=== PATIENT | female | born 1965 | race Caucasian/White ===

== ENCOUNTER → 2017-11-07 09:39 | Outpatient (CLI) | payer MEDICARE, OTHER, SELFPAY ==
--- NOTE | 2017-11-07 09:54 | XR_ITS ---
XR DEXA axial skeleton HISTORY: ITS.REASON: OSTEOPENIA ORDERING PHYSICIAN: Anatoliy Pulliam MD PATIENT AGE: 52 years COMPARISON: None FINDINGS: The BMD measured at the Right femoral neck is 0.665 g/cm squared with a T score of -2.7. This is considered Osteoporotic according to the World Health Organization criteria. Fracture risk is High. Treatment is advised. L1 L4 density has a T score of -2.3 IMPRESSION: Osteoporosis with high fracture risk. Treatment suggested. Recommend follow-up exam October 2018
== END ==
PROVIDERS: Family Provider Internal Medicine Adolescent Medicine; PCP Internal Medicine Adolescent Medicine; Visit Provider Internal Medicine Adolescent Medicine
DX: M85.89 Other specified disorders of bone density and structure, multiple sites (principal)
CPT/HCPCS: 77080

== ENCOUNTER → 2020-04-28 08:54 | Outpatient (CLI) | payer MEDICARE, OTHER, SELFPAY ==
--- NOTE | 2020-04-28 08:56 | XR_ITS ---
PROCEDURE: XR DEXA AXIAL SKELETON CLINICAL HISTORY: OSTEOPOROSIS COMPARISON: CR DEXAAX XR DEXA axial skeleton from 11/07/2017 FINDINGS: The right hip BMD is 0.615 with a T-score of -2.7. The left hip BMD is 0.630 with a T-score of -2.0. The lumbar spine BMD is 0.867 with a T-score of -1.6. Previously the lowest density was at the right femoral neck with a T-score of -2.7 IMPRESSION: This patient is considered osteoporotic according to the World Health Organization criteria. Fracture risk is high. Treatment is advised. Based on these results a follow-up exam is recommended in 1 year. Dictated by: Obed Naylor MD 04/29/2020 08:52 Obed Naylor MD in [place] 04/29/2020 08:52
== END ==
PROVIDERS: PCP Internal Medicine Adolescent Medicine; Visit Provider Internal Medicine
DX: M81.0 Age-related osteoporosis without current pathological fracture (principal)
CPT/HCPCS: 77080

== ENCOUNTER → 2020-07-27 18:49 | Outpatient (CLI) | payer MEDICARE, OTHER, SELFPAY ==
[2020-07-27 19:26] LABS: Basophils # 0.1 K/mm3 (0-0.2); Basophils % 0.7 % (0.1-2.0); Eosinophils % 0.3 % (0.1-12.0); Hematocrit 42.7 % (37.0-47.0); Hemoglobin 13.9 g/dL (12.2-16.2); Lymphocytes % 23.6 % (10-50); Mean Corpuscular HGB Conc 32.6 g/dL (31.8-35.4); Mean Corpuscular Hemoglobin 31.2 pg (27.0-31.2); Mean Corpuscular Volume 95.9 fl (81-99); Mean Platelet Volume 9.6 fl (7.4-10.4); Monocytes # 0.3 K/mm3 (0.1-1.0); Monocytes % 3.7 % (1.7-9.3); Neutrophils # 6.1 K/mm3 (1.8-7.8); Neutrophils % 71.6 % (37.0-80.0); Platelet Count 389 K/mm3 (142-424); Red Blood Count 4.46 M/mm3 (4.20-5.40); Red Cell Distribution Width 14.1 % (11.5-17.5); White Blood Count 8.5 K/mm3 (4.8-10.8)
[2020-07-27 19:30] LABS: Alanine Aminotransferase 18 U/L (12-78); Aspartate Amino Transferase 27 U/L (14-36); Blood Urea Nitrogen 11 mg/dl (7-17); Carbon Dioxide 26 mmol/L (22.0-30.0); Estimated Glomerular Filt Rate 87 ml/min (>60); GFR (African American) 105 ML/MIN (>60)
[2020-07-27 19:31] LABS: Albumin Level 4.5 g/dl (3.5-5.0); Albumin/Globulin Ratio 1.2 (1.1-1.8); Alkaline Phosphatase 76 U/L (38-126); Bilirubin,Total 0.5 mg/dl (0.2-1.3); Calcium 9.7 mg/dl (8.4-10.2); Chol/HDL Ratio 2.8 (1-3.5); Cholesterol 172 mg/dl (140-200); Globulin 3.7 g/dL (1.3-3.2); Glucose 106 mg/dl (74-100); HDL Cholesterol 61 mg/dl (40-60); Total Protein,Serum 8.2 g/dl (6.3-8.2); Triglycerides 112 mg/dl (30-150); VLDL Cholesterol 22 mg/dL (0-40)
[2020-07-27 19:42] LABS: Direct LDL Cholesterol 74.77 mg/dL (100-129)
[2020-07-27 19:52] LABS: Anion Gap 14.6 mEq/L (5-15); Chloride 104 mmol/L (98-107); Potassium 4.6 mmoL/L (3.5-5.1); Sodium 140 mmol/L (136-145)
[2020-07-27 20:00] LABS: Thyroid Stimulating Hormone 2.59 uIU/mL (0.465-4.68)
[2020-07-27 20:08] LABS: Hemoglobin A1C 5.2 % (4.0-6.0)
== END ==
PROVIDERS: Visit Provider Internal Medicine Adolescent Medicine
DX: Z00.00 Encounter for general adult medical examination without abnormal findings (principal); E78.5 Hyperlipidemia, unspecified; M19.90 Unspecified osteoarthritis, unspecified site; R73.9 Hyperglycemia, unspecified
CPT/HCPCS: 80053; 80061; 83036; 84443; 85025

== ENCOUNTER → 2021-02-07 11:00 | Outpatient (CLI) | payer MEDICARE, OTHER, SELFPAY | PROVIDERS: Visit Provider Surgery | DX: Z01.812 Encounter for preprocedural laboratory examination (principal); Z11.52 Encounter for screening for COVID-19; Z12.11 Encounter for screening for malignant neoplasm of colon | CPT/HCPCS: C9803; U0003; U0005 ==

== ENCOUNTER 2021-02-09 10:31 | Day surgery (SDC) | payer MEDICARE, OTHER, SELFPAY ==
[2021-02-03 13:48] VITALS: BMI 27.4
[2021-02-09 10:43] VITALS: BP 129/77; PULSE 103; RESP 18; TEMP 36.9; O2SAT 94
[2021-02-09 10:59] VITALS: O2SAT 97
--- NOTE | 2021-02-09 11:38 | HMH.SCOPE ---
- Procedure: Date: 02/09/21 Patient Date of :: 1965 Procedure Performed:: Colonoscopy with polypectomy by snare x2 Indications:: Patient is a 55-year-old female from [place] referred by Dr. Anatoliy Pulliam for colonoscopy. Apparently she had undergone previous colonoscopies. She had apparently undergone a colon resection for large polyp. Exact details of prior procedures and nature of her surgery are unclear as this was done at outside facility. She states that her colon resection was either in 2018 or 2019. No prior colonoscopies at this institution. Performing Provider:: Frederic Romo MD Referring Provider:: Anatoliy Pulliam MD Sedation:: MAC sedation Procedure:: Patient was taken to endoscopy procedure room. She was positioned in lateral decubitus position. Adequate intravenous sedation was achieved with anesthesia titration of propofol. Please note that she required a large amount of propofol for adequate anesthesia. Variable stiffness Olympus colonoscope was inserted via the anus. With some difficulty due to redundancy of the colon it was ultimately advanced to the anastomosis. It appeared as though she had had a right hemicolectomy. Colonoscope was able to be advanced into the afferent limb of the ileum. Colonic preparation was very poor. Visualization was extremely poor despite thorough irrigation and suctioning. There was noted to be a moderate adenomatous appearing polyp in the transverse colon just distal to the anastomosis. This was removed with cold cutting snare. Colonoscope was withdrawn through the remainder of the colon. Despite all efforts visualization was quite poor. There was noted to be a small adenomatous polyp in the distal sigmoid rectosigmoid region removed with cold cutting snare. Colonoscope was withdrawn. Findings:: Extremely poor colonic preparation Likely prior right hemicolectomy Polyp just distal to the anastomosis and small polyp in the rectosigmoid region Recommendations:: Repeat colonoscopy 6 to 12 months with aggressive preparation. Complications:: None immediately apparent Estimated blood obtained (mL): 2
[2021-02-09 11:40] VITALS: BP 98/68; PULSE 84; RESP 18; TEMP 36.1; O2SAT 97
[2021-02-09 11:50] VITALS: BP 92/65; PULSE 76; RESP 18; TEMP 36.1; O2SAT 99
[2021-02-09 12:00] VITALS: BP 92/73; PULSE 76; RESP 18; TEMP 36.1; O2SAT 99
[2021-02-09 12:25] VITALS: BP 98/68; PULSE 74; RESP 18; TEMP 36.1; O2SAT 99
--- NOTE | 2021-02-09 13:22 | HMH.ANESCL ---
[facility] Anesthesia Checklist - Patient Identification Patient Identification: Arm Band, Verbal (Name & ) - Structural Data Admitted From: Home Planned Operative Procedure/s: Colonoscopy Consent for Planned Operative Procedure(s) Verified: Yes Verified Documents: Surgical Consent - NPO Status Verified Time NPO: 00:00 - Cardiovascular Assessment Heart Sounds: S1 & S2 - Airway Assessment C-Spine Mobility Assessed: Yes TMJ Mobility Assessed: Yes Dentition: Good Dentition - Neurological Assessment Level of Consciousness: Awake, Alert, Appropriate - Anesthesia Plan ASA Class: II Anesthesia Type: General [facility] History Medical History: Denies:: Cancer, Diabetes Mellitus Type 1, Diabetes Mellitus Type 2, Internal Pacemaker, MRSA, Seizures *Have you ever received a pneumonia vaccine?: No *Have you received a flu vaccine this season?: Yes Anesthesia experience/problems:: none Other Surgeries: No: Pacemaker Amputation: No Fractures: No - *Social History Last grade of school completed: High school graduate Smoking Status: Current every day smoker # Packs/Day (cigarettes): 1 Alcohol Intake: current Alcohol Intake Frequency:: holidays/special occasions only Substance Use Type: denies use *Occupational Status:: disabled Housing: house *Travel in the last 8 weeks: None Family Hx:: Diabetes, Heart Attack, Hypertension
== END 2021-02-09 12:25 | disposition home or self-care (01) ==
LOC: OUTP 10:33
PROVIDERS: PCP Internal Medicine Adolescent Medicine; Visit Provider Surgery
PROC: 0DJD8ZZ Inspection of Lower Intestinal Tract, Via Natural or Artificial Opening Endoscopic (ICD-10-PCS; principal; 2021-02-09 11:30)
DX: Z12.11 Encounter for screening for malignant neoplasm of colon (principal); Z86.010 Personal history of colon polyps; Z90.49 Acquired absence of other specified parts of digestive tract; K63.5 Polyp of colon; Z72.0 Tobacco use; Z83.3 Family history of diabetes mellitus; Z82.3 Family history of stroke; Z82.49 Family history of ischemic heart disease and other diseases of the circulatory system; Z88.2 Allergy status to sulfonamides; Z79.899 Other long term (current) drug therapy
CPT/HCPCS: 45385; 88305

== ENCOUNTER → 2021-04-04 17:40 | Outpatient (CLI) | payer MEDICARE, OTHER, SELFPAY | PROVIDERS: Visit Provider Internal Medicine Adolescent Medicine | DX: N30.01 Acute cystitis with hematuria (principal); B96.20 Unspecified Escherichia coli [E. coli] as the cause of diseases classified elsewhere | CPT/HCPCS: 87086; 87088; 87186 ==

== ENCOUNTER → 2021-07-28 07:31 | Outpatient (CLI) | payer MEDICARE, OTHER, SELFPAY ==
--- NOTE | 2021-07-28 07:35 | CT_ITS ---
FINAL REPORT CLINICAL HISTORY: 1.5 ppd x 35 years FINDINGS: Low-Dose Chest CT CTDI vol (mGy): 2.9 DLP (mGy-cm): 96.38 Axial images were obtained from the lung apex to the mid abdomen by computed tomography. Low-dose protocol was utilized. FINDINGS: CHEST: There are multiple borderline sized mediastinal and left axillary lymph nodes, nonspecific and favor reactive. The heart is proper size. There is no pericardial or pleural effusion. Limited images of the upper abdomen are unremarkable. Lung window images demonstrate moderate to severe changes of emphysema. There is mild scarring. There are several calcified granulomas in the left lung. There is a 2 mm left lower lobe nodule seen on image 69. There is another 2 mm nodule in the left lower lobe seen on image 53. There is a pleural based nodule in the medial right lower lobe measuring 5 mm seen on image 55. IMPRESSION: Lung RADS category 2. Recommend 12 month follow-up low-dose chest CT. Reviewed, Interpreted and Dictated by Frederic Gomez III, MD Transcribed by Rush Bolaños Authenticated by Frederic Gomez III, MD on 07/28/2021 11:20:40 AM [facility]
== END ==
PROVIDERS: PCP Internal Medicine Adolescent Medicine; Visit Provider Internal Medicine Adolescent Medicine
DX: Z87.891 Personal history of nicotine dependence (principal); Z12.2 Encounter for screening for malignant neoplasm of respiratory organs
CPT/HCPCS: 71271

== ENCOUNTER 2021-10-17 16:49 | Emergency (ER) | payer MEDICARE, OTHER, SELFPAY ==
[2021-10-17 17:05] VITALS: BP 153/87; PULSE 98; RESP 16; TEMP 36.9; O2SAT 96; BMI 27.9
--- NOTE | 2021-10-17 17:10 | XR_ITS ---
PROCEDURE INFORMATION: Exam: XR Right Foot Exam date and time: 10/17/2021 5:15 PM Age: 56 years old Clinical indication: Injury or trauma; Fall; Sprain or strain; Ankle; Right; Injury date: 10/16/21 TECHNIQUE: Imaging protocol: Radiologic exam of the Right foot. Views: 3 or more views. COMPARISON: CR XR ANKLE RT MIN 3V 10/17/2021 5:14 PM FINDINGS: Bones/joints: No acute fracture or dislocation. Prominent os naviculare. Mild 1st MTP joint space narrowing. Plantar calcaneal spur. Soft tissues: Normal. IMPRESSION: No acute findings.
--- NOTE | 2021-10-17 17:10 | XR_ITS ---
PROCEDURE INFORMATION: Exam: XR Right Ankle Exam date and time: 10/17/2021 5:14 PM Age: 56 years old Clinical indication: Injury or trauma; Fall; Sprain or strain; Ankle; Right; Injury date: 10/16/21 TECHNIQUE: Imaging protocol: Radiologic exam of the Right ankle. Views: 3 or more views. COMPARISON: No relevant prior studies available. FINDINGS: Bones/joints: No acute fracture or dislocation. Plantar calcaneal spur. Ankle mortise is intact. Soft tissues: Normal. IMPRESSION: No acute findings.
--- NOTE | 2021-10-17 17:26 | HMH.EDUTC ---
[facility] [place] Clinical Impression: Ankle sprain Qualifiers: Encounter type: initial encounter Involved ligament of ankle: unspecified ligament Laterality: right Qualified Code(s): S93.401A - Sprain of unspecified ligament of right ankle, initial encounter Disposition: Home, Self-Care Condition on Discharge: Good Instructions: How To Perform RICE (Rest, Ice, Compress, Elevate), How to Apply an Jevon Wrap Additional Instructions: *weight bearing as tolerated *RICE, Rest the extremity, Ice 15-20 minutes 3-4 times daily, Compress- wear the jevon wrap as discussed as much as possible to help reduce swelling and pain, Elevate the extremity when at rest *Jevon wrap is for support and help control swelling, use it except in the shower. Be sure that is not to tight but not to loose either *Elevate when resting *Ibuprofen 600-800mg every 6-8 hours as needed for pain an inflammation. If need something more can take Tylenol in between doses of Ibuprofen to help Immediately follow up with your family doctor for new or worsening of symptoms, or no noticeable improvement over the next 3-5 days Follow up with your Family Doctor if no improvement or any worsening of symptoms Straight to ER if any life threatening symptoms Referrals: Anatoliy Pulliam MD [Primary Care Provider] - As needed Medical Decision Making - Chinedu Inquiry Pt receiving controlled substance: No Chinedu was queried for this patient: No Vital Signs: 10/17/21 17:05 Temperature 98.5 F Temperature Source Oral Pulse Rate [Left Brachial] 98 H Respiratory Rate 16 Blood Pressure [Left Arm] 153/87 H Blood Pressure Mean [Left Arm] 109 Blood Pressure Source [Left Arm] Automatic Cuff Blood Pressure Position [Left Arm] Sitting 02 Sat by Pulse Oximetry 96 Oxygen Delivery Method Room Air - Radiology Data #1 Image(s): Ankle Image Reviewed: Yes I have reviewed radiologist's interpretation IMPRESSION: No acute findings. #2 Image(s): Foot/Toes Image Reviewed: Yes I have reviewed radiologist's interpretation IMPRESSION: No acute findings. [facility] [place] HPI - General Stated complaint: r foot and ankle pain Time Seen by Provider: 10/17/21 17:26 Mode of Arrival: Ambulatory Source of Information: Patient Limitations: No Limitations Description of Symptoms (Recalled from Triage Doc. by RN): PATIENT C/O RIGHT FOOT AND ANKLE INJURY AFTER GETTING HER FOOT CAUGHT IN THE STRING OF A LAND LEVELER LAST WEEK HEENT Symptoms (Recalled from RN notes): No Resp Symptoms (Recalled from RN notes): No Skin Symptoms (Recalled from RN notes): No MS Symptoms (Recalled from RN notes): Yes Functional Status (Recalled from RN notes): WNL - History of Present Illness Provider Complaint: Patient states that last week she got her right foot caught up in lawmower sting and tripped and fell States that ever since she has been having pain and swelling in her right ankle area States that she has been walking on it but today it was stil hurting so she came in to get an xray to make sure she didnt break anything - Related Data Home Medications Medication Instructions Recorded Confirmed Acetaminophen with Codeine 1 tab PO QID 02/03/21 02/21/21 [Tylenol with Codeine #3 tablet] Alendronate Sodium [Fosamax 70mg 70 mg PO WEEKLY 02/03/21 02/21/21 Tablet] Cetirizine HCl [Zyrtec 10mg Tab*] 10 mg PO DAILY 02/03/21 02/21/21 Cholecalciferol (Vitamin D3) 2,000 unit PO DAILY 02/03/21 02/21/21 [Vitamin D3 1,000 Unit Cap] Cyclobenzaprine HCl 5 mg PO BID 02/03/21 02/21/21 [Cyclobenzaprine 10mg Tab*] Gabapentin 600 mg PO HS 02/03/21 02/21/21 Hydroxychloroquine Sulfate 200 mg PO BID 02/03/21 02/21/21 [Plaquenil 200mg tablet] Montelukast Sodium 10 mg PO HS 02/03/21 02/21/21 Omeprazole [Omeprazole 20mg Tab] 40 mg PO BID 02/03/21 02/21/21 metHOTREXate sodium [metHOTREXate 15 mg PO WEEKLY 02/03/21 02/21/21 2.5mg Tablet] Chlorpheniramine Maleate 4 mg PO DAILY 02/09/21 02/21/21 [Chlortabs]
[2021-10-17 18:19] VITALS: BP 153/87; PULSE 98; RESP 16; TEMP 36.9; O2SAT 96
== END 2021-10-17 18:25 | disposition home or self-care (01) ==
PROVIDERS: Emergency Provider Nurse Practitioner; PCP Internal Medicine Adolescent Medicine
DX: S93.401A Sprain of unspecified ligament of right ankle, initial encounter (principal)
CPT/HCPCS: 73610; 73630; 99212; G0463

== ENCOUNTER 2022-01-14 11:27 | Emergency (ER) | payer MEDICARE, SELFPAY ==
--- NOTE | 2022-01-14 12:11 | EXP.UTC ---
Discharge Plan Disposition Patient Disposition: Home, Self-Care Condition: Good Prescriptions Prescriptions: New benzonatate [benzonatate] 100 mg capsule 100 mg PO TIDP PRN (Reason: Cough) Qty: 30 0RF cefdinir 300 mg capsule 300 mg PO BID Qty: 20 0RF methylprednisolone 4 mg Tablets,Dose Pack 4 mg PO DIRECTED Qty: 21 0RF No Action cyclobenzaprine 10 MG tablet 5 mg PO BID cetirizine 10 MG tablet 10 mg PO DAILY alendronate 70 MG tablet 70 mg PO WEEKLY Rx Instructions: sun acetaminophen-codeine 1 EACH tablet 1 tab PO QID methotrexate sodium 2.5 MG tablet 15 mg PO WEEKLY Rx Instructions: 6 tablets weekly-FRI gabapentin 300 MG capsule 600 mg PO HS montelukast 10 MG tablet 10 mg PO HS hydroxychloroquine 200 MG tablet 200 mg PO BID cholecalciferol (vitamin D3) 1,000 UNIT capsule 2,000 unit PO DAILY omeprazole 20 MG tablet,delayed release (DR/EC) 40 mg PO BID chlorpheniramine maleate 4 MG tablet 4 mg PO DAILY Referrals Follow up/Referrals: Anatoliy Pulliam MD [Primary Care Provider] - See instructions Activity Restrictions/Add. Instructions Additional Instructions/Restrictions: Drink plenty of fluids. Take tylenol or ibuprofen for pain or fever. Take the medications as directed. Follow up with your regular doctor. GO TO THE ER FOR ANY WORSENING SYMPTOMS We will culture the urine. That will tell what bacteria is causing your infection and which antibiotics will treat it best. Sometimes the first antibiotic we prescribe turns out to not work against different bacteria. So, make sure you follow up within 3 days if you are not getting better. Clinical Impressions Clinical Impression: Sinusitis, UTI (urinary tract infection) Instructions Patient Instructions: Sinusitis, Urine Culture, DI for Sinusitis, DI for Urinary Tract Infection (UTI) Discharge ED Provider: Shorty Castaneda [facility] General Stated complaint: possible kidney and sinus infection Time Seen by Provider: 01/14/22 12:10 History of Present Illness Provider Complaint: She states that for the past 3 days she has had sinus congestion. She is also having low back pain and dysuria with foul smelling urine. Related Data Home Medications Medication Instructions Recorded Confirmed acetaminophen 300 mg-codeine 30 mg 1 tab PO QID Pain 02/03/21 02/21/21 tablet alendronate 70 mg tablet 70 mg PO WEEKLY Osteoporosis 02/03/21 02/21/21 cetirizine 10 mg tablet 10 mg PO DAILY allergies 02/03/21 02/21/21 cholecalciferol (vitamin D3) 25 2,000 unit PO DAILY Supplement 02/03/21 02/21/21 mcg (1,000 unit) capsule cyclobenzaprine 10 mg tablet 5 mg PO BID muscle spasms 02/03/21 02/21/21 gabapentin 300 mg capsule 600 mg PO HS Pain 02/03/21 02/21/21 hydroxychloroquine 200 mg tablet 200 mg PO BID lupus 02/03/21 02/21/21 methotrexate sodium 2.5 mg tablet 15 mg PO WEEKLY lupus 02/03/21 02/21/21 montelukast 10 mg tablet 10 mg PO HS allergies 02/03/21 02/21/21 omeprazole 20 mg tablet,delayed 40 mg PO BID stomach 02/03/21 02/21/21 release chlorpheniramine maleate 4 mg 4 mg PO DAILY . 02/09/21 02/21/21 tablet Previous Rx's Medication Instructions Recorded benzonatate 100 mg capsule 100 mg PO TIDP PRN Cough #30 caps 01/14/22 cefdinir 300 mg capsule 300 mg PO BID #20 caps 01/14/22 methylprednisolone 4 mg tablets in 4 mg PO DIRECTED #21 tabs 01/14/22 a dose pack Allergies Allergy/AdvReac Type Severity Reaction Status Date / Time Sulfa (Sulfonamide Allergy Unknown Verified 01/14/22 12:32 Antibiotics) [facility] Social History Smoking Status: Current every day smoker second hand exposure: No alcohol intake: never substance use type: denies use current occupational status: other Travel in the last 8 weeks: None housing: house current occupational exposure
[2022-01-14 12:29] VITALS: BP 112/84; PULSE 117; RESP 18; TEMP 36.8; O2SAT 99; BMI 27.4
[2022-01-14 13:01] VITALS: BP 112/84; PULSE 117; RESP 18; TEMP 36.8
[2022-01-14 13:09] LABS: Apearance,Urine Cloudy (Clear); Color,Urine Dark Yellow (Yellow); PH,Urine 5.5 (5.0-8.5); Specific Gravity, Urine >= 1.030 (1.005-1.030)
[2022-01-14 13:10] LABS: Bilirubin,Urine 2+ (Negative); Blood, Urine 3+ (Negative); Glucose,Urine (UA) Negative (Negative); Ketones,Urine Negative (Negative); Protein,Urine 1+ (Negative)
[2022-01-14 13:11] LABS: UTC Leukocyte Esterase,Urine Negative (Negative); UTC Nitrate,Urine Negative (Negative); Urobilinogen,Urine 2 EU/dl (0.2)
== END 2022-01-14 13:01 | disposition home or self-care (01) ==
PROVIDERS: Emergency Provider Nurse Practitioner Family; PCP Internal Medicine Adolescent Medicine
DX: M54.50 Low back pain, unspecified (principal); R30.0 Dysuria; R09.81 Nasal congestion; R05.9 Cough, unspecified; F17.210 Nicotine dependence, cigarettes, uncomplicated; Z79.1 Long term (current) use of non-steroidal anti-inflammatories (NSAID); Z79.52 Long term (current) use of systemic steroids; Z79.899 Other long term (current) drug therapy; Z88.2 Allergy status to sulfonamides
CPT/HCPCS: 81003; 87086; 99213; G0463

== ENCOUNTER → 2022-10-26 12:28 | Outpatient (CLI) | payer MEDICARE, SELFPAY ==
--- NOTE | 2022-10-26 13:41 | CT_ITS ---
FINAL REPORT CLINICAL HISTORY: lung cancer screening, 1 03/27 ppd x33 years COMPARISON: 07/28/2021 FINDINGS: CT CHEST LOW DOSE SCREENING HISTORY: Screening exam for lung cancer. Current smoker, 50 pack year smoking history DOSE: CTDIvol: 2.9 mGy, DLP: 95.86 mGy*cm COMPARISON: 07/28/2021. TECHNIQUE: Axial CT without IV contrast administration using low dose protocol FINDINGS: No acute lung disease is present . No pulmonary lesions are seen suspicious for neoplasm. There are moderate to severe changes of emphysema once again identified. There is mild scarring noted bilaterally as well as calcified granulomas predominantly on the left side. There is a 2 mm left lower lobe nodule, best seen on axial image #60, which is unchanged since the prior CT. There is another 2 mm left lower lobe nodule best seen on axial image #47, also unchanged. There is a third 5 mm nodule seen on axial image #51 that is pleural-based in the medial right lower lobe. No new nodules are seen. No pleural or pericardial effusion is seen . No adenopathy or mass lesion is present . IMPRESSION: Multiple small 2 to 5 mm nodules unchanged since prior CT of 2021. LUNG RADS CATEGORY 2 RECOMMENDATION: 12 month LDCT follow up Reviewed, Interpreted and Dictated by Frederic Gomez III, MD Transcribed by Katie Madrigal Authenticated and [facility]
== END ==
PROVIDERS: PCP Internal Medicine Adolescent Medicine; Visit Provider Internal Medicine Pulmonary Disease
DX: Z87.891 Personal history of nicotine dependence (principal); Z12.2 Encounter for screening for malignant neoplasm of respiratory organs; R06.02 Shortness of breath
CPT/HCPCS: 71271; 94060; 94618; 94726; 94729

== ENCOUNTER 2022-12-22 09:31 | Day surgery (SDC) | payer MEDICARE, SELFPAY ==
[2022-12-19 14:00] VITALS: BMI 27.4
[2022-12-22] VITALS (7 sets, daily range): BP systolic 89–114; BP diastolic 57–78; PULSE 76–98; RESP 14–18; TEMP 36.1–36.7; O2SAT 94–98
--- NOTE | 2022-12-22 10:02 | P.PCN_ITS ---
Procedure: Date: 12/22/22 Patient Date of :: 1965 Procedure Performed:: Total colonoscopy to ileum with polypectomy using cold biopsy forceps Indications:: Patient is a 57-year-old female from [place]. She had previously had colonoscopies done at outside hospital and reportedly had numerous polyps. I had done colonoscopy on 02/21/2021. She had evidence of previous right colon resection apparently for polyps. At that time she had a very poor preparation. She did have a couple polyps removed which returned as tubular adenoma. I recommended repeat colonoscopy in 6 months with 2-day aggressive bowel prep. She underwent Clenpiq bowel preparation. Performing Provider:: Frederic Romo MD Referring Provider:: Anatoliy Pulliam MD Sedation:: MAC sedation Procedure:: Patient history was obtained and appropriate physical examination was performed. Patient's medications and allergies were reviewed. Informed consent was obtained after explaining the benefits, alternatives, and risks of the procedure including, but not limited to, bleeding, perforation, missed lesions, and adverse reaction to anesthesia medications. Patient was transported to endoscopy procedure room. Patient was connected to monitoring devices. Throughout the procedure the patient's blood pressure, pulse, and oxygen saturations were monitored continuously. Patient identification and planned procedure were verified by the staff. Patient was positioned in lateral decubitus position. Digital anorectal exam was performed. Variable stiffness Olympus colonoscope was inserted and advanced under direct visualization to the cecum. Adequacy of the colonic preparation was noted. The colonoscope was advanced a short distance into the terminal ileum. The colonoscope was then slowly withdrawn while carefully examining the color, texture, anatomy, and integrity of the mucosoa circumferentially. Within the rectum retroflexion was performed. Colonoscope was then withdrawn. . Colonoscope was advanced to the terminal ileum as it appears as though she had previous right colon resection. Colonic preparation was poor but adequate visualization was achieved with high-volume trans colonoscopic irrigation and suctioning. There appeared to be a tiny diminutive polyp removed with cold biopsy forceps in the descending colon. . Findings:: Evidence of previous right hemicolectomy Poor prep Small descending colon polyp Recommendations:: Given prior history of adenomatous polyps even requiring resection with poor pre p recommend repeat colonoscopy within 2 years with aggressive bowel prep. Complications:: None immediate Estimated blood obtained (mL): 1 Colonoscopy Component Colonoscopy Component Was a colonoscopy performed during today's procedure?: Yes Recommended follow up colonoscopy of at least 10 years?: No If no, follow up colonoscopy recommended in ___ years?: 2 Reason for not recommending >/= 10 yr follow-up interval?: Polyps Prep
--- NOTE | 2022-12-22 10:05 | P.PNANES_ITS ---
[facility] Disclaimer: The information contained in this section may have been updated after the patient was seen, as this information can be updated by other users. Medical History Ankle sprain Chronic sinusitis COPD mixed type Encounter for screening for malignant neoplasm of lung Fibromyalgia LGSIL on Pap smear of cervix Lupus Mixed stress and urge urinary incontinence Multiple lung nodules on CT Osteoarthritis Smoking greater than 30 pack years Surgical History History of colon resection Family History Other Anemia Cancer Diabetes Heart attack Hyperlipidemia Hypertension Stroke Thyroid disorder Social History (Updated 12/22/22 @ 09:53 by Arlene Dixon RN) Smoking Status: Current every day smoker second hand exposure: No alcohol intake: never substance use type: denies use current occupational status: disabled Travel in the last 8 weeks: None housing: house current occupational exposures/hazards: No caffeine: Yes [facility] Anesthesia Checklist Patient Identification Patient Identification: Arm Band Structural Data Admitted From: Home Planned Operative Procedure/s: colonoscopy Consent for Planned Operative Procedure(s) Verified: Yes Verified Documents: Surgical Consent and History and Physical NPO Status Verified Time NPO: 00:00 Additional verifications Anesthesia Reactions: No Airway Assessment Mallampati Score:: Class II C-Spine Mobility Assessed: Yes TMJ Mobility Assessed: Yes Dentition: Edentulous Neurological Assessment Level of Consciousness: Awake and Alert Anesthesia Plan Anesthesia Risk discussed: Yes Anesthesia Plan: Verified ASA Class: II Anesthesia Type: MAC
== END 2022-12-22 10:34 | disposition home or self-care (01) ==
PROVIDERS: PCP Internal Medicine Adolescent Medicine; Visit Provider Surgery
PROC: 0DJD8ZZ Inspection of Lower Intestinal Tract, Via Natural or Artificial Opening Endoscopic (ICD-10-PCS; CPT 45380; principal; 2022-12-22 10:30)
DX: Z12.11 Encounter for screening for malignant neoplasm of colon (principal); Z86.010 Personal history of colon polyps; Z90.49 Acquired absence of other specified parts of digestive tract; Z91.199 Patient's noncompliance with other medical treatment and regimen due to unspecified reason; K63.5 Polyp of colon
CPT/HCPCS: 45380; 88305; J2704

== ENCOUNTER 2023-11-22 14:10 | Outpatient (CLI) | payer MEDICARE, SELFPAY ==
--- NOTE | 2023-11-22 14:11 | CT_ITS ---
FINAL REPORT TECHNIQUE: Axial CT images of the chest were obtained without contrast. Low-dose protocol was utilized. This study was performed with techniques to keep radiation doses as low as reasonably achievable (ALARA). Individualized dose reduction techniques using automated exposure control or adjustment of mA and/or kV according to the patient's size were employed. CLINICAL HISTORY: lung cancer screening current smoker 1 ppd x 40 years COMPARISON: 10/26/2022 FINDINGS: CT CHEST WITHOUT, LOW DOSE SCREENING CT Di Vol: 2.90 mGy DLP: 101.34 mGy*cm There is no axillary, mediastinal, or hilar adenopathy. The heart size is normal. There are mild coronary artery calcifications. There are advanced changes of centrilobular emphysema. There is no pleural or pericardial effusion. The lung windows show a stable 2 mm nodule in the left lung base best seen on image 65 of series 3. Six a peripheral left upper lobe 4 mm nodule on image 30 of series 3 is also stable. The pleural-based medial right base nodule is less well seen on today's exam. The nodule along the left major fissure is calcified. Limited images of the upper abdomen demonstrate no acute findings. IMPRESSION: Overall, essentially stable pulmonary nodules. LR Category 2S: 12 month follow-up low-dose chest CT is recommended per Fleischner criteria. Modifier S: Advanced changes of centrilobular emphysema. Reviewed, Interpreted and Dictated by Mark Luna MD Transcribed by Lorrie Ortiz Authenticated and [facility]
== END 2023-11-22 23:59 | disposition home or self-care (01) ==
LOC: RAD 14:11
PROVIDERS: PCP Internal Medicine Adolescent Medicine; Visit Provider Internal Medicine Pulmonary Disease
DX: F17.210 Nicotine dependence, cigarettes, uncomplicated (principal)
CPT/HCPCS: 71271

== ENCOUNTER 2023-12-04 11:05 | Outpatient (CLI) | payer MEDICARE, SELFPAY | END 2023-12-04 23:59 | disposition home or self-care (01) | LOC: RT 11:07 | PROVIDERS: PCP Internal Medicine Adolescent Medicine; Visit Provider Internal Medicine Pulmonary Disease | DX: J44.9 Chronic obstructive pulmonary disease, unspecified (principal) | CPT/HCPCS: 94762 ==

== ENCOUNTER 2024-06-11 09:59 | Outpatient (CLI) | payer MEDICARE, SELFPAY | END 2024-06-11 23:59 | disposition home or self-care (01) | LOC: RT 10:00 | PROVIDERS: PCP Internal Medicine Adolescent Medicine; Visit Provider Internal Medicine Pulmonary Disease | DX: J44.9 Chronic obstructive pulmonary disease, unspecified (principal); R06.09 Other forms of dyspnea | CPT/HCPCS: 94010; 94618 ==

== ENCOUNTER 2024-12-04 08:47 | Outpatient (CLI) | payer MEDICARE, SELFPAY ==
--- OUTSIDE RECORDS SUMMARY | 2024-06-28 17:30 | XMS_ITS ---
Author Organization [facility] Address [address] [facility] [address] [place] [address] Care Team Providers Care Automatic Buffer Name Role Phone Anatoliy Pulliam Primary Care Provider Migration, Provider Unavailable Unavailable Allergies Allergen (clinical drug ingredient) Drug/Non Drug Allergy documented on EMR Reaction Allergy Type Onset Date Status SULFA (uncoded) Unknown Allergy Acti ve [facility]ASON FOR VISIT [facility] Encounter Medications Medication SIG (Take, Route, [...] review and pick correct strength-formulat ion [facility]. If intended option is not shown, [...] review and pick correct strength-formulat ion from [employer] options. If intended option is not shown, [...] Active Encounters Encounter Location Date Provider Diagnosis [facility] [address] [place] [address] 06/28/2024 Provider Migration Arthritis of multipl e [...] Details Provider Name:Anatoliy Pulliam, 01/15/2025 09:30:00 AM, [address] [place] [address], [phone], Progress Notes * Natividad JUAREZ EDOB:1964 (59 yo F)Acc No.[id number]:06/28/2024 Patient: Natividad PROCTOR Provider: Stone bustillo Migration :1965 A ge:59 Y S ex:Female Date:06/28/2024 Address:[address] [place], [place] [phone] Pcp:Anatoliy Pulliam Subjective: * Chief Complaints: * 1 . [facility] En[facility]. * Medical History: * Medications: T aking Mucinex 600 MG Tablet Extended Release 12 Hour 1 tab(s) orally every 12 hours , Taking Stiolto Respimat 2.5 MCG-2.5 MCG/INH AEROSOL 2 PUFF(S) INHALED EVERY 24 HOURS , Notes to Pharmacist: *Please review and pick correct strength-formulation from [employer] options. If intended option is not shown, [...] *Please review and pick correct strength-formulation from [employer] options. If intended option is not shown, [...] Electronic signature of Prov ider Migration on 12/04/2024 at 09:02 AM EDT Sign off status: Pending * Provider: Stone bustillo Migration Date: 0 06/28/2024 Generated for Olayinka montalvo/Sulma/Alberto on: 0 12/04/2024 09:02 AM EDT
--- OUTSIDE RECORDS SUMMARY | 2024-10-16 05:00 | XMS_ITS ---
Author Organization [facility] D JHONNY Address [address] [facility] [address] [place] [address] Care Team Providers Care Weaver Hand Name Role Phone Anatoliy Cast Primary Care Provider Allergies Allergen (clinical drug ingredient) Drug/Non Drug Allergy documented on EMR Reaction Allergy Type Onset Date Status SULFA (uncoded) Unknown Allergy Acti ve Results Component Value Reference Range Notes LIPID PANEL, STANDARD (7600) Reviewed date:10/20/2024 11:30:30 AM Interpretation: Performing Lab:BRISSA, eKonnekt Renee-Juan R [id number] [facility], Juan R [id number] Boby Walden Notes/Report: NON-FASTING; NON-FASTING; NON-FASTING CHOLESTEROL, TOTAL 141 <200 mg/dL HDL CHOLESTEROL 62 > OR = 50 mg/dL TRIGLYCERIDES 93 <150 mg/dL LDL-CHOLESTEROL 61 Reference range: <100 Desirable range <100 mg/dL for primary prevention; <70 mg/dL for patients with CHD or diabetic patients with > or = 2 CHD risk factors. LDL-C is now calculated using the Gray-Faizan calculation, which is a validated novel method providing better accuracy than the Friedewald equation in the estimation of LDL-C. Gray REYES et al. KHOA. 2013;310(19): 3925-3927 (http://education.Anatexis.[employer]/faq/FAQ16 4) CHOL/HDLC RATIO 2.3 <5.0 (calc) NON HDL CHOLESTEROL 79 <130 mg/dL (calc) For patients with diabetes plus 1 major ASCVD risk factor, treating to a non-HDL-C goal of <100 mg/dL (LDL-C of <70 mg/dL) is considered a therapeutic option. COMPREHENSIVE METABOLIC PANE L (70910) Reviewed date:10/20/2024 11:30:30 AM Interpretation: Performing Lab:BRISSA [id number] [employer], Qorus [id number] Boby Walden Notes/Report: NON-FASTING; NON-FASTING; NON-FASTING GLUCOSE 78 65-99 mg/dL Fasting reference interval UREA NITROGEN (BUN) 12 7-25 mg/dL CREATININE 0.80 0.50-1.03 mg/dL EGFR 85 > OR = 60 mL/min/1.73m2 BUN/CREATININE RATIO SEE NOTE: 6-22 (calc) Not Reported: BUN and Creatinine are within reference range. SODIUM 138 135-146 mmol/L POTASSIUM 4.1 3.5-5.3 mmol/L CHLORIDE 105 98-110 mmol/L CARBON DIOXIDE 23 20-32 mmol/L CALCIUM 8.9 8.6-10.4 mg/dL PROTEIN, TOTAL 7.3 6.1-8.1 g/dL ALBUMIN 3.9 3.6-5.1 g/dL GLOBULIN 3.4 1.9-3.7 g/dL (calc) ALBUMIN/GLOBULIN RATIO 1.1 1.0-2.5 (calc) BILIRUBIN, TOTAL 0.4 0.2-1.2 mg/dL ALKALINE PHOSPHATASE 66 37-153 U/L AST 18 10-35 U/L ALT 11 6-29 U/L HEMOGLOBIN A1c (496) Reviewed date:10/20/2024 11:30:30 AM Interpretation: Performing Lab:BRISSA [id number] [employer], Qorus [id number] Boby Walden Notes/Report: NON-FASTING; NON-FASTING; NON-FASTING HEMOGLOBIN A1c 5.2 <5.7 % For the purpose of screening for the presence of diabetes: <5.7% Consistent with the absence of diabetes 5.7-6.4% Consistent with increased risk for diabetes (prediabetes) > or =6.5% Consistent with diabetes This assay result is consistent with a decreased risk of diabetes. Currently, no consensus exists regarding use of hemoglobin A1c for diagnosis of diabetes in children. According to [place] Diabetes Association (ADA) guidelines, hemoglobin A1c <7.0% represents optimal control in non- diabetic patients. Different metrics may apply to specific patient populations. Standards of Medical Care in Diabetes(ADA). SCREEN MAMMO W CAD BILAT Reviewed date:10/20/2024 09:56:41 AM Interpretation: Performing Lab: Notes/Report: [address] [place] [address] Name: EUNICE JUAREZ Exam Date: 10/20/2024 : 1965 Age 59 years Gender: F Physician: ANATOLIY CAST Facility: [facility] Facility HSV: Outpatient Exam: MISAEL SCREEN MAMMO W CAD BILAT Exam: 3-D screening mammography including tomosynthesis and CAD (Computer Assisted Detection). Clinical indication: Asymptomatic screening exam Comparison: Exams to 2022 TECHNIQUE: Routine bilateral 2D screening mammogram with CC and MLO views obtained. 3-D tomosynthesis and Computer assisted detection were utilized for this exam. BREAST DENSITY: The breasts are heterogeneously dense, which may obscure small masses FINDINGS: No suspicious mass, architectural distortion, or suspicious calcifications are present. IMPRESSION: No evidence of malignancy in either breast Recommendation: Annual screening mammography recommended in one year The results of this report will be communicated to the patient by letter in layman's terms. ACR BI-RADS: BI-RADS assessment category 1: Negative mammogram Mammography does not detect approximately 10-15% of breast cancers. A normal mammogram does not exclude breast cancer in a patient with palpable mass or abnormal findings on physical examination. These patients may need biopsies and when clinically indicated a biopsy should not be postponed because of a normal mammogram. If the patient has breast surgery or biopsy, FDA/MQSA Regulatory Guidelines mandate that this facility receive pathologic results for follow-up correlation. Electronically signed by: Kai Medrano MD 10/20/2024 09:26 AM EDT Dictated By: Kai Medrano Transcribed By: Transcribed On: 10/20/2024 9:15 AM Electronically signed by: Kai Medrano 10/20/2024 Thank you for referring EUNICE JUAREZ to [facility]. Legally authenticated by GRAEME FOSTER MD 2024-10-20 09:15:00 REASON FOR VISIT wellness, wants to know if will take over allergy meds Medications Medication SIG (Take, Route, Frequency, Duration) Notes Start Date End Date Status Cyclobenzaprine HCl 5 MG 1-2 tabs orally qhs Active Methotrexate 2.5 MG 6 TABS ORALLY ONCE A WEEK Active Xyzal Allergy 24HR 5 MG 1 tab(s) orally once a day (in the evening); Duration: 30 day(s) 07/23/2020 Active Ventolin HFA 108 (90 Base) MCG/ACT 2 puff(s) inhaled every 6 hours; Duration: 30 day(s) Active Omeprazole 40 MG 1 cap(s) orally once a day; Duration: 90 days Active Gabapentin 300 MG 2 cap(s) orally qhs; Duration: 30 day(s) Active Diclofenac Sodium 75 MG 1 tab(s) orally 2 times a day for one week then b.i.d. p.r.n.; Duration: 30 day(s) Active Montelukast Sodium 10 MG 1 tab(s) orally once a day; Duration: 30 day(s) Active Hydroxychloroquine Sulfate 2 00 MG 1 tab(s) orally bid Active Acetaminophen-Codeine 300-30 MG 1 tab(s) orally four times a day; Duration: 30 days 10/03/2024 Active buPROPion HCl ER (XL) 150 MG 1 tablet in the morning Orally Once a day; Duration: 90 days 07/17/2024 Active Varenicline Tartrate 1 MG 1 tablet after eating Orally Twice a day; Duration: 90 days 10/16/2024 Active Stiolto Respimat 2.5 MCG-2.5 MCG/INH 2 PUFF(S) INHALED EVERY 24 HOURS Active Mucinex 600 MG 1 tab(s) orally ever y 12 hours Active Dicyclomine HCl 10 MG 2 cap(s) orally da praveen for abd spasm; Duration: 30 days 07/04/2022 Active Social History Tobacco Use: Social History Observation Description Date Details (start date - stop date) Current Smoker NA - NA Smoking: Question Answer Notes Are you a: current smoker How often do you smoke cigarettes? every day How many cigarettes a day do you smoke? 11-20 Problems Problem Type SNOMED Code ICD Code Onset Dates Problem Status W/U Status Risk Notes Problem Seasonal allergy (278681424) Seasonal allergies (J30.2) Active confirmed Vital Signs Temperature 97.9 degrees Fahrenheit 10/17/19 25 Blood pressure systolic 118 mm Hg 10/17/19 25 Blood pressure diastolic 72 mm Hg 025 Heart Rate 82 /min 10/16/2024 Height 5 ft 3.5 in in 10/16/2024 Weight 157 lbs 10/16/2024 BMI 27.37 kg/m2 10/16/2024 Encounters Encounter Location Date Provider Diagnosis [address] [id number] 10/16/2024 Anatoliy Mackeyjoel Personal history of nicotine dependence Z87.891 ; Hyperlipemia, idiopathic familial E78.5 ; Family history of diabetes mellitus Z83.3 ; Chronic obstructive pulmonary disease, unspecified COPD type J44.9 ; Seasonal allergies J30.2 ; Screening mammogram, encounter for Z. and Routine medical exam Z00.00 Assessments Encounter Date Diagnosis (ICD Code) Assessment Notes Treatment Notes Treatment Clinical Notes Section Notes 10/16/2024 Personal history of nicotine dependence (ICD-10 - Z87.891) - Started on Wellbutrin 150mg at last visit for TUD, has decreased her smoking from 1 pack to 1/2 pack per day, does not noticed changes in cravings or mood - Has tried Chantix in the past, was able to quit for 9 months, will to try again if covered by insurance - Will trial Chantix again, counseled on use 10/16/2024 Hyperlipemia, idiopathic familial (ICD-10 - E78.5) - Repeat lipid panel 10/16/2024 Family history of diabetes mellitus (ICD-10 - Z83.3) - Check A1C 10/16/2024 Chronic obstructive pulmonary disease, unspecified COPD type (ICD-10 - J44.9) 10/16/2024 Seasonal allergies (ICD-10 - J30.2) - Refill singular and Xyzal for allergies 10/16/2024 Screening mammogram, encounter for (ICD-10 - Z12.31) 10/16/2024 Routine medical exam (ICD-10 - Z00.00) - No memory concerns, was able to recall 3 words - No recent falls, feels safe at home - Vaccines UTD, will do pneumonia shot after age 60 - Gets [facility]a scans through [facility] - Colonscopy scheduled this fall with history of partial colectomy - Due for mammogram, referral placed Plan Of Treatment Medication Medication Name Sig Start Date Stop Date Notes Varenicline Tartrate 1 MG 1 tablet after eating Orally Twice a day; Duration: 90 days 10/16/2024 Treatment Notes Assessment Notes Personal history of nicotine dependence - Started on Wellbutrin 150mg at last visit for TUD, has decreased her smoking from 1 pack to 1/2 pack per day, does not noticed changes in cravings or mood - Has tried Chantix in the past, was able to quit for 9 months, will to try again if covered by insurance - Will trial Chantix again, counseled on use Hyperlipemia, idiopathic familial - Repe at lipid panel Family history of diabetes mellitus - Ch caitlyn A1C Seasonal allergies - Refill singular an d Xyzal for allergies Routine medical exam - No memory concerns, was able to recall 3 words - No recent falls, feels safe at home - Vaccines UTD, will do pneumonia shot after age 60 - Gets Dexa scans through [facility] - Colonscopy scheduled this fall with history of partial colectomy - Due for mammogram, referral placed Next Appt Details Follow Up: 3 Months,prn, Margi son: Provider Name:Anatoliy Cast, 01/15/2025 09:30:00 AM, [address] [place] [address], [id number], Progress Notes * Eunice JUAREZ EDOB:1964 (59 yo F)Acc No.[id number]:10/16/2024 Progress notes Patient: Eunice PROCTOR E Provider: Seema Cast MD :1965 A ge:59 Y S ex:Female Date:10/16/2024 Address:[address] [place] [address], [place], [id number] Subjective: * Chief Complaints: * 1 . Wellness. 2. Wants to know if will take over allergy meds. * HPI: g en: Eunice Juarez is a 59 yo F here for medicare wellness. Today she asks about taking over her allergy medicine prescriptions since she is no longer seeing an food service ambassador. She was started on Wellbutrin at last visit for smoking cessation. She has not noticed a change in her cravings but has decreased smoking from about 1 pack to 1/2 pack per day. She has tried Chantix in the past and was able to quit for 9 months. She is willing to try again if insurance will cover it. She is due for mammogram but otherwise up to date with [facility]. * Medical History: R ecurrent UTI, Hypertension, Esophageal reflux, colitis with GI bleeding diagnosed February 2015, colonoscopy March 2015 - repeated 12/16 with isolated hyperplastic polyp, mild osteopenia on DEXA scan 2013 - severe osteoporosis on DEXA 10/2017, Colonoscopy 2017, large polyp, repeat Mar 2018 with recurrent polyps and resection recommended, SLE (skin biopsy 2006, started plaquenil) + NICO, systemic symptoms with raynauds, SICCA. Now also on MTX, Osteoarthritis, multiple joints, Chronic allergies, Generalized anxiety, Tobacco use, chronic opioid therapy, appropriate UDS 05/16, Birads 2 LDCT 08/14 - 12 month f/u recommended., Normal Mammogram 03/2022, LGSIL on pap/colposcopy 05/18 - follows with Dr. Rios. * Surgical History: c olonoscopy 12/2017, right colon resection for recurrent cecal polyp 06/11. * Hospitalization/Major Diagno stic Procedure: D enies Past Hospitalization. * Family History: F ather: , bladder cancer, diagnosed with Cancer, Heart Disease. M other: alive, cervical cancer, diagnosed with Cancer, Hypertension. P aternal Grand Father: . P aternal Grand Mother: . M aternal Grand Father: . M aternal Grand Mother: . S iblings: alive. C piter: alive. 1 brother(s) , 3 sister(s) . 1 son(s) . . * Social History: S moking A re you a: c urrent smoker, H ow often do you smoke cigarettes? e very day, H ow many cigarettes a day do you smoke? 1 1-20. R ecreational drug use: no. Home smoke detector use: yes. Living Will: No. Alcohol: no. Travel outside [place]: no. Occupation: disabled. * Medications: T aking Mucinex 600 MG Tablet Extended Release 12 Hour 1 tab(s) orally every 12 hours , Taking Stiolto Respimat 2.5 MCG-2.5 MCG/INH AEROSOL 2 PUFF(S) INHALED EVERY 24 HOURS , Taking Diclofenac Sodium 75 MG Tablet Delayed [...] 6 TABS ORALLY ONCE A WEEK , Taking Ventolin HFA 108 (90 Base) MCG/ACT Aerosol Solution 2 puff(s) inhaled every 6 hours , Taking Xyzal Allergy 24HR 5 MG Tablet 1 tab(s) orally once a day (in the evening) , Taking Omeprazole 40 MG Capsule Delayed Release 1 cap(s) orally once a day , Taking Dicyclomine HCl 10 MG Capsule 2 cap(s) orally daily for abd spasm , Taking buPROPion HCl ER (XL) 150 MG Tablet Extended Release 24 Hour 1 tablet in the morning Orally Once a day , Taking Acetaminophen-Codeine 300-30 MG Tablet 1 tab(s) orally four times a day , Discontinued Vitamin D3 50 MCG (2000 UT) Tablet 1 tab(s) orally once a day , Medication List reviewed and reconciled with the patient * Allergies: S ULFA. Objective: * Vitals: N urse: dw, Pain: 4, Temp: 97.9, RR: 20, HR: 82, BP: 118/72, Ht: 5 ft 3.5 in, Wt: 157, BMI:27.37. * Examination: G eneral Examination: General P leasant and Cooperative, NAD on RA,. Heart: R egular Rate and Rhythm, no murmur, rubs or gallops. Lungs: L CTAB, No wheezes, crackles or rhonchi, Good air movement,. Assessment: * Assessment: 1. P ersonal history of nicotine dependence - Z87.891 (Primary) 2 . H yperlipemia, idiopathic familial - E78.5 3 . F amily history of diabetes mellitus - Z83.3 4 . C hronic obstructive pulmonary disease, unspecified COPD type - J44.9 5. S easonal allergies - J30.2 6 . S creening mammogram, encounter for - Z12.31 7 . R outine medical exam - Z00.00 Plan: * Treatment: 2. H yperlipemia, idiopathic familial L AB: LIPID PANEL, STANDARD (7600) Value Reference Range T RIGLYCERIDES 93 <150 - mg/dL * C HOLESTEROL, TOTAL 141 <200 - mg/dL * H DL CHOLESTEROL 62 > OR = 50 - mg/dL * L DL-CHOLESTEROL 61 - mg/dL (calc) * C HOL/HDLC RATIO 2.3 <5.0 - (calc) * N ON HDL CHOLESTEROL 79 <130 - mg/dL (calc) * Manoj Perez 10/20/2024 1 1:30:16 AM EDT > pt notifiedThis lab was reviewed by Manoj Perez on 10/20/2024 at 11:30 AM EDT ?LAB: COMPREHENSIVE METABOLIC PANEL (34202)* Value Reference Range G LUCOSE 78 65-99 - mg/dL * U MARGI NITROGEN (BUN) 12 7-25 - mg/dL * C REATININE 0.80 0.50-1.03 - mg/dL * B UN/CREATININE RATIO SEE NOTE: 6-22 - (calc) * S ODIUM 138 135-146 - mmol/L * P OTASSIUM 4.1 3.5-5.3 - mmol/L * C HLORIDE 105 98-110 - mmol/L * C ARBON DIOXIDE 23 20-32 - mmol/L * C ALCIUM 8.9 8.6-10.4 - mg/dL * P ROTEIN, TOTAL 7.3 6.1-8.1 - g/dL * A LBUMIN 3.9 3.6-5.1 - g/dL * G LOBULIN 3.4 1.9-3.7 - g/dL (calc ) * A LBUMIN/GLOBULIN RATIO 1.1 1.0-2.5 - (calc) * B ILIRUBIN, TOTAL 0.4 0.2-1.2 - mg/dL * A LKALINE PHOSPHATASE 66 37-153 - U/L * A ST 18 10-35 - U/L * A LT 11 6-29 - U/L * E GFR 85 > OR = 60 - mL/min/1 .73m2 * Manoj Perez 10/20/2024 1 1:30:16 AM EDT > pt notifiedThis lab was reviewed by Manoj Perez on 10/20/2024 at 11:30 AM EDT ?LAB: HEMOGLOBIN A1c (496)* Value Reference Range H EMOGLOBIN A1c 5.2 <5.7 - % * Nydia Perezta 10/20/2024 1 1:30:16 AM EDT > pt notifiedThis lab was reviewed by Manoj Perez on 10/20/2024 at 11:30 AM EDT Notes: - Repeat lipid panel??3.?Family history of diabetes mellitus?LAB: LIPID PANEL, STANDARD (7600)* Value Reference Range T RIGLYCERIDES 93 <150 - mg/dL * C HOLESTEROL, TOTAL 141 <200 - mg/dL * H DL CHOLESTEROL 62 > OR = 50 - mg/dL * L DL-CHOLESTEROL 61 - mg/dL (calc) * C HOL/HDLC RATIO 2.3 <5.0 - (calc) * N ON HDL CHOLESTEROL 79 <130 - mg/dL (calc) * ChrisNydiata 10/20/2024 1 1:30:16 AM EDT > pt notifiedThis lab was reviewed by Manoj Perez on 10/20/2024 at 11:30 AM EDT ?LAB: COMPREHENSIVE METABOLIC PANEL (35765)* Value Reference Range G LUCOSE 78 65-99 - mg/dL * U MARGI NITROGEN (BUN) 12 7-25 - mg/dL * C REATININE 0.80 0.50-1.03 - mg/dL * B UN/CREATININE RATIO SEE NOTE: 6 - (calc) * S ODIUM 138 135-146 - mmol/L * P OTASSIUM 4.1 3.5-5.3 - mmol/L * C HLORIDE 105 98-110 - mmol/L * C ARBON DIOXIDE 23 20-32 - mmol/L * C ALCIUM 8.9 8.6-10.4 - mg/dL * P ROTEIN, TOTAL 7.3 6.1-8.1 - g/dL * A LBUMIN 3.9 3.6-5.1 - g/dL * G LOBULIN 3.4 1.9-3.7 - g/dL (calc ) * A LBUMIN/GLOBULIN RATIO 1.1 1.0-2.5 - (calc) * B ILIRUBIN, TOTAL 0.4 0.2-1.2 - mg/dL * A LKALINE PHOSPHATASE 66 37-153 - U/L * A ST 18 10-35 - U/L * A LT 11 6-29 - U/L * E GFR 85 > OR = 60 - mL/min/1 .73m2 * Chris Manoj R 10/20/2024 1 1:30:16 AM EDT > pt notifiedThis lab was reviewed by Manoj Perez on 10/20/2024 at 11:30 AM EDT ?LAB: HEMOGLOBIN A1c (496)* Value Reference Range H EMOGLOBIN A1c 5.2 <5.7 - % * Nydia Perezta R 10/20/2024 1 1:30:16 AM EDT > pt notifiedThis lab was reviewed by Manoj Perez on 10/20/2024 at 11:30 AM EDT Notes: - Check A1C??4.?Seasonal allergies? Notes: - Refill singular and Xyzal for allergies ??5.?Screening mammogram, encounter for?Imaging: SCREEN MAMMO W CAD BILAT* This DI was reviewed by Pedro Cast on 10/20/2024 at 09:56 AM EDT * 6.?Routine medical exam? Notes: - No memory concerns, was able to recall 3 words - No recent falls, feels safe at home - Vaccines UTD, will do pneumonia shot after age 60 - Gets [facility]a scans through [facility] - Colonscopy scheduled this fall with history of partial colectomy - Due for mammogram, referral placed ?? * Procedure Codes: G 0439 ANNUAL WELLNESS VST; PPS SUBSQT VST, 1170F FUNCTIONAL STATUS ASSESSMENT, G9899 Screening diagnostic,film,digital results documented and reviewed, 3017F COLORECTAL CA SCREEN DOC REV, G8420 BMI documented as normal, no follow up required., G8510 NEGATIVE SCREENING F/U NOT REQUIRED, G9902 Pt scrn tbco and id as user, G9906 Patient identified as tobacco user received tobacco cessation intervention., G9744 PATIENT NOT ELIG D/T ACTIVE DX HT[place], [address] BEHAV CHNG SMOKING 3-10 MIN * Follow Up: 3 Months,prn * * Sign off status: Completed true * Provider: Seema Cast MD Date: 0 10/16/2024 Generated for Printi ng/Fajerseyg/eTransmitting on: 0 12/04/2024 09:02 AM EDT History and Physical Notes * HPI (History of Present Illness) Category Sub-Category Detail Notes Category Not es gen Eunice Juarez is a 59 yo F here for medicare wellness. Today she asks about taking over her allergy medicine prescriptions since she is no longer seeing an food service ambassador. She was started on Wellbutrin at last visit for smoking cessation. She has not noticed a change in her cravings but has decreased smoking from about 1 pack to 1/2 pack per day. She has tried Chantix in the past and was able to quit for 9 months. She is willing to try again if insurance will cover it. She is due for mammogram but otherwise up to date with [facility]. Examination Category Sub-Category Detail Notes Category Not es General Examination Heart: Regular Rate and Rhythm, no murmur, rubs or gallops Lungs: LCTAB, No wheezes, c rackles or rhonchi, Good air movement, General Pleasant and Coopera tive, NAD on RA,
--- OUTSIDE RECORDS SUMMARY | 2024-11-11 09:45 | XMS_ITS | Encounter Summary ---
Author Organization [facility] Address [address] [place] [address] Care Team Providers Care Manager Valuation Name Role Phone Anatoliy Pulliam MD Primary Care Provider [phone] Reason for Referral * Diagnostic Imaging (Routine) - Authorized Specialty Diagnoses / Procedures Referred By Contac t Referred To Contact Radiology Diagnoses Age related osteoporosis, unspecified pathological fracture presence Procedures DEXA Bone Density Axial Faustina Obregon APRN [address] [address] Phone: tel: fax: [facility] DEXA [address] [address] Phone: tel: fax: Referral ID Status Reason Start Date Expiration Date V isits Requested Visits Authorized [id number] Authorized 11/11/2024 02/10/2026 1 1 Reason for Visit * Reason Comments Systemic lupus erythematosus, unspecifie d SLE type, unspeci Encounter Details Date Type Department Care Team (Late st Contact Info) Description 11/11/2024 9:45 AM EDT Office Visit [facility] [address] [place] [address] Faustina Obregon APRN [address] [address] Systemic lupus erythematosus, unspecified SLE type, unspecified organ involvement status (Primary Dx); High risk medication use; Fibromyalgia; Generalized osteoarthrosis, involving multiple sites; Age related osteoporosis, unspecified pathological fracture presence Social History Tobacco Use Types Packs/Day Years Used Date Smoking Tobacco: Every Day Cigarettes 0.5 43.7 Started: 1981 Smokeless Tobacco: Never Tobacco Cessation:Ready to Q uit: Not Asked; Counseling Given: Not Answered Alcohol Use Standard Drinks/Week Comments Not Currently 0 (1 standard drink = 0.6 oz pur e alcohol) Comments Unknown Sex and Gender Information Value Date Recorded Sex Assigned at Not on file Legal Sex Female 10:05 AM EDT Gender Identity Not on file Sexual Orientation Not on file documented as of this encounter Last Filed Vital Signs Vital Sign Reading Time Taken Comments Blood Pressure 110/68 11/11/2024 10:02 AM EDT Pulse 83 11/11/2024 10:02 AM EDT Temperature 36.9 C (98.5 F) 11/11/2024 10:02 AM EDT Respiratory Rate 12 11/11/2024 10:02 AM EDT Oxygen Saturation - - Inhaled Oxygen Concentration - - Weight 68.5 kg (151 lb 1.6 oz) 11/11/2024 10:02 AM EDT Height 162.6 cm (5' 4.02 ) 11/11/2024 10:02 AM E DT Body Mass Index 25.92 11/11/2024 10:02 AM EDT documented in this encounter Progress Notes * Faustina Obregon APRN - 11/11/2024 9:45 AM EDT Images from the original note were not included. Office Follow Up Date: 11/11/2024 Patient Name: Natividad Juarez Date of : 1965 Referring Physician: No ref. provider found Chief Complaint: Chief Complaint Patient presents with Systemic lupus erythematosus, unspecified SLE type, unspeci History of Present Illness: Natividad Juarez is a 59 y.o. female who is here today for follow up on SLE, osteoarthritis and fibromyalgia Today patient reports feeling the same with pain severity 7/10 and 2 hours of freelance designer stiffness She has dry eyes and dry mouth She denies any nasal or oral ulcers, pleurisy, chest pain or shortness of breath. No rashes reported. She continues on Plaquenil and methotrexate. These are very helpful. No side effects. No swollen joints. No current rash. Eye exam stable on Plaquenil She has fibromyalgia and osteoarthritis. Gabapentin, diclofenac, and flexeril are helpful for chronic pain. Her last DEXA was 04/2022 with ACL which showed improvement in lumbar spine and stable/slightly worsening osteopenia in left hip She stopped Fosamax after 5 years of therapy- She is due for another DEXA. Her September 2018 from brain tumor. Her mother 2019 with lung dz/SLE Subjective Review of Systems: Review of Systems Constitutional: Positive for diaphoresis and fatigue. HENT: Positive for sinus pressure. Dry mouth Eyes: Positive for pain and itching. Endocrine: Positive for polydipsia. Musculoskeletal: Positive for arthralgias, back pain, myalgias and neck stiffness. Skin: Positive for color change, skin lesions and bruise. Hair loss Allergic/Immunologic: Positive for immunocompromised state. Hematological: Bruises/bleeds easily. Past Medical History: Past Medical History: Diagnosis Date CTS (carpal tunnel syndrome) DDD (degenerative disc disease), lumbar Depression GERD (gastroesophageal reflux disease) Hematuria Medial epicondylitis, right elbow Mouth sores Osteoarthritis of both knees Osteopenia Raynaud's phenomenon RLS (restless legs syndrome) [place] Systemic lupus erythematosus Trochanteric bursitis Past Surgical History: Past Surgical History: Procedure Laterality Date MOUTH SURGERY TEETH REMOVAL Family History: Family History Problem Relation Age of Onset Arthritis Mother Heart disease Mother CARDIAC ARREST Hypertension Mother Hypertension Father Diabetes Maternal Grandmother Arthritis Maternal Grandmother Hypertension Maternal Grandmother Hypertension Maternal Grandfather Arthritis Paternal Grandmother Breast cancer Maternal Aunt Stroke Maternal Aunt Social History: Social History Socioeconomic History Marital status: Tobacco Use Smoking status: Every Day Current packs/day: 0.50 Average packs/day: 0.5 packs/day for 43.6 years (21.8 ttl pk-yrs) Types: Cigarettes Start date: 1981 Smokeless tobacco: Never Vaping Use Vaping status: Never Used Substance and Sexual Activity Alcohol use: Not Currently Drug use: Never Sexual activity: Defer Medications: Current Outpatient Medications: acetaminophen-codeine (TYLENOL with CODEINE #3) 300-30 MG per tablet, Take by mouth Every 6 (Six) Hours As Needed for Moderate Pain., Disp: , Rfl: albuterol sulfate HFA (Ventolin HFA) 108 (90 Base) MCG/ACT inhaler, Inhale 2 puffs Every 4 (Four) Hours As Needed for Wheezing., Disp: , Rfl: Azelastine HCl 137 MCG/SPRAY solution, , Disp: , Rfl: buPROPion XL (WELLBUTRIN XL) 150 MG 24 hr tablet, , Disp: , Rfl: cyclobenzaprine (FLEXERIL) 5 MG tablet, Take 1 tablet by mouth At Night As Needed for Muscle Spasms., Disp: 180 tablet, Rfl: 1 diclofenac (VOLTAREN) 75 MG EC tablet, Take 1 tablet by mouth 2 (Two) Times a Day As Needed (JOINT AIN)., Disp: 180 tablet, Rfl: 1 dicyclomine (BENTYL) 10 MG capsule, , Disp: , Rfl: folic acid (FOLVITE) 1 MG tablet, Take 1 tablet by mouth Daily., Disp: 90 tablet, Rfl: 3 gabapentin (NEURONTIN) 300 MG capsule, TAKE ONE TO TWO CAPSULES BY MOUTH AT BEDTIME NEEDED, Disp: 180 capsule, Rfl: 1 hydroxychloroquine (PLAQUENIL) 200 MG tablet, Take 1 tablet by mouth 2 (Two) Times a Day., Disp: 180 tablet, Rfl: 0 levocetirizine (XYZAL) 5 MG tablet, , Disp: , Rfl: methotrexate 2.5 MG tablet, Take 6 tablets by mouth 1 (One) Time Per Week., Disp: 72 tablet, Rfl: 0 montelukast (SINGULAIR) 10 MG tablet, Daily., Disp: , Rfl: omeprazole (priLOSEC) 40 MG capsule, Take 1 capsule by mouth Daily., Disp: 180 capsule, Rfl: 0 tiotropium bromide-olodaterol (Stiolto Respimat) 2.5-2.5 MCG/ACT aerosol solution inhaler, 2 puff(s) inhaled every 24 hours, Disp: , Rfl: varenicline (CHANTIX) 1 MG tablet, , Disp: , Rfl: Allergies: Allergies Allergen Reactions Sulfa Antibiotics Unknown - Low Severity Objective Vital Signs: Vitals: 11/11/24 1002 BP: 110/68 BP Location: Left arm Patient Position: Sitting Cuff Size: Adult Pulse: 83 Resp: 12 Temp: 98.5 ??F (36.9 ??C) TempSrc: Infrared Weight: 68.5 kg (151 lb 1.6 oz) Height: 162.6 cm (64.02 ) PainSc: 4 PainLoc: Back Comment: Lower Back, Both Hands Body mass index is 25.92 kg/m??. Physical Exam: Physical Exam MUSCULOSKELETAL: No peripheral synovitis. No rheumatoid nodules or tophi. Scattered Heberden Kamala's nodes hands Right knee mild crepitus Complete joint exam was performed including the MCPs, PIPs, DIPs of the hands, wrists, elbows, shoulders, hips, knees and ankles. No soft tissue swelling or tenderness is present except as above. General: The patient is well-developed and well nourished. Cooperative, alert and oriented. Affect is normal. Hydration appears normal. HEENT: Normocephalic and atraumatic. Lids and conjunctiva are normal. Pupils are equal and sclera are clear. Oropharynx is clear NECK neck is supple without adenopathy, masses or thyromegaly. CARDIOVASCULAR: Regular rate and rhythm. No murmurs, rubs or gallops LUNGS: Effort is normal. Lungs are clear bilateral ABDOMEN: Not examined EXTREMITIES: Peripheral pulses are intact. No clubbing. SKIN: No rashes. No subcutaneous nodules. No digital ulcers. No sclerodactyly. NEUROLOGIC: Gait is normal. Strength testing is normal. No focal neurologic deficits Results Review: Labs: No results found for: GLUCOSE , BUN , CREATININE , EGFRRESULT , EGFR , BCR , K , CO2 , CALCIUM , PROTENTOTREF , ALBUMIN , BILITOT , AST , ALT No results found for: WBC , HGB , HCT , MCV , PLT No results found for: SEDRATE No results found for: CRP No results found for: QUANTIFERO , QUANTITB1 , QUANTITB2 , QUANTIFERN , QUANTIFERM , QUANTITBGLDP No results found for: RF No results found for: HEPBSAG , HEPAIGM , HEPBIGMCORE , HEPCVIRUSABY Procedures Assessment / Plan 1. Systemic lupus erythematosus, unspecified SLE type, unspecified organ involvement status 2. High risk medication use 3. Fibromyalgia 4. Generalized osteoarthrosis, involving multiple sites 5. Age related osteoporosis, unspecified pathological fracture presence -Systemic lupus erythematosus mother Janny Winkler 2019 with lung dz/SLE; 2020 brain tumor +skin bx arm in 2006 c/w lupus +NICO 1:320, +anti-Tejeda; inflammatory arthritis; Raynaud's, photosensitivity plaquenil 2006 ([facility] Dr. Smiley) mtx very helpful -- stopped 2016 with noncompliance labs; restart 1.18. *Gabapentin, cyclobenzaprine Low disease activity from SLE. No synovitis. No active rashes. Improved on Plaquenil and methotrexate. Continue as ordered. Continue diclofenac PRN Continue yearly Plaquenil eye exam for monitoring of toxicity. Labs reviewed 07/17/24- She is due for labs - standing order provided and again stressed importance of timely labs. She prefers to do labs at outside facility Follow up in 4 months -High risk medication use MTX and HCQ Well-tolerated and effective Risk include but are not limited to severe liver damage so can be fatal, the possible need for liver biopsy, bone marrow suppression that can lead to dangerously low blood counts, GI side effects including mouth sores and diarrhea, fatigue, and the rare risk of severe pulmonary complications. There should be no alcohol consumed with methotrexate. Methotrexate can cause severe abnormalities with his mother father is taking the medication and thus must be avoided if is a possibility. All medication is to be taken 1 day a week only. The need for Q 8-12-week labs and the need for folic acid supplement were discussed. We discussed possible side effects of hydroxychloroquine including headache, nausea, diarrhea, rareretinal pigmentation, rare neuromuscular toxicity. Recommend eye exams every 6 to 12 months to monitor for retinal toxicity. -Fibromyalgia Current: gabapentin, Flexeril intolerant cymbalta Recommend regular exercise. She is working in her garden, she does not walk much, she reports that she feels she moves quite often however. Continue diclofenac PRN Continue cyclobenzaprine and gabapentin at night which she does find helpful She was intolerant of Cymbalta in the past. -Generalized osteoarthrosis, involving multiple sites X-rays knees with moderate to severe degenerative changes 2014, DDD cervical synvisc one 8..15 bilateral Knees better after Synvisc one injections 2014 Topical diclofenac can be used as needed for osteoarthritis She has declined repeat injections Stable today -Osteoporosis Fosamax started 01/2018-02/15 (5 years therapy) DEXA [facility] 04/28/20 right hip -2.7, left hip -2.0, lumbar spine -1.6 DXA ACL 04/27/22 left total hip -2.2, left femoral neck -2.1, lumbar spine -1.7. Stopped Fosamax 02/15 (after 5 years of therapy) Continue weight bearing exercise Calcium and vitamin D supplementation discussed DEXA ordered -Pain management Gabapentin Overall helpful for for her chronic pain from fibromyalgia and well-tolerated Refills provided ROSENDO reviewed and appropriate UDS intermittently for monitoring 07/17/24 Risks of sedation dizziness falls overdose discussed. Pain management agreement updated 11/11/24 1. Systemic lupus erythematosus, unspecified SLE type, unspecified organ involvement status 2. High risk medication use 3. Fibromyalgia 4. Generalized osteoarthrosis, involving multiple sites 5. Age related osteoporosis, unspecified pathological fracture presence Orders Placed This Encounter Procedures DEXA Bone Density Axial Comprehensive Metabolic Panel C-reactive Protein Sedimentation Rate CBC (No Diff) New Medications Ordered This Visit Medications methotrexate 2.5 MG tablet Sig: Take 6 tablets by mouth 1 (One) Time Per Week. Dispense: 72 tablet Refill: 0 folic acid (FOLVITE) 1 MG tablet Sig: Take 1 tablet by mouth Daily. Dispense: 90 tablet Refill: 3 cyclobenzaprine (FLEXERIL) 5 MG tablet Sig: Take 1 tablet by mouth At Night As Needed for Muscle Spasms. Dispense: 180 tablet Refill: 1 hydroxychloroquine (PLAQUENIL) 200 MG tablet Sig: Take 1 tablet by mouth 2 (Two) Times a Day. Dispense: 180 tablet Refill: 0 omeprazole (priLOSEC) 40 MG capsule Sig: Take 1 capsule by mouth Daily. Dispense: 180 capsule Refill: 0 gabapentin (NEURONTIN) 300 MG capsule Sig: TAKE ONE TO TWO CAPSULES BY MOUTH AT BEDTIME NEEDED Dispense: 180 capsule Refill: 1 Follow Up: Return in about 4 months (around 03/13/2025). I attest that the documentation was copied from a previous note but is still current and accurate. Faustina Obregon APRN [facility] Rheumatology [place] documented in this encounter Plan of Treatment Upcoming Encounters Date Type Department Care Team (Late st Contact Info) Description 03/13/2025 8:00 AM EST Appointment [facility] DEXA [address] [address] 03/13/2025 8:30 AM EST Office Visit [facility] [address] [address] Faustina Obregon APRN [address] [address] Scheduled Orders Name Type Priority Associated Diagnoses Orde r Schedule Comprehensive Metabolic Panel Lab Routine Systemic lupus erythematosus, unspecified SLE type, unspecified organ involvement status Every 8 Weeks for 6 Occurrences starting 11/11/2024 until 02/11/2026 C-reactive Protein Lab Routine Systemic lupus erythematosus, unspecified SLE type, unspecified organ involvement status Every 8 Weeks for 6 Occurrences starting 11/11/2024 until 02/11/2026 Sedimentation Rate Lab Routine Systemic lupus erythematosus, unspecified SLE type, unspecified organ involvement status Every 8 Weeks for 6 Occurrences starting 11/11/2024 until 02/11/2026 CBC (No Diff) Lab Routine Systemic lupus erythematosus, unspecified SLE type, unspecified organ involvement status Every 8 Weeks for 6 Occurrences starting 11/11/2024 until 02/11/2026 DEXA Bone Density Axial Imaging Routine Age related osteoporosis, unspecified pathological fracture presence Expected: 11/16/2024, Expires: 11/11/2025 documented as of this encounter Visit Diagnoses Diagnosis Systemic lupus erythematosus, unspecified SLE type, unspecified organ involvement status- Primary High risk medication use Fibromyalgia Unspecified myalgia and myositis Generalized osteoarthrosis, involving multiple sites Age related osteoporosis, unspecified pathological fracture presence documented in this encounter Care Teams Manager Valuation Relationship Specialty Start Date End Date Anatoliy Pulliam MD [address] [facility] [address] [place] [id number] PCP - General Adolescent Medicine 08/30/23 documented as of this encounter
--- OUTSIDE RECORDS SUMMARY | 2024-12-04 09:02 | XMS_ITS | Encounter Summary ---
Author Organization [facility] ([place], [place], [place], [place]) Address [address] [place] [address] Care Team Providers Care Refrigerating Engineer Head Name Role Phone Unavailable Primary Care Provider Unavailabl e Encounter Details Date Type Department Care Team (Late st Contact Info) Description 06/13/2018 Transcribed Document [facility] [place] [address] ProviderMarcela MD [address] [place] [address] Social History Tobacco Use Types Packs/Day Years Used Date Smoking Tobacco: Never Assessed Comments Unknown Sex and Gender Information Value Date Recorded Sex Assigned at Female 09/21/2021 11:58 AM CDT Legal Sex Female 6:30 PM CDT Gender Identity Female 09/21/2021 11:58 AM CDT Sexual Orientation Not on file documented as of this encounter Miscellaneous Notes * Cerner Conversion Note - Marcela Luciano MD - 06/13/2018 12:21 PM CDT Patient Education Materials Follows: Open Colectomy, Care After This sheet gives you information about how to care for yourself after your procedure. Your health care provider may also give you more specific instructions. If you have problems or questions, contact your health care provider. What can I expect after the procedure? After the procedure, it is common to have: ??? Pain in your abdomen, especially along your incision. ??? Tiredness. Your energy level will return to normal over the next several weeks. ??? Constipation. ??? Nausea. ??? Difficulty urinating. Follow these instructions at home: Activity ??? You may be able to return to most of your normal activities within 1?2 weeks, such as working, walking up stairs, and sexual activity. ??? Avoid activities that require a lot of energy for 4?6 weeks after surgery, such as running, climbing, and lifting heavy objects. Ask your health care provider what activities are safe for you. ??? Take rest breaks during the day as needed. ??? Do notdrive for 1?2 weeks or until your health care provider says that it is safe. ??? Do notdrive or use heavy machinery while taking prescription pain medicines. ??? Do notlift anything that is heavier than 10 lb (4.3 kg) until your health care provider says that it is safe. Incision care ??? Follow instructions from your health care provider about how to take care of your incision. Make sure you: ? Wash your hands with soap and water before you change your bandage (dressing). If soap and water are not available, use hand ham boner. ? Change your dressing as told by your health care provider. ? Leave stitches (sutures) or lauryn in place. These skin closures may need to stay in place for 2 weeks or longer. ??? Avoid wearing tight clothing around your incision. ??? Protect your incision area from the sun. ??? Check your incision area every day for signs of infection. Check for: ? More redness, swelling, or pain. ? More fluid or blood. ? Warmth. ? Pus or a bad smell. General instructions ??? Do nottake baths, swim, or use a hot tub until your health care provider approves. Ask your health care provider when you may shower. ??? Take aoya-pwl-qzyxfro and prescription medicines, including stool softeners, only as told by your health care provider. ??? Eat a low-fat and low-fiber diet for the first 4 weeks after surgery. ??? Keep all follow-up visits as told by your health care provider. This is important. Contact a health care provider if: ??? You have more redness, swelling, or pain around your incision. ??? You have more fluid or blood coming from your incision. ??? Your incision feels warm to the touch. ??? You have pus or a bad smell coming from your incision. ??? You have a fever or chills. ??? You do not have a bowel movement 2?3 days after surgery. ??? You cannot eat or drink for 24 hours or more. ??? You have persistent nausea and vomiting. ??? You have abdominal pain that gets worse and does not get better with medicine. Get help right away if: ??? You have chest pain. ??? You have shortness of breath. ??? You have pain or swelling in your legs. ??? Your incision breaks open after your sutures or lauryn have been removed. ??? You have bleeding from the rectum. This information is not intended to replace advice given to you by your health care provider. Make sure you discuss any questions you have with your health care provider. Document Released: 10/03/2011 Document Revised: 12/11/2016 Document Reviewed: 12/11/2016 Elsevier Interactive Patient Education ? 2017 [employer] documented in this encounter Plan of Treatment Not on file documented as of this encounter Visit Diagnoses Not on filedocumented in this encounter
--- OUTSIDE RECORDS SUMMARY | 2024-12-04 09:02 | XMS_ITS | Encounter Summary ---
Author Organization [employer] ([place], [place], [place], [place]) Address [address] [place] [address] Care Team Providers Care Horseshoer Name Role Phone Unavailable Primary Care Provider Unavailabl e Encounter Details Date Type Department Care Team (Late st Contact Info) Description 06/13/2018 Transcribed Document [facility] [place] Family Medicine [address] [place] [address] ProviderMarcela MD [address] [place] [address] Social History Tobacco Use Types Packs/Day Years Used Date Smoking Tobacco: Never Assessed Comments Unknown Sex and Gender Information Value Date Recorded Sex Assigned at Female 09/21/2021 11:58 AM CDT Legal Sex Female 6:30 PM CDT Gender Identity Female 09/21/2021 11:58 AM CDT Sexual Orientation Not on file documented as of this encounter Miscellaneous Notes * Cerner Conversion Note - Historical ProviderMD - 06/13/2018 2:00 AM CDT Saute Chef Details Entered On: 06/13/2018 0:21 EDT Performed On: 06/13/2018 2:00 EDT by Stephanie Pritchett Order Details Transport Mode Order Detail : Wheelchair Isolation Precautions Order Detail : Standard Precautions Order Detail : 0 IV Order Detail : 1 Oxygen Order Detail : 1 Nurse Collect Order Detail : 0 Lift/Transfer : Minimal Central Line Order Detail : No Room Service : Appropriate Arterial Line : No Stephanie Pritchett - 06/13/2018 0:21 EDT Electronically signed by Myrna Fraga Conversion Account Service Representative Cerjordan at 07/09/2022 8:31 AM CDT documented in this encounter Plan of Treatment Not on file documented as of this encounter Visit Diagnoses Not on filedocumented in this encounter
--- OUTSIDE RECORDS SUMMARY | 2024-12-04 09:02 | XMS_ITS | Encounter Summary ---
Author Organization [employer] ([place], [place], [place], [place]) Address [address] [place] [address] Care Team Providers Care Back Roller Name Role Phone Unavailable Primary Care Provider Unavailabl e Encounter Details Date Type Department Care Team (Late st Contact Info) Description 06/12/2018 Transcribed Document [facility] [place] Family Medicine [address] [place] [address] ProviderMarcela MD [address] [place] [address] Social History Tobacco Use Types Packs/Day Years Used Date Smoking Tobacco: Never Assessed Comments Unknown Sex and Gender Information Value Date Recorded Sex Assigned at Female 09/21/2021 11:58 AM CDT Legal Sex Female 6:30 PM CDT Gender Identity Female 09/21/2021 11:58 AM CDT Sexual Orientation Not on file documented as of this encounter Miscellaneous Notes * Cerner Conversion Note - Marcela ProviderMD - 06/12/2018 7:49 AM CDT Procedural Documentation Entered On: 06/12/2018 7:55 EDT Performed On: 06/12/2018 7:49 EDT by NENA SANFORD RN Procedure Documentation Procedure to be Performed : bilateral TAPS block Time Out Pause Time : 06/12/2018 9:40 EDT All Activity Suspended : Yes Team Verbally Confirms Information : Correct patient identity, Correct side and site are marked, Consent form is present and accurate, Correct patient position, Confirm the skin prep has dried, Performed in location of procedure after prepped/draped Procedure Performed : biateral TAPS blocks Proper Use of Sterile Apparel per Policy : Yes Procedure Case Attendee : DINORA YIP MD Procedure Case Attendee Role : Anesthesiologist Procedure Case Attendee Role 2 : painter ski edge Case Attendee 2 : NENA SANFORD RN Procedure Case Attendee Role 3 : painter ski edge Case Attendee 3 : MARCIO JOHNSON RN GERSTLE, MARY K, RN - 06/12/2018 7:49 EDT Postprocedure Documentation Current Time : 7:49 EST NENA SANFORD RN - 06/12/2018 7:49 EDT Cindy Level I Post Anesthesia Assessment Cindy I Activity Status : Moves 4 extremities voluntarily or on command Cindy l Respiratory Component : Able to deep breathe and cough freely Cindy I Circulation Component : BP 20-49% of preanesthetic level Cindy I Consciousness : Arouses on calling Cindy l Oxygen Saturation : Needs oxygen to maintain > 92% Cindy l Score : 7 NENA SANFORD RN - 06/12/2018 7:49 EDT Vital Measurements Pulse Source : Radial, Left Peripheral Pulse Rate : 81 bpm Pulse Rhythm : Regular Respiratory Rate : 18 Breaths/Min Blood Pressure Location : Arm, right upper Blood Pressure Source : Non-Invasive BP Device Blood Pressure Position : Side, Right Systolic Blood Pressure : 108 mmHg Diastolic Blood Pressure : 79 mmHg Pulse Method : Pulse Oximetry NENA SANFORD RN - 06/12/2018 7:55 EDT Oxygen Therapy Oxygen Titrated : No Oxygen Therapy Mode : Nasal cannula Oxygen Flow Rate : 2 Liter/Min Pulse Oximeter Probe Site : Hand, left O2 Saturation Monitoring Frequency : Continuous Oxygen Saturation : 97 % NENA SANFORD RN - 06/12/2018 7:55 EDT documented in this encounter Plan of Treatment Not on file documented as of this encounter Visit Diagnoses Not on filedocumented in this encounter
--- OUTSIDE RECORDS SUMMARY | 2024-12-04 09:02 | XMS_ITS | Clinical Summary ---
Author Organization [facility] Address [address] [place] [address] Care Team Providers Care Chemical Analytical Sampler Name Role Phone Anatoliy Pulliam MD Primary Care Provider [phone] Allergies Active Allergy Reactions Criticality Noted Date Comments Sulfa Antibiotics Unknown - Low Severity Low 2023 Medications acetaminophen-co deine (TYLENOL with CODEINE #3) 300-30 MG per tablet Take by mouth Every 6 (Six) Hours As Needed for Moderate Pain. Active albuterol sulfate HFA (Ventolin HFA) 108 (90 Base) MCG/ACT inhaler Inhale 2 puffs Every 4 (Four) Hours As Needed for Wheezing. Active Azelastine HCl 137 MCG/SPRAY solution 4 Active dicyclomine (BENTYL) 10 MG capsule 4 Active levocetirizine (XYZAL) 5 MG tablet 4 Active montelukast (SINGULAIR) 10 MG tablet Daily. Active tiotropium bromide-olodater ol (Stiolto Respimat) 2.5-2.5 MCG/ACT aerosol solution inhaler 2 puff(s) inhaled every 24 hours Active diclofenac (VOLTAREN) 75 MG EC tabletIndication s:Systemic lupus erythematosus, unspecified SLE type, unspecified organ involvement status,High risk medication use Take 1 tablet by mouth 2 (Two) Times a Day As Needed (JOINT AIN). 180 tablet 1 4 Active buPROPion XL (WELLBUTRIN XL) 150 MG 24 hr tablet 5 Active varenicline (CHANTIX) 1 MG tablet 5 Active methotrexate 2.5 MG tabletIndication s:Systemic lupus erythematosus, unspecified SLE type, unspecified organ involvement status,High risk medication use Take 6 tablets by mouth 1 (One) Time Per Week. 72 tablet 5 Active folic acid (FOLVITE) 1 MG tabletIndication s:Systemic lupus erythematosus, unspecified SLE type, unspecified organ involvement status,High risk medication use Take 1 tablet by mouth Daily. 90 tablet 3 5 Active cyclobenzaprine (FLEXERIL) 5 MG tabletIndication s:Systemic lupus erythematosus, unspecified SLE type, unspecified organ involvement status,High risk medication use Take 1 tablet by mouth At Night As Needed for Muscle Spasms. 180 tablet 1 5 Active hydroxychloroqui ne (PLAQUENIL) 200 MG tabletIndication s:Systemic lupus erythematosus, unspecified SLE type, unspecified organ involvement status,High risk medication use Take 1 tablet by mouth 2 (Two) Times a Day. 180 tablet 5 Active gabapentin (NEURONTIN) 300 MG capsuleIndicatio ns:Systemic lupus erythematosus, unspecified SLE type, unspecified organ involvement status,High risk medication use TAKE ONE TO TWO CAPSULES BY MOUTH AT BEDTIME NEEDED 180 capsule 1 5 Active omeprazole (priLOSEC) 40 MG capsule Take 1 capsule by mouth 2 (Two) Times a Day. 180 capsule 5 Active gabapentin (NEURONTIN) 300 MG capsuleIndicatio ns:Systemic lupus erythematosus, unspecified SLE type, unspecified organ involvement status,High risk medication use TAKE ONE TO TWO CAPSULES BY MOUTH AT BEDTIME NEEDED 180 capsule 1 5 11/12/19 25 Discontinu ed(Reorder ) omeprazole (priLOSEC) 40 MG capsule TAKE 1 CAPSULE BY MOUTH 2 TIMES A DAY BEFORE A MEAL 180 capsule 5 11/12/19 25 Discontinu ed(Reorder ) folic acid (FOLVITE) 1 MG tabletIndication s:Systemic lupus erythematosus, unspecified SLE type, unspecified organ involvement status,High risk medication use TAKE 1 TABLET BY MOUTH DAILY 90 tablet 3 5 11/12/19 25 Discontinu ed(Reorder ) methotrexate 2.5 MG tabletIndication s:Systemic lupus erythematosus, unspecified SLE type, unspecified organ involvement status,High risk medication use Take 6 tablets by mouth 1 (One) Time Per Week. 72 tablet 5 11/12/19 25 Discontinu ed(Reorder ) cyclobenzaprine (FLEXERIL) 5 MG tabletIndication s:Systemic lupus erythematosus, unspecified SLE type, unspecified organ involvement status,High risk medication use TAKE ONE TO TWO TABLETS BY MOUTH AT NIGHT NEEDED FOR MUSCLE SPASMS. 180 tablet 1 5 11/12/19 25 Discontinu ed(Reorder ) hydroxychloroqui ne (PLAQUENIL) 200 MG tabletIndication s:Systemic lupus erythematosus, unspecified SLE type, unspecified organ involvement status,High risk medication use Take 1 tablet by mouth 2 (Two) Times a Day. 180 tablet 5 11/12/19 25 Discontinu ed(Reorder ) omeprazole (priLOSEC) 40 MG capsule Take 1 capsule by mouth Daily. 180 capsule 5 11/14/19 25 Discontinu ed(Reorder ) Active Problems Problem Noted Date Diagnosed Date High risk medication use 08/30/2023 Assessment & Plan (08/30/2023 8:34 AM EDT): MTX and HCQ Well-tolerated and effective Risk [...] effects of hydroxychloroquine including headache, nausea, diarrhea, rare retinal pigmentation, rare neuromuscular toxicity. Recommend eye exams every 6 to 12 months to monitor for retinal toxicity. Fibromyalgia 08/30/2023 Assessment & Plan (08/30/2023 8:34 AM EDT): Current: gabapentin, Flexeril intolerant cymbalta Recommend regular exercise. Continue diclofenac PRN Continue cyclobenzaprine and gabapentin at night which she does find helpful She was intolerant of Cymbalta Generalized osteoarthrosis, involving multiple s ites 08/30/2023 Assessment & Plan (08/30/2023 8:34 AM EDT): X-rays knees with moderate to severe degenerative changes 2014, DDD cervical synvisc one 8.19.15 bilateral Knees better after Synvisc one injections 2014 Topical diclofenac can be used as needed for osteoarthritis She declined repeat injections Age related osteoporosis 08/30/2023 Assessment & Plan (08/30/2023 12:35 PM EDT): Fosamax started 01/2018-02/15 (5 years therapy) DEXA [facility] 04/28/20 right hip -2.7, left hip -2.0, lumbar spine -1.6 DXA [facility] 04/27/22 left total hip -2.2, left femoral neck -2.1, lumbar spine -1.7. Stopped Fosamax 02/15 (after 5 years of therapy) Continue weight bearing exercise Calcium and vitamin D supplementation discussed Repeat DEXA 04/2024 at [facility] Pain management 08/30/2023 Assessment & Plan (08/30/2023 12:35 PM EDT): Gabapentin Overall helpful for for her chronic pain from fibromyalgia and well-tolerated Refills provided ROSENDO reviewed and appropriate UDS intermittently for monitoring Risks of sedation dizziness falls overdose discussed. Pain management agreement updated 08/30/2023 Systemic lupus erythematosus 08/29/2023 Assessment & Plan (08/30/2023 12:35 PM EDT): mother Janny Winkler 2019 with lung dz/SLE; 2020 brain tumor +skin bx arm in 2006 c/w lupus +NICO 1:320, +anti-Tejeda; inflammatory arthritis; Raynaud's, photosensitivity plaquenil 2006 ([facility], [facility]IC[facility] Smiley) mtx very helpful -- stopped 2016 with noncompliance labs; restart 1.18. *Gabapentin, cyclobenzaprine Low disease activity from SLE. No synovitis. No active rashes. Improved on Plaquenil and methotrexate which she will continue. Continue diclofenac PRN Continue yearly Plaquenil eye exam for monitoring of toxicity. She is slightly overdue for labs. We discussed need of regular lab testing at least every 3 months on her medications. Continue labs every 8-12 weeks- new order provided Reviewed labs from 03/2023 which are stable. Follow up in 3 months Encounters Date Type Department Care Team Description 11/27/2024 Refill [facility] [address] [place] [phone] Karl Yuan MD 11/13/2024 Refill [facility] [address] [place] [phone] Faustina Obregon APRN 11/11/2024 9:45 AM EDT Office Visit [facility] [address] [place] [phone] Faustina Obregon APRN Systemic lupus erythematosus, unspecified SLE type, unspecified organ involvement status (Primary Dx); High risk medication use; Fibromyalgia; Generalized osteoarthrosis, involving multiple sites; Age related osteoporosis, unspecified pathological fracture presence 11/11/2024 Travel 10/27/2024 Telephone [facility] [address] [place] [phone] Karl Yuan MD 10/25/2024 Refill [facility] [address] [place] [phone] Karl Yuan MD Systemic lupus erythematosus, unspecified SLE type, unspecified organ involvement status; High risk medication use 10/13/2024 Telephone [facility] [address] [place] [phone] Karl Yuan MD from Last 3 Months Immunizations Immunization Administration Dates Next Due COVID-19 (UNSPECIFIED) 11/03/2020 Influenza, Unspecified 12/25/2016 Family History Medical History Relation Name Comments Hypertension Father Breast cancer Maternal Aunt Stroke Maternal Aunt Hypertension Maternal Grandfather Arthritis Maternal Grandmother Diabetes Maternal Grandmother Hypertension Maternal Grandmother Arthritis Mother Heart disease Mother CARDIAC ARREST Hypertension Mother Arthritis Paternal Grandmother Relation Name Status Comments Father Maternal Aunt Maternal Grandfather Maternal Grandmother Mother Paternal Grandmother Social History Tobacco Use Types Packs/Day Years [...] on file Sexual Orientation Not on file Last Filed Vital Signs Vital Sign Reading [...] Mass Index 25.92 11/11/2024 10:02 AM EDT Plan of Treatment Upcoming Encounters Date Type Department Care Team (Late st Contact Info) Description 03/13/2025 8:00 AM EST Appointment [facility] DEXA [address] [phone] 03/13/2025 8:30 AM EST Office Visit [facility] [address] [phone] Faustina Obregon APRN [address] [address] Health Maintenance Due Date Last Done Comments Annual Gynecologic Pelvic and Breast Exam 1965 Pneumococcal Vaccine 50+ (1 of 2 - PCV) 02/22/1984 TDAP/TD VACCINES (1 - Tdap) 02/22/1984 PAP SMEAR 1986 MAMMOGRAM 2005 COLOGUARD 2010 COLON CANCER SCREENING 5 YEAR SIGMOIDOSCOPY 2010 COLONOSCOPY 2010 [address] CANCER SCREENING 2010 CT COLONOGRAPHY 2010 FECAL OCCULT BLOOD TEST 2010 FIT Testing (1 year) 2010 LUNG CANCER SCREENING 2015 ZOSTER VACCINE (1 of 2) 2015 ANNUAL WELLNESS VISIT 08/29/2023 HEPATITIS C SCREENING 08/29/2023 COVID-19 Vaccine ( season) 11/24/202401/2021 INFLUENZA VACCINE 12/24/2024 12/25/2016 Insurance MEDICARE ADVANTAGE PPO Care Teams Chemical Analytical Sampler Relationship Specialty Start Date End Date Anatoliy Pulliam MD [address] [facility] [address] [place] [address] PCP - General Adolescent Medicine 08/30/23
--- OUTSIDE RECORDS SUMMARY | 2024-12-04 09:02 | XMS_ITS | Encounter Summary ---
Author Organization [employer] ([place], [place], [place], [place]) Address [address] [place] [address] Care Team Providers Care Cuprous Chloride Helper Name Role Phone Unavailable Primary Care Provider Unavailabl e Encounter Details Date Type Department Care Team (Late st Contact Info) Description 06/13/2018 Transcribed Document [facility] [place] [address] ProviderMarcela MD [facility] [place] [address] Social History Tobacco Use Types [...] Conversion Note - Historical ProviderMD - 06/13/2018 12:21 PM CDT [address] [place] [address] Patient Copy Patient Information: Name: NATIVIDAD JUAREZ Current Date: 06/13/2018 12:21:41 : 1965 Patient Address: [address] [place] [id number] Patient Attending Physician: CHEVY TEMPLE MD-SUR Primary Care Provider: KYRA CAST (REF)TREMAYNE Primary Care Provider Discharge Diagnosis: Weight on Admission: 180 lb, 0 oz Comment: Follow-up Instructions: With: Address: When: CHEVY TEMPLE [address] [place] [address], [place] [address] Business (1) 11:00 AM Discharge Instructions: Diet after Discharge: Regular diet as tolerated Activity after Discharge: No heavy lifting over 10 pounds Driving after Discharge: Do not drive, Other: do not drive for 5 days Wound/Incision Care after Discharge: Keep operative site/wound site clean and dry Immunizations Documented During Stay: No Immunizations Found Heart Failure Discharge Instructions (if any): Stroke Related Discharge Instructions (if any): Warfarin Related Discharge Instructions (if any): Final Medication List: Other Medications acetaminophen-codeine (acetaminophen-codeine #3) Oral Every 6 Hours as needed as needed for pain. alendronate 70 Milligram(s) Oral Weekly. takes on fridays. cetirizine (ZyrTEC) 10 Milligram(s) Oral Every Day. cholecalciferol (Vitamin D3) 5,000 International Units Oral Every Day. cyclobenzaprine 10 Milligram(s) Oral At Bedtime. gabapentin 600 Milligram(s) Oral At Bedtime. hydroxychloroquine (Plaquenil) 100 Milligram(s) Oral Two Times A Day. methotrexate (methotrexate 30 mg/0.6 mL subcutaneous solution) SubCutaneous Weekly. takes on Sunday. omeprazole 20 Milligram(s) Oral Every Day. sertraline (Zoloft) 50 Milligram(s) Oral Every Day. Patient Allergies: Flagyl; sulfa drugs Medication Instructions: Take your medications faithfully. Do NOT skip medication. Do NOT stop taking medications without the direction of a physician. Carry a list of your medications with you at all times, and take this medication list with you to your first follow up visit. Report any side effects. Avoid herbal remedies unless discussed with your physician. As part of your treatment plan, your physician may have prescribed a limited course of a controlled substance. This medication may be given to help people with moderate or severe pain or for other medical conditions, but there are risks involved with treatment. Common side effects may include nausea, constipation, drowsiness, sweating, itching, dry mouth, and rash. More serious side effects may include cognitive and motor impairment, like problems with thinking, concentrating, alertness, and movement (e.g. slowed reflexes), and driving and operating heavy machinery can be dangerous. It is important for you to talk to your physician if you have these side effects or questions. These controlled substances can produce physical dependence and be habit-forming if taken for an extended period of time, which means that the body has gotten used to them and may experience withdrawal symptoms if they are abruptly stopped. Withdrawal symptoms can include runny nose, sweating, goose bumps, diarrhea, abdominal cramping, rapid heartbeat, difficulty sleeping, and nervousness. Patient education materials: Open Colectomy, Care After This sheet gives [...] and water are not available, use hand cloth pattern maker. ? Change your dressing as told by [...] provider when you may shower. ??? Take kjri-kmt-[id number] and prescription medicines, including stool softeners, only [...] 10/03/2011 Document Revised: 12/11/2016 Document Reviewed: 12/11/2016 [employer] Patient Education ? 2017 [employer] Medication Leaflets: acetaminophen and hydrocodone (a SEET a MIN oh fen and sabrina droe KOE done) Hycet, Lorcet, Stafford, Verdrocet, Vicodin, Xodol, Zamicet What is the most important information I should know about acetaminophen and hydrocodone? MISUSE OF OPIOID MEDICINE CAN CAUSE ADDICTION, OVERDOSE, OR . Keep the medication in a place where others cannot get to it. An overdose of acetaminophen can damage your liver or cause . Call your doctor at once if you have pain in your upper stomach, loss of appetite, dark urine, or jaundice (yellowing of your skin or eyes). Taking opioid medicine during may cause life-threatening withdrawal symptoms in the . Fatal side effects can occur if you use opioid medicine with alcohol, or with other drugs that cause drowsiness or slow your breathing. Stop taking this medicine and call your doctor right away if you have skin redness or a rash that spreads and causes blistering and peeling. What is acetaminophen and hydrocodone? Hydrocodone is an opioid pain medication, sometimes called a narcotic. Acetaminophen is a less potent pain reliever that increases the effects of hydrocodone. Acetaminophen and hydrocodone is a combination medicine used to relieve moderate to severe pain. Acetaminophen and hydrocodone may also be used for purposes not listed in this medication guide. What should I discuss with my healthcare provider before taking acetaminophen and hydrocodone? You should not use this medicine if you are allergic to acetaminophen or hydrocodone, or if you have: ? severe asthma or breathing problems; or ?? a blockage in your stomach or intestines. Tell your doctor if you have ever had: ? liver disease; ?? a drug or alcohol addiction; ?? kidney disease; ?? a head injury or seizures; ?? urination problems; or ?? problems with your thyroid, pancreas, or gallbladder. If you use opioid medicine while you are , your baby could become dependent on the drug. This can cause life-threatening withdrawal symptoms in the baby after it is born. Babies born dependent on opioids may need medical treatment for several weeks. Do not breast-feed. This medicine can pass into breast milk and cause drowsiness, breathing problems, or in a nursing baby. How should I take acetaminophen and hydrocodone? Follow all directions on your prescription label. Never take this medicine in larger amounts, or for longer than prescribed. An overdose can damage your liver or cause . Tell your doctor if the medicine seems to stop working as well in relieving your pain. Always check your bottle to make sure you have received the correct pills (same brand and type) of medicine prescribed by your doctor. Never share this medicine with another person, especially someone with a history of drug abuse or addiction. MISUSE CAN CAUSE ADDICTION, OVERDOSE, OR . Keep the medicine in a place where others cannot get to it. Selling or giving away acetaminophen and hydrocodone is against the law. Measure liquid medicine carefully. Use the dosing syringe provided, or use a medicine dose-measuring device (not a kitchen spoon). If you need surgery or medical tests, tell the doctor ahead of time that you are using this medicine. You should not stop using this medicine suddenly. Follow your doctor's instructions about tapering your dose. Store at room temperature away from moisture and heat. Keep track of your medicine. You should be aware if anyone is using it improperly or without a prescription. Do not keep leftover opioid medication. Just one dose can cause in someone using this medicine accidentally or improperly. Ask your pharmacist where to locate a drug take-back disposal program. If there is no take-back program, flush the unused medicine down the toilet. What happens if I miss a dose? Since this medicine is used for pain, you are not likely to miss a dose. Skip any missed dose if it is almost time for your next dose. Do not use two doses at one time. What happens if I overdose? Seek emergency medical attention or call the Poison Help line at . An overdose of acetaminophen and hydrocodone can be fatal. The first signs of an acetaminophen overdose include loss of appetite, nausea, vomiting, stomach pain, sweating, and confusion or weakness. Later symptoms may include pain in your upper stomach, dark urine, and yellowing of your skin or the whites of your eyes. Overdose can also cause severe muscle weakness, pinpoint pupils, very slow breathing, extreme drowsiness, or coma. What should I avoid while taking acetaminophen and hydrocodone? Avoid driving or operating machinery until you know how this medicine will affect you. Dizziness or drowsiness can cause falls, accidents, or severe injuries. Do not drink alcohol. Dangerous side effects or could occur. Ask a doctor or pharmacist before using any other medicine that may contain acetaminophen (sometimes abbreviated as APAP). Taking certain medications together can lead to a fatal overdose. What are the possible side effects of acetaminophen and hydrocodone? Get emergency medical help if you have signs of an allergic reaction: hives; difficulty breathing; swelling of your face, lips, tongue, or throat. Opioid medicine can slow or stop your breathing, and may occur. A person caring for you should seek emergency medical attention if you have slow breathing with long pauses, blue colored lips, or if you are hard to wake up. In rare cases, acetaminophen may cause a severe skin reaction that can be fatal. This could occur even if you have taken acetaminophen in the past and had no reaction. Stop taking this medicine and call your doctor right away if you have skin redness or a rash that spreads and causes blistering and peeling. Call your doctor at once if you have: ? noisy breathing, sighing, shallow breathing; ?? a light-headed feeling, like you might pass out; ?? liver problems--nausea, upper stomach pain, tiredness, loss of appetite, dark urine, biacna-colored stools, jaundice (yellowing of the skin or eyes); or ?? low cortisol levels-- nausea, vomiting, loss of appetite, dizziness, worsening tiredness or weakness. Seek medical attention right away if you have symptoms of serotonin syndrome, such as: agitation, hallucinations, fever, sweating, shivering, fast heart rate, muscle stiffness, twitching, loss of coordination, nausea, vomiting, or diarrhea. Serious side effects may be more likely in older adults and those who are overweight, malnourished, or debilitated. Long-term use of opioid medication may affect fertility (ability to have children) in men or women. It is not known whether opioid effects on fertility are permanent. Common side effects include: ? dizziness, drowsiness, feeling tired; ?? nausea, vomiting, stomach pain; ?? constipation; or ?? headache. This is not a complete list of side effects and others may occur. Call your doctor for medical advice about side effects. You may report side effects to FDA at 1-300-DZS-1080. What other drugs will affect acetaminophen and hydrocodone? You may have breathing problems or withdrawal symptoms if you start or stop taking certain other medicines. Tell your doctor if you also use an antibiotic, antifungal medication, heart or blood pressure medication, seizure medication, or medicine to treat HIV or hepatitis C. Opioid medication can interact with many other drugs and cause dangerous side effects or . Be sure your doctor knows if you also use: ? cold or allergy medicines, bronchodilator asthma/COPD medication, or a diuretic ('water pill'); ?? medicines for motion sickness, irritable bowel syndrome, or overactive bladder; ?? other narcotic medications--opioid pain medicine or prescription cough medicine; ?? a sedative like Valium--diazepam, alprazolam, lorazepam, Xanax, Klonopin, Versed, and others; ?? drugs that make you sleepy or slow your breathing--a sleeping pill, muscle relaxer, medicine to treat mood disorders or mental illness; ?? drugs that affect serotonin levels in your body--a stimulant, or medicine for depression, Parkinson's disease, migraine headaches, serious infections, or nausea and vomiting. This list is not complete. Other drugs may affect acetaminophen and hydrocodone, including prescription and layb-dps-xprqhva medicines, vitamins, and herbal products. Not all possible interactions are listed here. Where can I get more information? Your doctor or pharmacist can provide more information about acetaminophen and hydrocodone. Remember, keep this and all other medicines out of the reach of children, never share your medicines with others, and use this medication only for the indication prescribed. Every effort has been made to ensure that the information provided by [employer] ('[employer]') is accurate, up-to-date, and complete, but no guarantee is made to that effect. Drug information contained herein may be time sensitive. [employer] information has been compiled for use by healthcare practitioners and consumers in the [place] and therefore [employer] does not warrant that uses outside of the [place] are appropriate, unless specifically indicated otherwise. [employer]'s drug information does not endorse drugs, diagnose patients or recommend therapy. [employer] drug information is an informational resource designed to assist licensed healthcare practitioners in caring for their patients and/or to serve consumers viewing this service as a supplement to, and not a substitute for, the expertise, skill, knowledge and judgment of healthcare practitioners. The absence of a warning for a given drug or drug combination in no way should be construed to indicate that the drug or drug combination is safe, effective or appropriate for any given patient. [employer] does not assume any responsibility for any aspect of healthcare administered with the aid of information [employer] provides. The information contained herein is not intended to cover all possible uses, directions, precautions, warnings, drug interactions, allergic reactions, or adverse effects. If you have questions about the drugs you are taking, check with your doctor, nurse or pharmacist. Copyright 6864-6142 [employer] Version: 15.02. Revision Date: 01/28/2018. CIGARETTE SMOKING: The facts are clear, cigarette smoking will shorten your life. Smoking can cause many illnesses along the way. As a healthcare provider, we recommend that you stop smoking. Assistance with quitting is available by contacting 4-875-VXUV-NOW. This is a free resource providing counseling, support, and referral. Or you may contact your personal physician. 4 WAYS TO GET AHEAD OF SEPSIS SEPSIS is a MEDICAL EMERGENCY. Time matters! Infections put you and your family at risk for a life-threatening condition called sepsis. Sepsis is the body???s extreme response to an infection. It is life-threatening, and without timely treatment, sepsis can rapidly lead to tissue damage, organ failure, and . Sepsis happens when an infection you already have???in your skin, lungs, urinary tract or somewhere else???triggers a chain reaction throughout your body. 1 PREVENT INFECTIONS Take good care of chronic conditions. Talk to your doctor about getting the recommended vaccines. 2 PRACTICE GOOD HYGIENE Wash your hands frequently. Keep cuts or open sores clean and covered until they are healed. 3 KNOW THE SYMPTOMS Confusion or disorientation Shortness of breath High heart rate Fever, shivering, or feeling very cold Extreme pain or discomfort Clammy or sweaty skin 4 ACT FAST Get medical care IMMEDIATELY if you suspect sepsis or if you have an infection that???s not getting better or is getting worse. To learn more about sepsis and how to prevent infections, visit www.cdc.gov/sepsis. STROKE is an EMERGENCY Every Minute Counts ACT F.A.S.T! FACE ?? Facial droop ?? Uneven smile ARM ?? Arm numbness ?? Arm weakness SPEECH ?? Slurred speech ?? Difficulty speaking or understanding TIME ?? Call 911 and get to the hospital immediately Have the ambulance go to the nearest stroke center. STROKE Risk Factors High blood pressure High cholesterol Heart Disease Diabetes Smoking Heavy alcohol use Physical inactivity and obesity Atrial Fibrillation (irregular heartbeat) Family history of stroke Reminder: Be sure to sign up for the GVISP 1 patient portal, which gives you 16/10 access to your medical information ??? including these discharge instructions ??? using your computer, smartphone, or tablet. Just go to Viewabill to get started. Questions? Call . [facility] would like to thank you for allowing us to assist you with your healthcare needs. IVA Rosas CRYSTAL CAPPS, (or inside sales representative) have received the above patient education materials/instructions and have verbalized understanding: Patient Signature _ Date/Time Patient Zoo Veterinarian Signature (if needed) Date/Time Clinician/Hospital Zoo Veterinarian Signature (if needed) Date/Time documented in this encounter Plan of Treatment Not on file documented as of this encounter Visit Diagnoses Not on filedocumented in this encounter
--- OUTSIDE RECORDS SUMMARY | 2024-12-04 09:02 | XMS_ITS | Encounter Summary ---
Author Organization [facility] Address [address] [address] Care Team Providers Care Workcell Operator Name Role Phone Anatoliy Pulliam MD Primary Care Provider [phone] Encounter Details Date Type Department Care Team (Latest Contact Info) Description 11/11/2024 Travel Social History Tobacco Use Types Packs/Day Years Used Date Smoking Tobacco: Every Day Cigarettes 0.5 43.7 Started: 1981 Smokeless Tobacco: Never Alcohol Use Standard Drinks/Week Comments Not Currently 0 (1 standard drink = 0.6 oz pur e alcohol) Comments Unknown Sex and Gender Information Value Date Recorded Sex Assigned at Not on file Legal Sex Female 10:05 AM EDT Gender Identity Not on file Sexual Orientation Not on file documented as of this encounter Plan of Treatment Upcoming Encounters Date Type Department Care Team (Late st Contact Info) Description 03/13/2025 8:00 AM EST Appointment [facility] RHEUMATOLOGY DEXA [address] [address] 03/13/2025 8:30 AM EST Office Visit [facility] RHEUMATOLOGY [address] [place] [address] Faustina Obregon APRN 330 [facility] [address] [place], [place] [id number] documented as of this encounter Visit Diagnoses Not on filedocumented in this encounter Care Teams Workcell Operator Relationship Specialty Start Date End Date Anatoliy Pulliam MD [address] [facility] [address] [facility] [address] [place] [address] PCP - General Adolescent Medicine 08/30/23 documented as of this encounter
--- OUTSIDE RECORDS SUMMARY | 2024-12-04 09:02 | XMS_ITS | Encounter Summary ---
Author Organization [email or web address] ([place], [place], [place], [place]) Address [address] [place] [address] Care Team Providers Care Light Armored Vehicle Officer Name Role Phone Unavailable Primary Care Provider Unavailabl e Encounter Details Date Type Department Care Team (Late st Contact Info) Description 06/13/2018 Transcribed Document [facility] [place] Family Medicine [address] [place] [address] ProviderMarcela MD [address] [place] [address] Social History Tobacco Use Types [...] Conversion Note - Historical ProviderMD - 06/13/2018 10:34 AM CDT Discharge Instructions Entered On: 06/13/2018 10:35 EDT Performed On: 06/13/2018 10:34 EDT by Leydi Betts RN DC Instructions HWD Stroke/TIA Discharge Ins : N/A Heart Failure Discharge Ins : N/A Warfarin Discharge Ins : N/A Leydi Betts RN - 06/13/2018 11:10 EDT Diet After Discharge : Regular diet as tolerated Activity After Discharge : No heavy lifting over 10 pounds Driving After Discharge : Do not drive, Other: do not drive for 5 days Wound/Incision Care After Discharge : Keep operative site/wound site clean and dry Leydi Betts RN - 06/13/2018 10:34 EDT Electronically signed by [facility] Conversion Salt Manager Cerjordan at 07/09/2022 8:23 AM CDT documented in this encounter Plan of Treatment Not on file documented as of this encounter Visit Diagnoses Not on filedocumented in this encounter
--- OUTSIDE RECORDS SUMMARY | 2024-12-04 09:02 | XMS_ITS | Encounter Summary ---
Author Organization [facility] Address [address] [id number] Care Team Providers Care Snath Handle Assembler Name Role Phone Anatoliy Pulliam MD Primary Care Provider [phone] Reason for Visit * Reason Onset Date Comments Med Refill 11/13/2024 Encounter Details Date Type Department Care Team (Late st Contact Info) Description 11/13/2024 [facility] 330 [facility] [address] [place] [address] Faustina Obregon APRN 330 [facility] [address] [place], [place] [id number] Social History Tobacco Use Types Packs/Day Years [...] as of this encounter Miscellaneous Notes * Telephone Encounter - Brittany Carpenter MA - 11/13/2024 2:12 PM EDT Rx Refill Note Requested Prescriptions Pending Prescriptions Disp Refills omeprazole (priLOSEC) 40 MG capsule 180 capsule 0 Sig: Take 1 capsule by mouth Daily. Last office visit with prescribing clinician: 11/11/2024 Last telemedicine visit with prescribing clinician: Visit date not found Next office visit with prescribing clinician: 03/13/2025 Would you like a call back once the refill request has been completed: [] Yes [] No If the office needs to give you a call back, can they leave a voicemail: [] Yes [] No Resending rx with corrected instructions. Rx was sent with quantity for BID but instructions for only QD. HUB OK TO RELAY Brittany Carpenter MA 11/13/24, 14:12 EDT * Telephone Encounter - Pritesh Hamilton RegSched Rep - 11/13/2024 1:59 PM EDT PHARMACY CALLED IN. PT'S LAST RX FOR OMEPRAZOLE 40 MG WAS WRITTEN FOR 1/DAY, BUT SHE WAS EXPECTING 2/DAY THIS IS WHAT SHE HAD BEEN ON IN THE PAST. PLEASE RESEND RX IF THIS IS CORRECT documented in this encounter Plan of Treatment Upcoming Encounters Date Type Department Care Team (Late st Contact Info) Description 03/13/2025 8:00 AM EST Appointment [facility] RHEUMATOLOGY DEXA [address] [id number] 03/13/2025 8:30 AM EST Office Visit [facility] RHEUMATOLOGY [address] [phone] Faustina Obregon APRN 330 [facility] [address] [place] [address] documented as of this encounter Visit Diagnoses Not on filedocumented in this encounter Care Teams Snath Handle Assembler Relationship Specialty Start Date End Date Anatoliy Pulliam MD [address] [facility] [address] [place] [address] PCP - General Adolescent Medicine 08/30/23 documented as of this encounter
--- OUTSIDE RECORDS SUMMARY | 2024-12-04 09:02 | XMS_ITS | Encounter Summary ---
Author Organization [employer] ([place], [place], [place], [place]) Address [address] [place] [address] Care Team Providers Care Glass Embosser Name Role Phone Unavailable Primary Care Provider Unavailabl e Encounter Details Date Type Department Care Team (Late st Contact Info) Description 06/12/2018 Transcribed Document [facility] [place] [address] [place] [address] ProviderMarcela MD [address] [place] [address] Social History Tobacco Use Types [...] Conversion Note - Marcela ProviderMD - 06/12/2018 8:14 AM CDT Pain Assessment Entered On: 06/12/2018 11:34 EDT Performed On: 06/12/2018 11:30 EDT by HARISH KHALIL RN Intervention Information: HYDROmorphone Performed by HARISH KHALIL RN on 06/12/2018 11:00:00 EDT HYDROmorphone,0.5mg IV Push,Left Hand,Pain (Severe 7-10) Pain Assessment Pain Assessment : Follow-up assessment Pain Scale Goal : 2 Pain Scale Used : 0-10 Scale Pain Improved by Intervention : Yes Pain Comment : appears much more comfortable. voices pain is better when asked. HARISH KHALIL RN - 06/12/2018 11:33 EDT Pain Scale Intensity : 5 HARISH KHALIL RN - 06/12/2018 11:33 EDT Image 4 - Images currently included in the form version of this document have not been included in the text rendition version of the form. documented in this encounter Plan of Treatment Not on file documented as of this encounter Visit Diagnoses Not on filedocumented in this encounter
--- OUTSIDE RECORDS SUMMARY | 2024-12-04 09:02 | XMS_ITS | Encounter Summary ---
Author Organization [employer] ([place], [place], [place], [place]) Address [address] [place] [address] Care Team Providers Care Science Instructor Name Role Phone Unavailable Primary Care Provider Unavailabl e Encounter Details Date Type Department Care Team (Late st Contact Info) Description 06/12/2018 Transcribed Document [facility] [place] [facility] [address] [place] [address] ProviderMarcela MD [address] [place] [address] Social History Tobacco Use Types [...] Cerner Conversion Note - Historical ProviderMD - 06/12/2018 9:55 AM CDT Pain Assessment Entered On: 06/13/2018 0:21 EDT Performed On: 06/12/2018 21:46 EDT by Stephanie Pritchett Intervention Information: ketorolac Performed by Stephanie Pritchett on 06/12/2018 21:41:00 EDT ketorolac,30mg IntraVENous,Right Lower Forearm,Pain (Moderate 4-6) Pain Assessment Pain Assessment : Follow-up assessment Pain Scale Goal : 2 Pain Scale Used : 0-10 Scale Stephanie Pritchett - 06/13/2018 0:21 EDT Pain Scale Intensity : 3 Stephanie Pritchett - 06/13/2018 0:21 EDT Image 4 - Images currently included in the form version of this document have not been included in the text rendition version of the form. documented in this encounter Plan of Treatment Not on file documented as of this encounter Visit Diagnoses Not on filedocumented in this encounter
--- OUTSIDE RECORDS SUMMARY | 2024-12-04 09:02 | XMS_ITS | Encounter Summary ---
Author Organization [employer] ([place], [place], [place], [place]) Address [address] [place] [address] Care Team Providers Care Butadiene Converter Helper Name Role Phone Unavailable Primary Care Provider Unavailabl e Encounter Details Date Type Department Care Team (Late st Contact Info) Description 06/12/2018 Transcribed Document [facility] [place] [address] [place] [address] ProviderMarcela MD [address] [place] [address] Social History Tobacco Use Types [...] Conversion Note - Marcela ProviderMD - 06/12/2018 8:17 AM CDT [facility] Main OR PACU Summary Primary Physician: CHEVY TEMPLE MD-SUR Finalized Date/Time: 06/12/18 14:12:35 Pt. Name: NATIVIDAD ENRIQUE MARIELLE /Sex: 1965 Female Med Rec #: [id number] Physician: CHEVY TEMPLE MD-SUR Financial #: [id number] Pt. Type: I Room/Bed: [facility]/ Admit/Disch: 06/12/18 07:21:00 - Institution: [facility] Main OR PACU I Case Times Entry 1 In PACU I 06/12/18 10:06:00 Ready for PACU 06/12/18 13:10:00 Discharge Discharge from PACU 06/12/18 13:10:00 I Last Modified By: HARISH KHALIL RN 06/12/18 14:10:35 [facility] Main OR PACU I Case Times Audit 06/12/18 14:10:35 Issuer: ZYEAD Modifier: PILIEP <+> 1 Ready for PACU Discharge <+> 1 Discharge from PACU I Finalized By: HARISH KHALIL, RN Document Signatures Signed By: HARISH KHALIL RN 06/12/18 14:12 Electronically signed by Philly [facility] Conversion Dog Barber Cerner at 07/09/2022 8:42 AM CDT documented in this encounter Plan of Treatment Not on file documented as of this encounter Visit Diagnoses Not on filedocumented in this encounter
--- OUTSIDE RECORDS SUMMARY | 2024-12-04 09:02 | XMS_ITS | Clinical Summary ---
Author Organization [employer] ([place], [place], [place], [place]) Address [address] [place] [address] Care Team Providers Care Router Operator Radial Name Role Phone Unavailable Primary Care Provider Unavailabl e Social History Tobacco Use Types Packs/Day Years Used Date Smoking Tobacco: Never Assessed Comments Unknown Sex and Gender Information Value Date Recorded Sex Assigned at Female 09/21/2021 11:58 AM CDT Legal Sex Female 6:30 PM CDT Gender Identity Female 09/21/2021 11:58 AM CDT Sexual Orientation Not on file Plan of Treatment Not on file
--- OUTSIDE RECORDS SUMMARY | 2024-12-04 09:02 | XMS_ITS | Encounter Summary ---
Author Organization [employer] ([place], [place], [place], [place]) Address [address] [place] [address] Care Team Providers Care Pole Peeling Machine Operator Name Role Phone Unavailable Primary Care Provider Unavailabl e Encounter Details Date Type Department Care Team (Late st Contact Info) Description 06/12/2018 Transcribed Document [facility] [place] Medicine [address] [place] [address] ProviderMarcela MD [address] [place] [address] Social History Tobacco Use Types [...] Conversion Note - Marcela ProviderMD - 06/12/2018 8:00 AM CDT [facility] Main OR Preop Summary Primary Physician: CHEVY TEMPLE MD-SUR Finalized Date/Time: 06/12/18 07:58:17 Pt. Name: NATIVIDAD ENRIQUE MARIELLE /Sex: 1965 Female Med Rec #: [id number] Physician: CHEVY TEMPLE MD-SUR Financial #: [id number] Pt. Type: I Room/Bed: ASA/15 Admit/Disch: 06/12/18 07:21:00 - Institution: [facility] PreOp Case Times Entry 1 In Preop 06/12/18 06:15:00 Ready for Holding n/a Room Patient Ready for 06/12/18 07:50:00 Surgery Patient Out of Preop 06/12/18 07:53:00 Patient Out of n/a Holding Room Last Modified By: NENA SANFORD RN 06/12/18 07:58:13 [facility] PreOp Case Times Audit 06/12/18 07:58:13 Director Of Alumni Relations: JAYE Modifier: JAYE <+> 1 Patient Out of Preop <+> 1 Patient Ready for Surgery Finalized By: NENA SANFORD, RN Document Signatures Signed By: NENA SANFORD RN 06/12/18 07:58 Electronically signed by Philly [facility] Conversion Marble [employer] Granite Polisher Cerner at 07/09/2022 8:32 AM CDT documented in this encounter Plan of Treatment Not on file documented as of this encounter Visit Diagnoses Not on filedocumented in this encounter
--- OUTSIDE RECORDS SUMMARY | 2024-12-04 09:02 | XMS_ITS | Encounter Summary ---
[facility] Address [address] [place] [id number] Care Team Providers Care Armhole Baster Hand Name Role Phone Anatoliy Pulliam MD Primary Care Provider [phone] Encounter Details Date Type Department Care Team (Late st Contact Info) Description 10/27/2024 Telephone [facility] [address] [place] [phone] Karl Yuan MD [address] [id number] Social History Tobacco Use Types Packs/Day Years Used Date Smoking Tobacco: Every Day Cigarettes Smokeless Tobacco: Never Alcohol Use Standard Drinks/Week Comments Not Currently 0 (1 standard drink = 0.6 oz pur e alcohol) Comments Unknown Sex and Gender Information Value Date Recorded Sex Assigned at Not on file Legal Sex Female 10:05 AM EDT Gender Identity Not on file Sexual Orientation Not on file documented as of this encounter Progress Notes * Brittany Carpenter MA - 10/27/2024 2:21 PM EDTAddended by: BRITTANY CARPENTER on: 10/27/2024 02:21 PM Modules accepted: Orders documented in this encounter Miscellaneous Notes * Telephone Encounter - Brittany Carpenter MA - 10/27/2024 2:20 PM EDT Rx Refill Note Requested Prescriptions Pending Prescriptions Disp Refills hydroxychloroquine (PLAQUENIL) 200 MG tablet 180 tablet 1 Sig: Take 1 tablet by mouth 2 (Two) Times a Day. Last office visit with prescribing clinician: 04/28/2024 Last telemedicine visit with prescribing clinician: Visit date not found Next office visit with prescribing clinician: 11/11/2024 07/17/2024 Would you like a call back once the refill request has been completed: [] Yes [] No If the office needs to give you a call back, can they leave a voicemail: [] Yes [] No Rx sent, hub ok to relay Brittany Carpenter MA 10/27/24, 14:20 EDT * Telephone Encounter - Francisca Romero RegSched Rep - 10/27/2024 1:21 PM EDT Images from the original note were not included. File Link Scan on 10/27/2024 0607 by Judith Claudio: KROGER,HYDROXYCHLORQUINE,10/27/24 Richardson Information Document ID File Type Document Type Description [id number] Image MEDICATIONS - SCAN KROGER,HYDROXYCHLORQUINE,10/27/24 Import Information Attached At Date Time User Dept Encounter Level 10/27/2024 6:07 AM Judith Claudio Encounter Scanned Document on 10/27/24 with Judith Claudio documented in this encounter Plan of Treatment Upcoming Encounters Date Type Department Care Team (Late st Contact Info) Description 03/13/2025 8:00 AM EST Appointment [facility] D[place] [address] [phone] 03/13/2025 8:30 AM EST Office Visit [facility] [address] [facility] [address] [place] [address] Faustina Obregon APRN [address] [address] documented as of this encounter Visit Diagnoses Diagnosis Systemic lupus erythematosus, unspecified SLE type, unspecified organ involvement status High risk medication use documented in this encounter Care Teams Armhole Baster Hand Relationship Specialty Start Date End Date Anatoliy Pulliam MD [address] [facility] [address] [facility] [address] PCP - General Adolescent Medicine 08/30/23 documented as of this encounter
--- OUTSIDE RECORDS SUMMARY | 2024-12-04 09:02 | XMS_ITS | Encounter Summary ---
[facility] Address [address] [place] [id number] Care Team Providers Care Hydraulic Spinner Name Role Phone Anatoliy Pulliam MD Primary Care Provider [phone] Encounter Details Date Type Department Care Team (Late st Contact Info) Description 10/13/2024 Telephone [facility] [address] [place] [phone] Karl Yuan MD [address] [phone] Social History Tobacco Use Types Packs/Day Years [...] as of this encounter Progress Notes * Natividad Barrera MA - 10/13/2024 12:10 PM EDTAddended by: NATIVIDAD BARRERA on: 10/13/2024 12:10 PM Modules accepted: Orders documented in this encounter Miscellaneous Notes * Telephone Encounter - Natividad Barrera MA - 10/13/2024 12:05 PM EDT Refill request for MTX to RTC 11/06/24. Labs due 10/17/24. I sent in rx for qty 72 with 0 refills. -HENRRY Amaya * Telephone Encounter - Francisca Romero RegSched Rep - 10/13/2024 11:40 AM EDT Images from the original note were not included. File Link Scan on 10/10/2024 0612 by Judith Claudio: KROGER,METHOTREXATE,10/10/24 Richardson Information Document ID File Type Document Type Description [id number] Image MEDICATIONS - SCAN KROGER,METHOTREXATE,10/10/24 Import Information Attached At Date Time User Dept Encounter Level 10/10/2024 6:12 AM Judith Claudio Encounter Scanned Document on 10/10/24 with Judith Claudio documented in this encounter Plan of Treatment Upcoming Encounters Date Type Department Care Team (Late st Contact Info) Description 03/13/2025 8:00 AM EST Appointment [facility] DEXA [address] [phone] 03/13/2025 8:30 AM EST Office Visit [facility] [address] [phone] Faustina Obregon APRN [address] [address] documented as of this encounter Visit Diagnoses Diagnosis Systemic lupus erythematosus, unspecified SLE type, unspecified organ involvement status High risk medication use documented in this encounter Care Teams Hydraulic Spinner Relationship Specialty Start Date End Date Anatoliy Pulliam MD [address] [facility] [address] [place] [address] PCP - General Adolescent Medicine 08/30/23 documented as of this encounter
--- OUTSIDE RECORDS SUMMARY | 2024-12-04 09:02 | XMS_ITS | Encounter Summary ---
Author Organization [employer] ([place], [place], [place], [place]) Address [address] [place] [address] Care Team Providers Care Manager Of Global Name Role Phone Unavailable Primary Care Provider Unavailabl e Encounter Details Date Type Department Care Team (Late st Contact Info) Description 06/12/2018 Transcribed Document [facility] [place] [facility] [place] [address] ProviderMarcela MD [facility] [place] [address] Social History Tobacco Use Types [...] Historical ProviderMD - 06/12/2018 9:55 AM CDT Evaluation, Physical Therapy Entered On: 06/13/2018 11:38 EDT Performed On: 06/13/2018 11:37 EDT by Jesus Pretty, PT General Information, PT Visit Type, PT : Initial evaluation Jesus Pretty, PT - 06/13/2018 12:19 EDT Patient Orders : Order Date Order Ordering 06/12/2018 09:56 PT Evaluation and Treatment Ordered By: CHEVY TEMPLE MD-SARA Active Diagnoses : No Qualifying Diagnoses Therapy Diagnosis, PT : Pt is at baseline functional independence Onset of Problem, PT : 06/12/2018 EDT Admission Date : 06/12/2018 07:21 Co-treated by, PT : Occupational Therapist Personal Devices : Personal Devices No Devices Recorded Assistive Devices : Assistive Devices No Devices Recorded General Information Comment, PT : Hx: laproscopy, partrial R colon resection with intracorporeal anastomis; robotic lymphadenectomy Jesus Pretty, PT - 06/13/2018 11:37 EDT General Status Patient Received Status : Supine in bed Treatment Start Time : 06/13/2018 9:23 EDT Patient Left Status : Up in chair, Communication board completed, All needs met and within reach RN/PCT Informed Comment : RN OK'd PTx Treatment End Time : 06/13/2018 9:37 EDT Treatment Time : 14 Minute(s) Jesus Pretty PT - 06/13/2018 12:19 EDT History and Environment Living Situation, Therapy : Home Patient Lives With : Spouse Persons Providing Information : Patient Home Equipment Therapy, PT : None Jesus Pretty, PT - 06/13/2018 12:19 EDT Upper Extremity Right UE Active ROM : WFL Left UE Active ROM : WFL Jesus Pretty PT - 06/13/2018 12:19 EDT Lower Extremity RLE Active ROM : [facility] LLE Active ROM : [facility] Jesus Pretty PT - 06/13/2018 12:19 EDT Functional Mobility Mobility Grid Sit to Stand : Rehab Complete independence Stand to Sit : Rehab Complete independence Jesus Pretty PT - 06/13/2018 12:19 EDT Sit to Stand Device : Belt, gait, Walker, front wheel Jesus Pretty PT - 06/13/2018 12:19 EDT Gait Training/Assessment, PT Weight Bearing Status Maintained : Yes Weight Bearing Status : Full Gait Assistance Level : Independent, complete Walking Distance : 700' Ambulatory Devices : None, Gait belt Gait Deviations : Yes Jesus Pretty PT - 06/13/2018 12:19 EDT Cognition Assessment, PT Orientation : Oriented x 4 Attention Assessment : Present Jesus Pretty PT - 06/13/2018 12:19 EDT Edu Topics Physical Therapy Education Grid Gait Training : Verbalizes understanding Role of Physical Therapy : Verbalizes understanding Use of Assistive Device : Verbalizes understanding Jesus Pretty PT - 06/13/2018 12:19 EDT Indication Assesessment, PT Physical Therapy Indicated : No Physical Therapy Not Indicated : Independent, complete Jesus Pretty PT - 06/13/2018 12:19 EDT Plan of Care, PT PT Tx Plan/Goals Established w Patient : Yes Jesus Pretty PT - 06/13/2018 12:19 EDT Treatment Note Subjective Comment : Pt agreed to PTx Patient's Response to Treatment : Pt tolerated tx well Assessment : Pt is at functional independence and would not benefit from skilled PTx at this time Plan for Treatment : Discharge from PTx Jesus Pretty, PT - 06/13/2018 12:19 EDT Pain Assessment Pain Comment : Pt did not report pain this tx session. Jesus Pretty, PT - 06/13/2018 12:19 EDT Image 1 - Images currently included in the form version of this document have not been included in the text rendition version of the form. Anticipated Discharge Needs, OT/PT Anticipated Discharge to OT : Home, with family care Recommend Continued Therapy at Discharge : No Jesus Pretty, PT - 06/13/2018 12:[address] [facility] Charges PT Eval Low Complexity : 1 Jesus Pretty, PT - 06/13/2018 12:19 EDT documented in this encounter Plan of Treatment Not on file documented as of this encounter Visit Diagnoses Not on filedocumented in this encounter
--- OUTSIDE RECORDS SUMMARY | 2024-12-04 09:02 | XMS_ITS | Encounter Summary ---
Author Organization [employer] ([place], [place], [place], [place]) Address [address] [place] [address] Care Team Providers Care Wireworker Name Role Phone Unavailable Primary Care Provider Unavailabl e Encounter Details Date Type Department Care Team (Late st Contact Info) Description 06/12/2018 Transcribed Document [facility] Family [facility] [address] ProviderMarcela MD [address] [place] [address] Social History Tobacco Use Types [...] Marcela ProviderMD - 06/12/2018 8:17 AM CDT [facility] Main OR IntraOp Summary Primary Physician: CHEVY TEMPLE MD-SUR Finalized Date/Time: 07/16/18 14:10:34 Pt. Name: EUNICE JUAREZ CAPPS /Sex: 1965 Female Med Rec #: [id number] Physician: CHEVY TEMPLE MD-SUR Financial #: [id number] Pt. Type: I Room/Bed: [facility]/ Admit/Disch: 06/12/18 07:21:00 - 06/13/18 14:02:00 Institution: [facility] IntraOp Case Attendance Entry 1 Entry 2 Entry 3 Case Attendee CHEVY TEMPLE RHYNE, HEATHER, MD ARRINGTON, ASHLEY, CRNA MD-SUR Role Performed Surgeon/Proceduralist, Anesthesiologist of BIOMEDICAL ENGINEERING AIDE/Nurse Electric Meter Tester Helper First Record Time In 06/12/18 07:58:00 06/12/18 07:58:00 06/12/18 07:58:00 Time Out 06/12/18 10:04:00 06/12/18 10:04:00 06/12/18 10:04:00 Procedure Colon Resection Colon Resection Colon Resection Robotic(Right) Robotic(Right) Robotic(Right) Other Attendee Superficial Wound Closed By: Last Modified By: Sweta [place], Sweta Webb, Sweta Webb, ESTEBAN 06/12/18 10:04:44 06/12/18 10:04:44 06/12/18 10:04:44 Entry 4 Entry 5 Entry 6 Case Attendee SHARI SANTANA, Catalina Akbar, Sweta Webb, RN Patient Care Bedside Role Performed INTERNATIONAL EDITORIAL PRODUCER Bait Tier, First Bait Tier, Second Time In 06/12/18 07:58:00 06/12/18 07:58:00 06/12/18 07:58:00 Time Out 06/12/18 10:04:00 06/12/18 10:04:00 06/12/18 10:04:00 Procedure Colon Resection Colon Resection Colon Resection Robotic(Right) Robotic(Right) Robotic(Right) Other Attendee Superficial Wound Closed By: Last Modified By: Sweta [place], Sweta Webb, RN Sweta [place], ESTEBAN 06/12/18 10:04:44 06/12/18 10:04:44 06/12/18 10:04:44 Entry 7 Entry 8 Entry 9 Case Attendee HOLDEN DOWNING Josh, REP - SSI OTHER, ATTENDEE #1 Role Performed Scrub, First Wedger And Gluer, Ancillary Vendor Time In 06/12/18 07:58:00 06/12/18 07:58:00 06/12/18 07:58:00 Time Out 06/12/18 10:04:00 06/12/18 10:04:00 06/12/18 10:04:00 Procedure Colon Resection Colon Resection Colon Resection Robotic(Right) Robotic(Right) Robotic(Right) Other Attendee adelaide Jimenezff: Saloni Xi stapler rep Superficial Wound Closed By: Last Modified By: Sweta [place], Catalina Can, Catalina Can, Esteban 06/12/18 10:04:44 Patient Care Bedside Patient Care Bedside 06/12/18 08:18:25 06/12/18 08:52:58 [facility] IntraOp Case Attendance Audit 06/12/18 11:31:32 Supervisor Ore Dressing: MEENAKSHI Modifier: NORBERT 2 <*> Case Attendee TANNA MACIEL MD 2 <*> Procedure Colon Resection Robotic(Right) 06/12/18 10:04:44 Supervisor Ore Dressing: NORBERT Modifier: MEENAKSHI 1 <+> Time Out 1 <*> Procedure Colon Resection Robotic(Right) 2 <+> Time Out 2 <*> Procedure Colon Resection Robotic(Right) 3 <+> Time Out 3 <*> Procedure Colon Resection Robotic(Right) 4 <+> Time Out 4 <*> Procedure Colon Resection Robotic(Right) 5 <+> Time Out 5 <*> Procedure Colon Resection Robotic(Right) 6 <+> Time Out 6 <*> Procedure Colon Resection Robotic(Right) 7 <+> Time Out 7 <*> Procedure Colon Resection Robotic(Right) 8 <+> Time Out 8 <*> Procedure Colon Resection Robotic(Right) 9 <+> Time Out 9 <*> Procedure Colon Resection Robotic(Right) 06/12/18 08:52:58 Supervisor Ore Dressing: NORBERT Modifier: FLYELSA 1 <*> Procedure Colon Resection Robotic(Right) 2 <*> Procedure Colon Resection Robotic(Right) 3 <*> Procedure Colon Resection Robotic(Right) 4 <*> Procedure Colon Resection Robotic(Right) 5 <*> Procedure Colon Resection Robotic(Right) 6 <*> Procedure Colon Resection Robotic(Right) 7 <*> Procedure Colon Resection Robotic(Right) 8 <*> Procedure Colon Resection Robotic(Right) 9 <+> Time In 9 <*> Procedure Colon Resection Robotic(Right) 9 <*> Other Attendee Abigail Stark 06/12/18 08:48:31 Supervisor Ore Dressing: NORBERT Modifier: FLYELSA 1 <*> Procedure Colon Resection Robotic(Right) 2 <*> Procedure Colon Resection Robotic(Right) 3 <*> Procedure Colon Resection Robotic(Right) 4 <*> Procedure Colon Resection Robotic(Right) 5 <*> Procedure Colon Resection Robotic(Right) 6 <*> Procedure Colon Resection Robotic(Right) 7 <*> Procedure Colon Resection Robotic(Right) 8 <+> Time In 8 <*> Procedure Colon Resection Robotic(Right) <+> 9 Case Attendee <+> 9 Role Performed <+> 9 Procedure <+> 9 Other Attendee 06/12/18 08:18:25 Supervisor Ore Dressing: MEENAKSHI Modifier: NORBERT 1 <+> Time In 1 <*> Procedure Colon Resection Robotic(Right) 2 <+> Time In 2 <*> Procedure Colon Resection Robotic(Right) 3 <+> Time In 3 <*> Procedure Colon Resection Robotic(Right) 4 <+> Time In 4 <*> Procedure Colon Resection Robotic(Right) 5 <+> Time In 5 <*> Procedure Colon Resection Robotic(Right) 6 <+> Time In 6 <*> Procedure Colon Resection Robotic(Right) 7 <+> Time In 7 <*> Procedure Colon Resection Robotic(Right) <+> 8 Case Attendee <+> 8 Role Performed <+> 8 Procedure <+> 8 Other Attendee 06/12/18 07:33:04 Supervisor Ore Dressing: MEENAKSHI Modifier: LAFAVEHM <+> 1 Procedure 2 <*> Procedure Colon Resection Robotic(Right) 3 <*> Procedure Colon Resection Robotic(Right) 4 <*> Procedure Colon Resection Robotic(Right) 5 <*> Procedure Colon Resection Robotic(Right) 6 <*> Procedure Colon Resection Robotic(Right) 7 <*> Procedure Colon Resection Robotic(Right) [facility] IntraOp Case Times Entry 1 Patient In Room Time 06/12/18 07:58:00 Out Room Time 06/12/18 10:04:00 Anesthesia Start Time 06/12/18 07:58:00 Stop Time 06/12/18 10:04:00 Surgery / Procedure Times Start Time 06/12/18 08:17:00 Stop Time 06/12/18 09:57:00 Last Modified By: Sweta [place], ESTEBAN 06/12/18 09:57:29 [facility] IntraOp Case Times Audit 06/12/18 10:04:41 Supervisor Ore Dressing: MEENAKSHI Modifier: BRANDYHM <+> 1 Out Room Time <+> 1 Stop Time 06/12/18 09:57:29 Supervisor Ore Dressing: NORBERT Modifier: LAFAVEHM <+> 1 Stop Time [facility] IntraOp Cautery Entry 1 ESU Identification Cautery Type Monopolar ESU Cautery Type davinci xi robot Comments ID Number [id number] ID Type Hospital Number Cautery Settings Cut Setting 4 Coag Setting 4 ESU Grounding Pad Ground Pad Type Adult Grounding Pad Site Left thigh Grounding Pad Catalina Thompson Rn Applied By Patient Care Bedside Grounding Pad Site Intact, Dry Skin Condition Before Cautery Grounding Pad Site Unchanged Skin Condition After Cautery Last Modified By: Sweta [place] RN 06/12/18 07:29:59 [facility] IntraOp Cautery Audit 06/12/18 08:33:42 Supervisor Ore Dressing: MEENAKSHI Modifier: NORBERT 1 <*> Coag Setting 3 1 <*> Cut Setting 3 [facility] IntraOp Communication Entry 1 Entry 2 Entry 3 Communication To Family/Significant other Family/Significant other Family/Significant other Comment Communication By Catalina Thompson Rn Flynt, Jacqueline, Rn Montgomery, Hazel, ESTEBAN Patient Care Bedside Patient Care Bedside Date and Time 06/12/18 08:17:00 06/12/18 09:09:00 06/12/18 09:47:00 Last Modified By: Catalina Thompson Rn Montgomery, Hazel, Sweta Webb, ESTEBAN Patient Care Bedside 06/12/18 09:11:41 06/12/18 09:47:13 06/12/18 08:17:54 [facility] IntraOp Communication Audit 06/12/18 09:47:13 Supervisor Ore Dressing: MEENAKSHI Modifier: LAFAVEHM <+> 3 Communication By <+> 3 Date and Time <+> 3 Communication To 06/12/18 09:11:41 Supervisor Ore Dressing: NORBERT Modifier: LAFAVEHM <+> 2 Communication By <+> 2 Date and Time <+> 2 Communication To [facility] IntraOp Counts Verification Entry 1 Procedure Colon Resection Robotic(Right) Count Info Count Type Sponge, Sharps, Instrument, Miscellaneous Counts Verification Baseline/pre-procedure Sequence Count Results Not Applicable Counts Performed By Count Performed By HOLDEN DOWNING (Scrub) Count Performed By Catalina Thompson Rn (RN) Patient Care Bedside Last Modified By: Sweta [place] RN 06/12/18 07:30:14 [facility] IntraOp Counts Final Entry 1 Procedure Colon Resection Robotic(Right) Final Count Info Count Type Sponge, Sharps, Miscellaneous Counts Verification Skin Closure/end of Sequence procedure Count Results Correct, surgeon notified Counts Performed By Count Performed By HOLDEN DOWNING (Scrub) Count Performed By Catalina Thompson Rn (RN) Patient Care Bedside Last Modified By: Catalina Thompson Rn Patient Care Bedside 06/12/18 08:21:57 [facility] IntraOp Counts Final Audit 06/12/18 09:46:28 Supervisor Ore Dressing: NORBERT Modifier: MEENAKSHI 1 <*> Procedure Colon Resection Robotic(Right) 1 <+> Count Performed By (Scrub) 1 <+> Count Performed By (RN) [facility] IntraOp Cultures and Spec Summary Entry 1 Cultrures and Specimens Specimen Ordered: Yes Specimens Types Pathology Specimen(s) Labeled Pathology and Sent to Last Modified By: Catalina Thompson Rn Patient Care Bedside 06/12/18 08:21:27 [facility] IntraOp Departure from OR Entry 1 Integumentary Assessment Transfer/Handoff Transfer to PACU Phase I Handoff Method Phone call Post-op Transport Jenny/Rodney Via Patient Transport MARCIO POPE, Accompanied by MAX PARHAM KATHRYN, CRNFA Last Modified By: Sweta [place] RN 06/12/18 07:36:02 [facility] IntraOp Dressing and Packing Entry 1 Type Dressing Location OPSITE Wound Dressing Item Skin Closure Glue Applied By SHARI SANTANA CRNFA Other Comments POST OP INCISON SITE CHLORAPREP, DERMABOND, ACTICOAT 7 AND COVADERM Last Modified By: Sweta [place] RN 06/12/18 07:36:13 [facility] IntraOp Dressing and Packing Audit 06/12/18 09:48:56 Supervisor Ore Dressing: MEENAKSHI Modifier: LAFAVEHM <+> 1 Applied By [facility] IntraOp Fire Risk Assessment Entry 1 Fire Info Surgical Site or 0- No Incision Above the Xyphoid Open O2 Source 0- No (Mask or Cannula) Available Ignition 1- Yes (ESU, Laser, Light Source) Fire Risk 1 Assessment Score Fire Score Fire Risk Yes Assessment Complete Fire Risk Flynt, Catalina, Repair Weaver Verified Patient Care Bedside By Fire Risk 06/12/18 07:58:00 Assessment Verified Date/Time Fire Risk Standard Fire Yes Safety Precautions Followed Last Modified By: Sweta [place] RN 06/12/18 07:30:16 [facility] IntraOp Fire Risk Assessment Audit 06/12/18 08:18:06 Supervisor Ore Dressing: MEENAKSHI Modifier: NORBERT <+> 1 Fire Risk Assessment Verified Date/Time [facility] IntraOp General Case Rod Puller 1 Case Information OR OR 12 [facility] Case Level 1 Room Verified Yes Wound Class II - Clean-Contaminated Specialty SN General Anesthesia Type General ASA Class 3 Diagnosis Preop Diagnosis colon polyp Postop Same As Preop No Postop Diagnosis see MD post op note Last Modified By: Catalina Thompson Rn Patient Care Bedside 06/12/18 08:23:24 [facility] IntraOp General Case Data Audit 06/12/18 08:23:24 Supervisor Ore Dressing: MEENAKSHI Modifier: NORBERT <+> 1 ASA Class <+> 1 Preop Diagnosis [facility] IntraOp Intraoperative Assessment Entry 1 Handoff Method Online nursing summary Valid History / Yes Physical in Chart Preoperative Yes Checklist Reviewed/Evaluated Allergies Reviewed Yes Patient is Latex No Sensitive Isolation Not applicable Precautions Noted Level of WDL Consciousness (WDL = Alert, Oriented to Person, Place, and Time) Skin Assessment No Verified Present Upon IVs Arrival to OR Last Modified By: Sweta [place] RN 06/12/18 07:31:57 [facility] IntraOp Intraoperative Equipment Entry 1 Type Monitoring Equipment Equipment Anastacia Suction System ID Number [id number] Intraop Monitoring Antiembolic Devices Antiembolic Devices Sequential compression device, knee high Antiembolic Device Bilateral Location Antiembolic Device [id number] ID Number Antiembolic Device SCD'S ON AND WORKING Setting PRIOR TO INDUCTION Scopes Photo/Video Documentation Last Modified By: Sweta [place] RN 06/12/18 07:32:39 [facility] IntraOp Medication Admin Entry 1 Medication/Irrigant sterile water Route of irrigation Administration Dose Unit of Measure ml Administered By CHEVY TEMPLE MD-SARA Procedure Irrigation Last Modified By: Catalina Thompson Rn Patient Care Bedside 06/12/18 08:34:57 [facility] IntraOp Medication Admin Audit 06/12/18 08:34:57 Supervisor Ore Dressing: NORBERT Modifier: NORBERT 1 <*> Medication/Irrigant INDOCYANINE GREEN 25MG/VIAL 1 <+> Route of Administration [facility] IntraOp Patient Positioning Entry 1 Procedure Colon Resection Robotic(Right) Body Position Supine Left Arm Position Tucked and padded at side Right Arm Position Tucked and padded at side Left Leg Position Uncrossed, parallel Right Leg Position Uncrossed, parallel Feet Uncrossed Yes Pressure Points Yes Checked Positioning Devices Head Rest, Pad, Arm, Pad, Heel, Safety Strap, Thighs Device Position FOAM POSITIONING MATTRESS PAD Positioned By Catalina Thompson Rn Patient Care Bedside, MARCIO POPE CRNA, CHEVY TEMPLE MD-SUR, Sweta Temple, ESTEBAN, SHARI SANTANA CRNFA Position Verified Positioning Yes Verified by Anesthesia Positioning Yes Verified by Surgeon Last Modified By: Sweta Temple RN 06/12/18 07:33:00 [facility] IntraOp Sign In Entry 1 Patient, Site, Yes Procedure Identified Surgical Consent Yes Confirmed Relevant Surgical Yes Documents Available Surgical Site N/A Marked by person performing procedure Anesthesia Machine Yes Check Completed Medication Checks Yes Completed Allergies Yes Airway Difficult Yes Airway/Aspiration Risk Difficult Yes Airway/Aspiration Intervention Equipment Available Blood Loss Risk Yes Blood Loss Yes Intervention Equipment Prepared and Ready Blood Identifiers Yes Verified Per Policy Hypothermia Risk Yes Warming Measures Yes Taken Last Modified By: Sweta [place] RN 06/12/18 07:33:12 [facility] IntraOp Sign Out Entry 1 RN Confirmation Surgical Yes Procedure(s) Identified Instrument, Sponge Yes and Sharps Counts Correct/Documented Equipment Problems N/A Documented Specimen Labeled Yes Correctly Urinary Catheter N/A Documented in IView Richardson Patient Yes Recovery Concerns Reviewed with Anesthesia Provider, Surgeon and RN Richardson Patient Yes Management Concerns Reviewed with Anesthesia Provider, Surgeon and RN Safety Checklist Yes Elements Complete? RN Sign Out Catalina Thompson Rn Signature Patient Care Bedside RN Sign Out 06/12/18 10:04:00 Signature Date/Time Plan of Care Outcome - Fire Risk OUTCOME STATEMENT: Goal met Patient is free from injury related to surgical fire Plan of Care Outcome - Pt Positioning OUTCOME STATEMENT: Goal met Absence of signs and symptoms of positioning injury. Plan of Care Outcome - Skin Prep OUTCOME STATEMENT: Goal met Intraoperative care is consistent with measures to prevent infection Plan of Care Outcome - Xray/Images OUTCOME STATEMENT: N/A Absence of observable signs or symptoms of radiation injury Plan of Care Outcome - Counts OUTCOME STATEMENT: Goal met Absence of signs and symptoms of injury related to extraneous objects Last Modified By: Sweta [place] RN 06/12/18 10:03:57 [facility] IntraOp Sign Out Audit 06/12/18 10:04:56 Supervisor Ore Dressing: MEENAKSIH Modifier: MEENAKSHI <+> 1 RN Sign Out Signature Date/Time 06/12/18 10:03:57 Supervisor Ore Dressing: MEENAKSHI Modifier: MEENAKSHI <+> 1 Urinary Catheter Documented in IView [facility] IntraOp Skin Prep Entry 1 Procedure Colon Resection Robotic(Right) Prescribed Yes Pre-Surgical Prep Completed Prep Area ABDOMEN Intraop Prep Prep Agents Chloraprep Prep by Catalina Thompson Rn Patient Care Bedside Hair Removal Methods No hair removal performed Last Modified By: Sweta [place] RN 06/12/18 07:35:19 [facility] IntraOp Skin Prep Audit 06/12/18 08:33:51 Supervisor Ore Dressing: MEENAKSHI Modifier: NORBERT 1 <+> Methods 1 <*> Procedure Colon Resection Robotic(Right) [facility] IntraOp Surgical Procedures Entry 1 Procedure Colon Resection Robotic Modifiers Right Additional (ROBOTIC RT SIDE Procedure COLECTOMY, POSSIBLE Description OPEN) Primary Procedure Yes Primary Surgeon CHEVY TEMPLE MD-SARA Start 06/12/18 08:17:00 Stop 06/12/18 09:57:00 Anesthesia Type General Specialty SN General Wound Class II - Clean-Contaminated Last Modified By: Sweta [place] RN 06/12/18 07:33:04 General Comments: 2 grams Cefoxitin iv given per automotive internet sales consultant at [id number] [facility] IntraOp Surgical Procedures Audit 06/12/18 09:57:33 Supervisor Ore Dressing: NORBERT Modifier: MEENAKSHI <+> 1 Stop 06/12/18 08:22:12 Supervisor Ore Dressing: MEENAKSHI Modifier: NORBERT 1 <*> Start [facility] IntraOp Temp Regulation Devices Entry 1 Temp Regulation Temperature Forced Air Warming Regulation Device device, Irrigation solution warmer, Warm blankets Temperature 07233 Regulation Device Serial/Unit Number Temperature Upper body Regulation Site Temperature Device SET AND MONITORED BY Setting ANESTHESIA Temperature MARCIO POPE CRNA Regulation Device Applied by Last Modified By: Sweta [place] RN 06/12/18 07:35:55 [facility] IntraOP Time Out Entry 1 Procedure to be Colon Resection Performed Robotic(Right) Time Out Time Out Pause Time 06/12/18 08:17:00 All activity Yes suspended (unless life threatening emergency) Team Verbally Correct patient Confirms Information identity, Correct side and site are marked, Consent form is present and accurate, Agreement on the procedure to be done, Correct patient position, Relevant images/results properly labeled/appropriately displayed, Confirm antibiotics have been administered, Confirm the skin prep has dried, Performed in location of procedure after prepped/draped Antibiotic Yes Prophylaxis Administered Or In Progress Within the Last 60 Minutes Beta Angel N/A Administered Venous Yes Thromboembolism Prophylaxis Required Anticipated Critical Events Surgeon None expected Anesthesia Provider Patient specific concerns Nursing Assures Sterility of instruments Essential Imaging Yes Labeled and Displayed Last Modified By: Catalina Thompson Rn Patient Care Bedside 06/12/18 08:17:48 Case Comments <None> Finalized By: Catrachita Obregon, Grain Drier Operator-Business Ops-Surgery Document Signatures Signed By: Sweta Temple RN 06/12/18 10:05 Catalina Thompson Rn Patient Care Bedside 06/12/18 11:31 LEISA GROSS 06/14/18 08:32 Catrachita Obregon, Grain Drier Operator-Business Ops-Surgery 07/16/18 14:10 Unfinalized History Date/Time Username Reason for Unfinalizing Freetext Reason for Unfinalizing 06/12/18 11:31 NORBERT Documented in Error 06/14/18 08:26 WATCOURTNEY Correct Billing 07/16/18 10:55 EDGAR Chart Audit documented in this encounter Plan of Treatment Not on file documented as of this encounter Visit Diagnoses Not on filedocumented in this encounter
--- OUTSIDE RECORDS SUMMARY | 2024-12-04 09:02 | XMS_ITS | Encounter Summary ---
Author Organization [employer] ([place], [place], [place], [place]) Address [address] [place] [address] Care Team Providers Care Riding Double Name Role Phone Unavailable Primary Care Provider Unavailabl e Encounter Details Date Type Department Care Team (Late st Contact Info) Description 06/13/2018 Transcribed Document [facility] [place] [address] [place] [address] ProviderMarcela MD [address] [place] [address] Social History Tobacco Use Types [...] Conversion Note - Historical ProviderMD - 06/13/2018 10:22 AM CDT Patient: NATIVIDAD ENRIQUE Age: 53 Years Sex: Female : 1965 DISCHARGE SUMMARY - AFVSS - U/O - OK - NO COMPLAINTS EXAM: - ABD SOFT NT ND - WOUNDS ARE OK A/P: - STABLE AND DOING WELL - DC HOME - FOLLOW UP SCHEDULED - DIET DISCUSSED DIAGNOSIS: Recurrent colon Polyp documented in this encounter Plan of Treatment Not on file documented as of this encounter Visit Diagnoses Not on filedocumented in this encounter
--- OUTSIDE RECORDS SUMMARY | 2024-12-04 09:02 | XMS_ITS | Encounter Summary ---
Author Organization [employer] ([place], [place], [place], [place]) Address [address] [place] [address] Care Team Providers Care Beach Expert Name Role Phone Unavailable Primary Care Provider Unavailabl e Encounter Details Date Type Department Care Team (Late st Contact Info) Description 06/12/2018 Transcribed Document [facility] [place] [facility] [place] [address] ProviderMarcela MD [address] [place] [address] Social History Tobacco Use Types [...] Historical ProviderMD - 06/12/2018 9:55 AM CDT Care Management Assessment/Plan Entered On: 06/13/2018 13:49 EDT Performed On: 06/13/2018 13:47 EDT by CLAUDIA KENT Chute Man Care Management Note Anticipated Discharge Date : 06/13/2018 13:47 EDT Care Management Note : 53 year old female was admitted yesterday for diagnostic lap and partial right colon resection with intracorpereal anastomosis due to polyp near cecum found during colonoscopy. Pt is discharging home today with her , Stas. No needs identified. Pts RRS is LOW at 28. Documentation Status Complete : Yes CLAUDIA KENT Chute Man - 06/13/2018 13:47 EDT Discharge Planning Details Discharge Home : Home with spouse/significant other Home Caregiver Name/Relationship : Stas Juarez/ Home Caregiver Discharge Placement Needs : Home Persons Assisting Patient at Home : Spouse CLAUDIA KENT, Chute Man - 06/13/2018 13:47 EDT Final Discharge Disposition Note-CM Discharge To Care Management : Home/Residential/Snf or Self Care -01 CLAUDIA KENT, Chute Man - 06/13/2018 13:47 EDT Electronically signed by [facility] Conversion Learning Development Specialist Cerner at 07/09/2022 8:46 AM CDT documented in this encounter Plan of Treatment Not on file documented as of this encounter Visit Diagnoses Not on filedocumented in this encounter
--- OUTSIDE RECORDS SUMMARY | 2024-12-04 09:02 | XMS_ITS | Encounter Summary ---
Author Organization [employer] ([place], [place], [place], [place]) Address [address] [place] [address] Care Team Providers Care Senior Grant Writer Name Role Phone Unavailable Primary Care Provider Unavailabl e Encounter Details Date Type Department Care Team (Late st Contact Info) Description 06/12/2018 Transcribed Document [facility] [place] Family Medicine Formerly [facility] [place] [address] ProviderMarcela MD [address] [place] [id number] Social History Tobacco Use Types Packs/Day [...] ProviderMD - 06/12/2018 9:55 AM CDT Evaluation, Occupational Therapy Entered On: 06/13/2018 14:02 EDT Performed On: 06/13/2018 9:35 EDT by MARCIO RODRIGUEZ OTR/Joseph General Information, OT Co-treated by, OT : Physical Therapist General Information Comment, OT : Diagnosis: colon resection MARCIO RODRIGUEZ OTR/L - 06/13/2018 15:37 EDT Visit Type, OT : Initial evaluation Patient Orders : Order Date Order Ordering 06/12/2018 09:56 OT Evaluation and Treatment Ordered By: CHEVY TEMPLE MD-SARA Active Diagnoses : No Qualifying Diagnoses Admission Date : 06/12/2018 07:21 Personal Devices : Personal Devices No Devices Recorded Assistive Devices : Assistive Devices No Devices Recorded MARCIO RODRIGUEZ OTR/L - 06/13/2018 14:02 EDT General Status Patient Received Status : Sitting edge of bed Treatment Start Time : 06/13/2018 9:22 EDT Patient Left Status : Up in chair, RN/PCT informed, All needs met and within reach Treatment End Time : 06/13/2018 9:35 EDT Treatment Time : 13 Minute(s) MARCIO RODRIGUEZ OTR/L - 06/13/2018 15:37 EDT History and Environment, OT Living Situation, Therapy : Home Patient Lives With : Spouse Persons Assisting Patient at Home : Spouse Persons Providing Information : Patient Home Equipment, Therapy : None Home Setup : One story Stairs : Yes Stair Location(s) : Outside Outside Stairs, Number of Steps : 2 MARCIO RODRIGUEZ OTR/Joseph - 06/13/2018 15:37 EDT Prior LOF Bathing, OT : Independent Prior LOF Bed Mobility : Independent Prior LOF Upper Body Dressing, OT : Independent Prior LOF Lower Body Dressing, OT : Independent Prior LOF Toileting : Independent Prior LOF Transfer : Independent Prior LOF Grooming, OT : Independent Prior LOF for IADLs, OT : Independent MARCIO RODRIGUEZ OTR/Joseph - 06/13/2018 15:37 EDT Upper Extremity Right UE Active ROM : WFL Right UE Strength : WFL Left UE Active ROM : WFL Left UE Strength : WFL MARCIO RODRIGUEZ OTR/Joseph - 06/13/2018 15:37 EDT Self Care/Home Management, OT Self Feeding Assist Level, OT : Independent, complete Grooming Assist Level, OT : Independent, complete Bathing Assist Level, OT : Independent, complete Upper Body Dressing Assist Level, OT : Independent, complete Lower Body Dressing Assist Level, OT : Independent, complete Toileting Assist Level : Independent, complete MARCIO RODRIGUEZ OTR/Joseph Bashir 06/13/2018 15:37 EDT Functional Mobility Mobility Grid Sit to Stand : Rehab Complete independence Bed to Chair : Rehab Complete independence Stand to Sit : Rehab Complete independence MARCIO RODRIGUEZ OTR/Joseph - 06/13/2018 15:37 EDT Cognition Assessment, OT Orientation : Oriented x 4 MARCIO RODRIGUEZ OTR/Joseph Bashir 06/13/2018 15:37 EDT Plan of Care, OT OT Tx Plan/Goals Established w Patient : No MARCIO RODRIGUEZ OTR/Joseph Bashir 06/13/2018 15:37 EDT Treatment Note Subjective Comment : Pt agreeable Patient's Response to Treatment : Pt tolerated evaluation well Additional Objective Information : Pt sitting EOB upon arrival. Pt ambulated in room and hallway independently, no AD, no LOB. Pt returned to room, left with needs met and CL in reach. Assessment : No skilled OT needs at this time Plan for Treatment : Eval only MARCIO RODRIGUEZ OTR/L - 06/13/2018 15:37 EDT Pain Assessment Pain Score Pre-Intervention : 5 MARCIO RODRIGUEZ OTR/L - 06/13/2018 15:37 EDT Image 1 - Images currently included in the form version of this document have not been included in the text rendition version of the form. Anticipated Discharge Needs, OT/PT Anticipated Discharge to OT : Home, with family care MARCIO RODRIGUEZ OTR/L - 06/13/2018 15:37 EDT [place] OT Charges OT Eval Low Complexity : 1 MARCIO RODRIGUEZ OTR/L - 06/13/2018 15:37 EDT documented in this encounter Plan of Treatment Not on file documented as of this encounter Visit Diagnoses Not on filedocumented in this encounter
--- OUTSIDE RECORDS SUMMARY | 2024-12-04 09:02 | XMS_ITS | Encounter Summary ---
Author Organization [facility] Address [address] [id number] Care Team Providers Care Financial Accountant Name Role Phone Anatoliy Pulliam MD Primary Care Provider [phone] Reason for Visit * Reason Comments Med Refill Encounter Details Date Type Department Care Team (Late st Contact Info) Description 10/25/2024 Refill [facility] [address] [phone] Karl Yuan MD [address] [address] Systemic lupus erythematosus, unspecified SLE type, unspecified organ involvement status; High risk medication use Social History Tobacco Use Types Packs/Day Years [...] Encounter - Brittany Carpenter MA - 10/27/2024 10:15 AM EDT Rx Refill Note Requested Prescriptions Pending Prescriptions Disp Refills cyclobenzaprine (FLEXERIL) 5 MG tablet [Pharmacy Med Name: CYCLOBENZAPRINE 5 MG TABLET] 180 tablet 1 Sig: TAKE ONE TO TWO TABLETS BY MOUTH AT NIGHT NEEDED FOR MUSCLE SPASMS. Last office visit with prescribing clinician: 04/28/2024 Last telemedicine visit with prescribing clinician: Visit date not found Next office visit with prescribing clinician: 11/11/2024 Would you like a call back once the refill request has been completed: [] Yes [] No If the office needs to give you a call back, can they leave a voicemail: [] Yes [] No Rx sent, hub ok to relay Brittany Carpenter MA 10/27/24, 10:15 EDT documented in this encounter Plan of Treatment Upcoming Encounters Date Type Department Care Team (Late st Contact Info) Description 03/13/2025 8:00 AM EST Appointment [facility] DEXA [address] [phone] 03/13/2025 8:30 AM EST Office Visit [facility] [address] [phone] Faustina Obregon APRN [address] [phone] documented as of this encounter Visit Diagnoses Diagnosis Systemic lupus erythematosus, unspecified SLE type, unspecified organ involvement status High risk medication use documented in this encounter Care Teams Financial Accountant Relationship Specialty Start Date End Date Anatoliy Pulliam MD [facility] [address] [facility] [address] [place] [address] PCP - General Adolescent Medicine 08/30/23 documented as of this encounter
--- OUTSIDE RECORDS SUMMARY | 2024-12-04 09:02 | XMS_ITS | Encounter Summary ---
Author Organization [employer] ([place], [place], [place], [place]) Address [address] [place] [address] Care Team Providers Care Compounder Flavorings Name Role Phone Unavailable Primary Care Provider Unavailabl e Encounter Details Date Type Department Care Team (Late st Contact Info) Description 06/12/2018 Transcribed Document [facility] [place] [facility] [address] ProviderMarcela MD [address] [place] [address] Social History Tobacco Use Types [...] Conversion Note - Marcela ProviderMD - 06/12/2018 9:50 AM CDT DATE OF PROCEDURE: PREOPERATIVE DIAGNOSIS(ES): Cecal right colon polyp, recurrent. POSTOPERATIVE DIAGNOSIS(ES): Cecal right colon polyp, recurrent. PROCEDURE: Diagnostic laparoscopy and partial right colon resection with intracorporeal anastomosis. Partial part of procedure is robotic lymphadenectomy as well. SURGEON: Morris Anne MD ANESTHESIA: General. FLOSSER: Norma Anne COMPLICATIONS: None. INDICATIONS FOR PROCEDURE: Ms. Juarez is a 53-year-old woman, who underwent a colonoscopy and was found have a polyp near the cecum. This was removed and returned and a repeat endoscopy in three weeks identified recurrence. She is here for surgical removal. DESCRIPTION OF PROCEDURE: The patient was taken to operating room, placed in supine position. After successful induction of general anesthesia, was prepped and draped in usual sterile fashion. Supraumbilical incision made, Veress needle placed. Abdomen insufflated with CO2. Trocar was placed in usual fashion and the patient was then positioned. Robot was then docked. The right colon was mobilized along the white line of Toldt. The small bowel was mobilized down proximally to the terminal ileum to pass the terminal ileum. At this time, Endo-ALVARO was fired across the bowel distal to the tattooed rex by about 3 cm to ensure a good margin as well as proximal to the ileocecal valve by about 10 cm. At this time, a robotic lymphadenectomy was performed using EnSeal device along the mesentery technique include the lymph nodes draining this portion of the colon. Once the specimen and mesentery resected, it was placed in the left upper quadrant. A vjes-bx-pwex stapled anastomosis was performed using a 60 mm Endo-ALVARO. It was completed using Endo-ALVARO and the mesenteric rent was closed using a running 3-0 Vicryl stitches and remnants were removed from the abdomen. Incision was made in the left upper quadrant. Over the left upper quadrant trocar, incision was extended, allowed us to remove the specimen. The wounds were then closed using #1 PDS on the anterior posterior fascial layers. Subcutaneous tissue, subdermal was closed using 3-0 Vicryl. Skin was closed using Monocryl. Sterile and restage with chlorhexidine. Dermabond was then placed and sterile silver dressing was then placed. Wounds cleaned. Dressing was placed. All sponge and needle counts were correct x2. Morris Anne M.D. Dict: 06/12/2018 09:50:55 Trans: 06/12/2018 12:26:42 CC1: Morris Anne M.D. documented in this encounter Plan of Treatment Not on file documented as of this encounter Visit Diagnoses Not on filedocumented in this encounter
--- OUTSIDE RECORDS SUMMARY | 2024-12-04 09:02 | XMS_ITS | Encounter Summary ---
Author Organization [employer] ([place], [place], [place], [place]) Address [address] [place] [address] Care Team Providers Care Supervisor Production Managing Name Role Phone Unavailable Primary Care Provider Unavailabl e Encounter Details Date Type Department Care Team (Late st Contact Info) Description 06/13/[address] [facility] [place] Family Medicine [address] [place] [address] ProviderMarcela MD [address] [place] [address] Social History Tobacco Use Types [...] Conversion Note - Historical ProviderMD - 06/13/2018 5:00 AM CDT Chart Check - Review Order Profile Entered On: 06/13/2018 4:43 EDT Performed On: 06/13/2018 5:00 EDT by Stephanie Pritchett Chart Check Chart Reviewed Date and Time : 06/13/2018 4:43 EDT Powerplans Initiated/Discontinued as Appropriate : Yes All Active Orders Reviewed : Yes Stephanie Pritchett - 06/13/2018 4:43 EDT documented in this encounter Plan of Treatment Not on file documented as of this encounter Visit Diagnoses Not on filedocumented in this encounter
--- OUTSIDE RECORDS SUMMARY | 2024-12-04 09:02 | XMS_ITS | Encounter Summary ---
Author Organization [facility] Address [address] [phone] Care Team Providers Care Member Service Representative Name Role Phone Anatoliy Pulliam MD Primary Care Provider [phone] Reason for Visit * Reason Comments Med Refill Encounter Details Date Type Department Care Team (Late st Contact Info) Description 11/27/2024 Refill [facility]HE[facility] [address] [phone] Karl Yuan MD [address] [place] [address] Social History Tobacco Use Types Packs/Day Years [...] Telephone Encounter - Brittany Carpenter MA - 11/27/2024 9:02 AM EDT Rx Refill Note Requested Prescriptions Pending Prescriptions Disp Refills omeprazole (priLOSEC) 40 MG capsule [Pharmacy Med Name: OMEPRAZOLE DR 40 MG CAPSULE] 180 capsule 0 Sig: TAKE 1 CAPSULE BY MOUTH 2 TIMES A DAY BEFORE A MEAL Last office visit with prescribing clinician: 11/11/2024 Last telemedicine visit with prescribing clinician: Visit date not found Next office visit with prescribing clinician: 03/13/2025 Would you like a call back once the refill request has been completed: [] Yes [] No If the office needs to give you a call back, can they leave a voicemail: [] Yes [] No Declining this request. New rx was sent upon request on 11/13/24. HUB OK TO RELAY Brittany Carpenter MA 11/27/24, 09:02 EDT documented in this encounter Plan of Treatment Upcoming Encounters Date Type Department Care Team (Late st Contact Info) Description 03/13/2025 8:00 AM EST Appointment [facility] DEXA [address] [phone] 03/13/2025 8:30 AM EST Office Visit [facility] [address] [phone] Faustina Obregon APRN [address] [phone] documented as of this encounter Visit Diagnoses Not on filedocumented in this encounter Care Teams Member Service Representative Relationship Specialty Start Date End Date Anatoliy Pulliam MD [address] [facility] [address] [facility] [address] [place] [address] PCP - General Adolescent Medicine 08/30/23 documented as of this encounter
--- OUTSIDE RECORDS SUMMARY | 2024-12-04 09:02 | XMS_ITS | Encounter Summary ---
Author Organization [facility] Address [address] [phone] Care Team Providers Care Extension Service Specialist Name Role Phone Anatoliy Pulliam MD Primary Care Provider [phone] Encounter Details Date Type Department Care Team (Late Contact Info) Description 07/22/2024 Results Follow-Up [facility] RHEUMATOLOGY [address] [phone] Nakia Cotton APRN [address] [phone] Social History Tobacco Use Types Packs/Day Years [...] Encounters Date Type Department Care Team (Late Contact Info) Description 03/13/2025 8:00 AM EST Appointment [facility]HEUMATOLOG[facility] DEXA [address] [phone] 03/13/2025 8:30 AM EST Office Visit [facility] [address] [phone] Faustina Obregon APRN [address] [phone] documented as of this encounter Visit Diagnoses Not on filedocumented in this encounter Care Teams Extension Service Specialist Relationship Specialty Start Date End Date Anatoliy Pulliam MD [address] [facility] [address] [phone] PCP - General Adolescent Medicine 08/30/23 documented as of this encounter
--- OUTSIDE RECORDS SUMMARY | 2024-12-04 09:03 | XMS_ITS | Encounter Summary ---
Author Organization [employer] ([place], [place], [place], [place]) Address [address] [place] [address] Care Team Providers Care Title Supervisor Name Role Phone Unavailable Primary Care Provider Unavailabl e Encounter Details Date Type Department Care Team (Late st Contact Info) Description 06/05/[address] [facility] [place] Family Medicine [facility] [place] [address] ProviderMarcela MD [address] [place] [address] Social History Tobacco Use Types [...] Cerner Conversion Note - Historical ProviderMD - 06/05/2018 10:30 AM CDT PAT Adult Entered On: 06/05/2018 10:36 EDT Performed On: 06/05/2018 10:30 EDT by MUNA HI RN Vital Measurements Temperature Source : Temporal artery scanning Temperature Mode : Fahrenheit Temperature, Fahrenheit : 98.2 Deg F Clinical Temperature, C : 36.8 Deg C Peripheral Pulse Rate : 89 bpm Respiratory Rate : 18 Breaths/Min Systolic Blood Pressure : 114 mmHg Diastolic Blood Pressure : 75 mmHg Oxygen Saturation : 98 % Oxygen Therapy Mode : Room air MUNA HI RN - 06/05/2018 10:30 EDT Pain Assessment Pain Assessment : Initial assessment Pain Scale Goal : 2 Pain Scl Goal Comment : pain all over Pain Scale Used : 0-10 Scale MUNA HI RN - 06/05/2018 10:30 EDT Height and Weight, Clinical Dosing Height Source : Measured Height Entry Format : [place] Height, Feet : 5 ft(Converted to: 152 cm, 60 Inch) Height, Inches : 4 Inch(Converted to: 0 ft 4 Inch, 10.16 cm) Clinical Height : 162.56 cm Weight Source : Standing scale Weight Entry Format : [place] Clinical Dosing Weight : 81.82 kg Weight, Pounds : 180 lb Body Surface Area (BSA) : 1.87 m2 Body Mass Index : 31 kg/m2 (HI) [place] Body Weight : 54 kg MUNA HI RN - 06/05/2018 10:30 EDT Health Histories Desires Tobacco Cessation Medication : Yes MUNA HI RN - 06/05/2018 11:23 EDT Smoking Status : 10 or more cigarettes (1/2 pack or more)/day in last 30 days Smokeless Tobacco Status : Never MUNA HI RN - 06/05/2018 10:30 EDT Social History (As Of: 06/05/2018 11:23:50 EDT) Tobacco: Use in Last 12 Months: Cigarettes. Smoking Status Current every day smoker. Years of Use: 30. Packs/Tins Daily: 1. Used Tobacco, but Quit No. (Last Updated: 03/05/2015 10:34:32 EST by SAHIL WEAVER RN) 10 or more cigarettes (1/2 pack or more)/day in last 30 days Smoking Status. Never Smokeless Tobacco Status. Years of Use: 30. Packs/Tins Daily: 1.5. Second Hand Smoke Exposure: Yes. (Last Updated: 06/05/2018 10:29:42 EDT by MUNA HI, ESTEBAN) Alcohol: Alcohol Use History No. Use in Last 12 Months: Yes. Alcohol Use Frequency Socially. (Last Updated: 03/05/2015 10:34:50 EST by SAHIL WEAVER, ESTEBAN) Substance Abuse: Drug Use Hx: No. (Last Updated: 03/05/2015 10:35:01 EST by SAHIL WEAVER, ESTEBAN) Home/Environment: Lives with Significant other. Living situation: Home/Independent. (Last Updated: 03/05/2015 10:35:21 EST by SAHIL WEAVER, RN) Infectious Disease History Fever/Chills Last 48 Hours : No GERSTLE, NENA K, RN - 06/12/2018 7:45 EDT Infectious Disease History : Chicken pox/Shingles, Mumps Travel To Regions with Travel Advisories : No Travel Outside [place] Within Last 30 Days : No Contact With Traveler to Advisory Region : No Tuberculosis Symptoms : None MUNA HI RN - 06/05/2018 10:30 EDT Anesthesia/Transfusion History Family History of Anesthesia Reaction : No prior transfusion(s) Blood Transfusion Acceptable to Patient : Yes Transfusion History : No prior anesthesia Family History of Anesthesia Reaction : None MUNA HI RN - 06/05/2018 10:30 EDT Functional Assessment Functional ADL Evaluation Index EBN Bathing : Independent (2) Dressing : Independent (2) Toileting : Independent (2) Transferring Bed or Chair : Independent (2) Continence : Independent (2) Feeding : Independent (2) MUNA HI RN - 06/05/2018 10:30 EDT ADL Index Score : 12 MUNA HI RN - 06/05/2018 10:30 EDT Advance Directive Patient has Advance Directive *Q : No, patient refuses Advance Directive information MUNA HI RN - 06/05/2018 10:30 EDT Psychosocial History Do You Have a History of the Following? : Patient denies history Currently in Unsafe Situation : No Tried to Harm Yourself in the Past? : No Thoughts of Harming/Killing Yourself : No MUNA HI RN - 06/05/2018 10:30 EDT Teaching/Learning Assessment Barriers To Learning : None evident Individuals Taught : Patient Readiness to Learn : Cooperative Readiness to Learn : Explanation, Printed materials MUNA HI RN - 06/05/2018 10:30 EDT Education Topics, Periop Preadmission Perioperative Education Grid Arrival Time/Place : Verbalizes understanding CHG Preoperative Bathing/Cloths : Verbalizes understanding Falls : Verbalizes understanding Incentive Spirometry : Verbalizes understanding Infection Control : Verbalizes understanding IV's : Verbalizes understanding NPO Status/Directions : Verbalizes understanding Pain Management : Verbalizes understanding Postoperative Care Preparations : Verbalizes understanding Preprocedure Preparations : Verbalizes understanding Preprocedure Tests/Labs : Verbalizes understanding Remove Body Piercings : Verbalizes understanding Responsible Adult : Verbalizes understanding Take/Hold Medications Pre-Procedure : Verbalizes understanding MUNA HI RN - 06/05/2018 10:30 EDT Responsible Adult Contact Information : rex spouse MUNA HI RN - 06/05/2018 10:30 EDT General Info Preferred Name : natividad Eric Family/Rep/Phys Notified of Admit : No Emergency Contact #1 : rex Emergency Contact #1 Emergency Contact #1 Relationship : spouse Emergency Contact #2 : none Emergency Contact #2 Phone Number : none Emergency Contact #2 Relationship : none Information Obtained From : Patient Primary Language : Uzbek Preferred Communication Mode : Verbal Communication Barrier : None MUNA HI RN - 06/05/2018 10:30 EDT Armin Scale Armin Sensory Perception : No impairment Armin Moisture : Rarely moist Armin Activity : Walks occasionally Armin Mobility : Slightly limited Armin Nutrition : Adequate Armin Friction and Shear : No apparent problem Armin Score : 20 MUNA HI RN - 06/05/2018 10:30 EDT Sleep Apnea Risk Assmt Hx of Obstructive Sleep Apnea Diagnosis : No Snore Loudly : Yes Tired, Fatigued, or Sleepy During Day : Yes Observed Stopping Breathing During Sleep : No Have/Are Being Treated for Hypertension : No BMI Greater Than 35 kg/m2 : No Age over 50 Years Old : Yes Neck Circumference Greater Than 40 cm : No Gender Male : No STOP-BANG Sleep Apnea Risk Level Score : 3 MUNA HI RN - 06/05/2018 10:30 EDT Pain Scale Intensity : 4 MUNA HI RN - 06/05/2018 10:30 EDT Image 4 - Images currently included in the form version of this document have not been included in the text rendition version of the form. documented in this encounter Plan of Treatment Not on file documented as of this encounter Visit Diagnoses Not on filedocumented in this encounter
--- OUTSIDE RECORDS SUMMARY | 2024-12-04 09:03 | XMS_ITS | Clinical Summary ---
Author Organization [facility] Address [address] [place] [phone] Phone Care Team Providers Care Architectural Engineering Teacher Name Role Phone Unavailable Primary Care Provider Unavailabl e Allergies Active Allergy Reactions Criticality Noted Date Comments Sulfa (Sulfonamide Antibiotics) Hives Medium 07/24 Medications montelukast (SINGULAIR) 10 mg Oral Tablet Take 10 mg by mouth every evening. Active levocetirizine (XYZAL) 5 mg Oral Tablet Take 5 mg by mouth every evening. Active albuterol (PROVENTIL HFA; VENTOLIN HFA) 90 mcg/actuation Inhl HFA Aerosol Inhaler Inhale 2 Puffs into the lungs 0800, 1200, 1600, 2000. Active diclofenac (VOLTAREN) 75 mg Oral Tablet, Delayed Release (E.C.) Take 75 mg by mouth 2 times daily. Active gabapentin (NEURONTIN) 300 mg Oral Capsule Take 300 mg by mouth 3 times daily. Active HYDROCHLOROTHIAZ MARK ORAL Take 200 mg by mouth. Active omeprazole (PRILOSEC) 40 mg Oral Capsule, Delayed Release(E.C.) Take 40 mg by mouth daily. Active alendronate (FOSAMAX) 70 mg Oral Tablet Take 70 mg by mouth every 7 days. Active cyclobenzaprine (FLEXERIL) 5 mg Oral Tablet Take 5 mg by mouth 3 times daily as needed for Muscle spasms. Active methotrexate 2.5 mg Oral Tablet Take 2.5 mg by mouth once a week. Active Active Problems Problem Noted Date Diagnosed Date Mixed incontinence 08/09/2022 Surgical History Surgery Date Site/Laterality Comments COLON SURGERY colon resection Medical History Medical History Date Comments Systemic lupus erythematosus with organ system i nvolvement (HCC) Fibromyalgia Osteoarthritis Family History Medical History Relation Name Comments bladder cancer Father Relation Name Status Comments Father Social History Tobacco Use Types Packs/Day Years Used Date Smoking Tobacco: Every Day Cigarettes Comments No Sex and Gender Information Value Date Recorded Sex Assigned at Not on file Legal Sex Female 7:31 AM EST Gender Identity Not on file Sexual Orientation Not on file Obstetrics History Last Filed Vital Signs Vital Sign Reading Time Taken Comments Blood Pressure 120/80 08/09/2022 10:49 AM EDT Pulse 80 08/09/2022 10:49 AM EDT Temperature - - Respiratory Rate - - Oxygen Saturation 99% 08/09/2022 10:49 AM EDT Inhaled Oxygen Concentration - - Weight 75.5 kg (166 lb 6.4 oz) 08/09/2022 10:49 AM EDT Height - - Body Mass Index - - Plan of Treatment Health Maintenance Due Date Last Done Comments Wellness Exam Medicare 02/22/1968 Hepatitis C Screening 1983 DTaP/TDaP/Td (1 - Tdap) 02/22/1984 Hepatitis B Vaccine (1 of 3 - 19+ 3-dose series) 02/22/1984 Zoster (1 of 2) 02/22/1984 Cervical Cancer Screening 1986 Pap Smear 1986 HPV/Pap Cotest 1995 Breast Cancer Screening 2005 Cologuard 2010 Colon Cancer Screening 2010 Colonoscopy 2010 FIT 2010 Sigmoidoscopy 2010 Virtual Colonography 2010 COVID-19 Vaccine ( season) 2024 01/12/2022, 11/10/2020, 06/17/2020, Additional history exists Influenza Vaccine (#1) 2024 , 12/30/2019, 02/11/2019, Additional history exists Pneumococcal Vaccine 50+ (3 of 3 - PCV20 or PCV21) 04/20/2025 04/20/2020, 05/08/2018 Meningococcal B Vaccine Aged Out No l onger eligible based on patient's age to complete this topic Insurance [employer] MEDICARE HMO MR [employer] MEDICARE HMO MR
--- OUTSIDE RECORDS SUMMARY | 2024-12-04 09:03 | XMS_ITS | Encounter Summary ---
Author Organization [facility] Address [address] [id number] Care Team Providers Care Cyber Security Analyst Name Role Phone Anatoliy Pulliam MD Primary Care Provider [phone] Encounter Details Date Type Department Care Team (Late Contact Info) Description 07/21/2024 Results Follow-Up [facility] [address] [phone] Nakia Cotton APRN [address] [id number] Social History Tobacco Use Types Packs/Day Years [...] Info) Description 03/13/2025 8:00 AM EST Appointment [facility] [place] [address] [address] 03/13/2025 8:30 AM EST Office Visit [facility] [address] [address] Faustina Obregon APRN [address] [phone] documented as of this encounter Visit Diagnoses Not on filedocumented in this encounter Care Teams Cyber Security Analyst Relationship Specialty Start Date End Date Anatoliy Pulliam MD [address] [facility] [address] [id number] PCP - General Adolescent Medicine 08/30/23 documented as of this encounter
--- OUTSIDE RECORDS SUMMARY | 2024-12-04 09:03 | XMS_ITS | Patient Health Record ---
Author Organization [facility] JHONNY Address [address] [facility] [address] [place] [address] Care Team Providers Care Hole Puncher Strap Name Role Phone Anatoliy Cast Primary Care Provider Migration, Provider Unavailable Unavailable Allergies Allergen (clinical drug ingredient) Drug/Non Drug Allergy documented on EMR Reaction Allergy Type Onset Date Status SULFA (uncoded) Unknown Allergy Acti ve Results Component Value Reference Range Notes SCREEN MAMMO W CAD BILAT Reviewed date:10/20/2024 09:56:41 AM Interpretation: Performing Lab: Notes/Report: [address] [place] [address] Name: EUNICE JUAREZ Exam Date: 10/20/2024 : 1965 Age 59 years Gender: F Physician: ANATOLIY CAST Facility: [facility] Facility HSV: Outpatient Exam: MISAEL SCREEN MAMMO [...] Thank you for referring EUNICE JUAREZ to [facility]. Legally authenticated by GRAEME FOSTER MD 2024-10-20 09:15:00 HEMOGLOBIN A1c (496) Reviewed date:10/20/2024 11:30:30 AM Interpretation: Performing Lab:[facility]ector [address] Juan R MatuteL[address] Boby Walden Notes/Report: NON-FASTING; NON-FASTING; NON-FASTING HEMOGLOBIN [...] diagnosis of diabetes in children. According to [place] Diabetes Association (ADA) guidelines, hemoglobin A1c <7.0% represents optimal control in non- diabetic patients. Different metrics may apply to specific patient populations. Standards of Medical Care in Diabetes(ADA). COMPREHENSIVE METABOLIC PANE L (05478) Reviewed date:10/20/2024 11:30:30 AM Interpretation: Performing Lab:[facility] [employer] [facility] ([facility]-Juan R [address] [phone] Boby Walden Notes/Report: NON-FASTING; NON-FASTING; NON-FASTING GLUCOSE [...] 18 10-35 U/L ALT 11 6-29 U/L LIPID PANEL, STANDARD (7600) Reviewed date:10/20/2024 11:30:30 AM Interpretation: Performing Lab:[facility], [facility] [address] [phone] Boby Walden Notes/Report: NON-FASTING; NON-FASTING; NON-FASTING CHOLESTEROL, TOTAL 141 <200 mg/dL HDL CHOLESTEROL 62 > OR = 50 mg/dL TRIGLYCERIDES 93 <150 mg/dL LDL-CHOLESTEROL 61 Reference range: <100 Desirable range <100 mg/dL for primary prevention; <70 mg/dL for patients with CHD or diabetic patients with > or = 2 CHD risk factors. LDL-C is now calculated using the Kranthi calculation, which is a validated novel method providing better accuracy than the Friedewald equation in the estimation of LDL-C. Gray REYES et al. KHOA. 2013;310(19): 6160-1909 (http://education.The 5th Quarter.[employer]/faq/FAQ16 4) CHOL/HDLC RATIO 2.3 <5.0 (calc) NON HDL CHOLESTEROL 79 <130 mg/dL (calc) For patients with diabetes plus 1 major ASCVD risk factor, treating to a non-HDL-C goal of <100 mg/dL (LDL-C of <70 mg/dL) is considered a therapeutic option. Medications Medication SIG (Take, Route, Frequency, Duration) Notes Start Date End Date Status Gabapentin 300 MG 2 cap(s) orally qhs; Duration: 30 day(s) Active Diclofenac Sodium 75 MG 1 tab(s) orally 2 times a day for one week then b.i.d. p.r.n.; Duration: 30 day(s) Active buPROPion HCl ER (XL) 150 MG 1 tablet in the morning Orally Once a day; Duration: 90 days 07/17/2024 Active Montelukast Sodium 10 MG 1 tab(s) orally once a day; Duration: 30 day(s) Active Hydroxychloroquine Sulfate 2 00 MG 1 tab(s) orally bid Active Varenicline Tartrate 1 MG 1 tablet after eating Orally Twice a day; Duration: 90 days 10/16/2024 Active Cyclobenzaprine HCl 5 MG 1-2 tabs orally qhs Active Acetaminophen-Codeine 300-30 MG 1 tab(s) orally four times a day; Duration: 30 days 11/11/2024 Active Methotrexate 2.5 MG 6 TABS ORALLY ONCE A WEEK Active Xyzal Allergy 24HR 5 MG 1 tab(s) orally once a day (in the evening); Duration: 30 day(s) 07/23/2020 Active Ventolin HFA 108 (90 Base) MCG/ACT 2 puff(s) inhaled every 6 hours; Duration: 30 day(s) Active Stiolto Respimat 2.5 MCG-2.5 MCG/INH 2 PUFF(S) INHALED EVERY 24 HOURS Active Dicyclomine HCl 10 MG 2 cap(s) orally da praveen for abd spasm; Duration: 30 days 07/04/2022 Active Mucinex 600 MG 1 tab(s) orally ever y 12 hours Active Omeprazole 40 MG 1 cap(s) orally once a day; Duration: 90 days Active Immunizations Vaccine Route Administration Date Status Comme nts ZZ Unknown 08/28/2006 Administered ZZ Unknown 09/27/2006 Administered ZZ Unknown 10/26/2006 Administered SHINGRIX IM Intramuscular 10/18/2023 Administered SHINGRIX IM Intramuscular 01/17/2024 Administered Prevnar PCV-13 (Pneumococcal conjugate 13) IM Intramuscular 05/08/2018 Administered Pneumovax 23 IM Intramuscular 04/20/2020 Administered Pneumococcal Vaccine Unknown 05/04/2008 Administered Influenza (Fluzone)--Medicare only Unknown 12/15/2011 Administered Influenza (Fluzone)--Medicare only IM Intramuscular 01/25/2016 Administered Influenza (Fluzone)--Medicare only IM Intramuscular 12/25/2016 Administered Influenza (Fluzone)--Medicare only IM Intramuscular 12/04/2017 Administered FLUZONE 6MO - OLDER IM Intramuscular 02/11/2019 Administer ed FLUZONE 6MO - OLDER IM Intramuscular 01/04/2023 Administer ed FLUZONE 6MO - OLDER IM Intramuscular 01/17/2024 Administer ed Fluvirin--Influenza vaccine 3+ year IM Intramuscular 01/07/2007 Administered Fluvirin--Influenza vaccine 3+ year Unknown 12/28/2008 Administered Fluvirin--Influenza vaccine 3+ year Unknown 02/25/2010 Administered Flublok IM Intramuscular 12/30/2019 Administered Flublok IM Intramuscular 12/21/2020 Administered Flublok IM Intramuscular 01/10/2022 Administered Boostrix Unknown 04/28/2024 Administered Arexvy Unknown 04/28/2024 Administered Social History Tobacco Use: Social History Observation Description Date Details (start date - stop date) Current Smoker NA - NA Smoking: Question Answer Notes Are you a: current smoker How often do you smoke cigarettes? every day How many cigarettes a day do you smoke? 11-20 Problems Problem Type SNOMED Code ICD Code Onset Dates Problem Status W/U Status Risk Notes Problem Generalized anxiety disorder (75212382) Generalized anxiety disorder (F41.1) Active confirmed Problem Chronic pain syndrome (994373930) Chronic pain syndrome (G89.4) Active confirmed Problem Vasomotor rhinitis (2502024) Vasomotor rhinitis (J30.0) Active confirmed Problem Allergic rhinitis (19916544) Other allergic rhinitis (J30.89) Active confirmed Problem Age-related osteoporosis (750065748) Age-related osteoporosis without current pathological fracture (M81.0) Active confirmed Problem Nicotine dependence (74558745) Personal history of nicotine dependence (Z87.891) Active confirmed Problem Tobacco use (007587787) Tobacco use disorder (Z72.0) Active confirmed Problem Hyperlipidemia (12853338) Hyperlipemia, idiopathic familial (E78.5) Active confirmed Problem Seasonal allergy (166632623) Seasonal allergies (J30.2) Active confirmed Problem Colitis (22525861) Colitis (K52.9) Active confi rmed Problem Urge incontinence of urine (57129845) Urge incontinence of urine (N39.41) Active confirmed Problem Gastroesophageal reflux disease without esophagitis (268787444) Gastroesophageal reflux disease without esophagitis (K21.9) Active confirmed Problem COPD - Chronic obstructive pulmonary disease (51596522) Chronic obstructive pulmonary disease, unspecified COPD type (J44.9) Active confirmed Problem Body mass index 25-29 - overweight (663972010) BMI 28.0-28.9,adult (Z68.28) Active confirmed Problem Osteoarthritis (435773499) Arthritis of multiple sites (M19.90) Active confirmed Problem Raynaud's disease (566635731) Raynauds phenomenon without gangrene (I73.00) Active confirmed Problem Chronic sinusitis (93358067) Purulent postnasal drainage (J32.9) Active confirmed Problem Chronic maxillary sinusitis (46689102) Chronic sinusitis of both maxillary sinuses (J32.0) Active confirmed Problem Gastroesophageal reflux disease (disorder) (829153995) Chronic GERD (K21.9) Active confirmed Problem Adult health examination (434247512) Healthcare maintenance (Z00.00) Active confirmed Problem Irritable bowel syndrome characterized by constipation (280852475) Irritable bowel syndrome with constipation (K58.1) Active confirmed Problem Menopausal symptom (82073803) Menopausal symptoms (N95.1) Active confirmed Problem Systemic lupus erythematosus (27609643) Systemic lupus erythematosus, unspecified SLE type, unspecified organ involvement status (M32.9) Active confirmed Problem Systemic lupus erythematosus (76723530) Other systemic lupus erythematosus with other organ involvement (M32.19) Active confirmed Problem Long-term current use of drug therapy (597112361) 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) Active confirmed Problem Systemic lupus erythematosus with lung involvement, unspecified SLE type (M32.13) Active confirmed Vital Signs Heart Rate 82 /min 10/16/2024 Temperature 97.9 degrees Fahrenheit 10/16/2024 Blood pressure diastolic 72 mm Hg 10/16/2024 Height 5 ft 3.5 in in 10/16/2024 Blood pressure systolic 118 mm Hg 10/16/2024 Weight 157 lbs 10/16/2024 BMI 27.37 kg/m2 10/16/2024 Encounters Encounter Location Date Provider Diagnosis [facility] [address] [place] [address] 06/28/2024 Provider Migration Arthritis of multiple sites M19.90 and Irritable bowel syndrome with constipation K58.1 [facility] [address] [address] 01/17/2024 Anatoliy Besson Raynauds phenomenon without gangrene I73.00 ; Arthritis of multiple sites M19.90 ; Systemic lupus erythematosus, unspecified SLE type, unspecified organ involvement status M32.9 ; Hyperlipemia, idiopathic familial E78.5 ; Personal history of nicotine dependence Z87.891 ; Routine medical exam Z00.00 and Encounter for immunization Z23 [facility] [address] [address] 04/17/2024 Anatoliy Besson Raynauds phenomenon without gangrene I73.00 ; Tobacco use disorder Z72.0 ; Chronic pain syndrome G89.4 ; Systemic lupus erythematosus, unspecified SLE type, unspecified organ involvement status M32.9 ; Immunosuppression due to drug therapy Z79.899 ; Other allergic rhinitis J30.89 ; Chronic GERD K21.9 and Routine medical exam Z00.00 [facility] [address] [address] 07/17/2024 Anatoliy Cast Irritable bowel synd patricia with constipation K58.1 ; Arthritis of multiple sites M19.90 ; Systemic lupus erythematosus, unspecified SLE type, unspecified organ involvement status M32.9 and Personal history of nicotine dependence Z87.[address] [address] 10/16/2024 Anatoliy Cast Personal history of nicotine dependence Z87.891 ; Hyperlipemia, idiopathic familial E78.5 ; Family history of diabetes mellitus Z83.3 ; Chronic obstructive pulmonary disease, unspecified COPD type J44.9 ; Seasonal allergies J30.2 ; Screening mammogram, encounter for Z12.31 and Routine medical exam Z00.00 [facility] [address] [address] 12/13/2023 Anatoliy Besson [facility] [address] [address] 02/20/2024 Anatoliy Besson Arthritis of multipl e sites M19.90 [facility] [address] [address] 03/27/2024 Anatoliy Besson Arthritis of multipl e sites M19.90 [facility] [address] [address] 04/29/2024 Anatoliy Besson Irritable bowel synd patricia with constipation K58.1 and Arthritis of multiple sites M19.90 [facility] [address] [place] [address] 04/30/2024 Anatoliy Besson Arthritis of multipl e sites M19.90 and Irritable bowel syndrome with constipation K58.1 [facility] [address] [place] [address] 06/02/2024 Anatoliy Besson Arthritis of multipl e sites M19.90 [facility] [address] [address] 07/01/2024 Anatoliy Besson Arthritis of multipl e sites M19.90 [facility] [address] [address] 07/03/2024 Anatoliy Besson Arthritis of multipl e sites M19.90 [facility] [address] [place] [address] 08/01/2024 Anatoliy Besson Arthritis of multipl e sites M19.90 [facility] [address] [address] 09/03/2024 Anatoliy Besson Arthritis of multipl e sites M19.90 [facility] [address] [address] 10/03/2024 Anatoliy Besson Arthritis of multipl e sites M19.90 [facility] [address] [address] 11/11/2024 Anatoliy Besson Arthritis of multipl e sites M19.90 Assessments Encounter Date Diagnosis (ICD Code) Assessment Notes Treatment Notes Treatment Clinical Notes Section Notes 02/20/2024 Arthritis of multiple sites (ICD-10 - M19.90) 03/27/2024 Arthritis of multiple sites (ICD-10 - M19.90) 01/17/2024 Arthritis of multiple sites (ICD-10 - M19.90) Follows with rheumatology, on Tylenol 3, has been compliant with controlled substance issues 01/17/2024 Raynauds phenomenon without gangrene (ICD-10 - I73.00) Seems to be well-controlled with aspirin and good blood pressure control and calcium channel blockers. No changes in plan, no evidence of digit damage. Discussed continuing to keep extremities warm with the onset of colder weather 04/17/2024 Tobacco use disorder (ICD-10 - Z72.0) Continues to smoke 1 ppd. UTD on LDCT chest. Repeat due 10/2024. 04/17/2024 Raynauds phenomenon without gangrene (ICD-10 - I73.00) Chronic, controlled. Stopped ASA. No new ulcers. 04/29/2024 Irritable bowel syndrome with constipation (ICD-10 - K58.1) 04/30/2024 Arthritis of multiple sites (ICD-10 - M19.90) 06/02/2024 Arthritis of multiple sites (ICD-10 - M19.90) 06/28/2024 Arthritis of multiple sites (ICD-10 - M19.90) 07/01/2024 Arthritis of multiple sites (ICD-10 - M19.90) 07/03/2024 Arthritis of multiple sites (ICD-10 - M19.90) 07/17/2024 Arthritis of multiple sites (ICD-10 - M19.90) Patient has been compliant with our office and [place] regulations r.e. meds. No concerns on my part about diversion or misuse. Labs and Chinedu reports reviewed and are appropriate. 07/17/2024 Irritable bowel syndrome with constipation (ICD-10 - K58.1) Overall stable. Uses dicyclomine as needed. No changes in plans 09/03/2024 Arthritis of multiple sites (ICD-10 - M19.90) 10/03/2024 Arthritis of multiple sites (ICD-10 - M19.90) 11/11/2024 Arthritis of multiple sites (ICD-10 - M19.90) 10/16/2024 Personal history of nicotine dependence (ICD-10 [...] (ICD-10 - E78.5) - Repeat lipid panel 08/01/2024 Arthritis of multiple sites (ICD-10 - M19.90) 10/16/2024 Family history of diabetes mellitus (ICD-10 - Z83.3) - Check A1C 07/17/2024 Systemic lupus erythematosus, unspecified SLE type, unspecified organ involvement status (ICD-10 - M32.9) Follows with rheumatology, labs have been normal. Follow-up in 3 months for wellness exam and reevaluation of labs with me 06/28/2024 Irritable bowel syndrome with constipation (ICD-10 - K58.1) 04/30/2024 Irritable bowel syndrome with constipation (ICD-10 - K58.1) 01/17/2024 Systemic lupus erythematosus, unspecified SLE type, unspecified organ involvement status (ICD-10 - M32.9) Follows rheumatology, on medications and lab monitoring has been appropriate 04/29/2024 Arthritis of multiple sites (ICD-10 - M19.90) 04/17/2024 Chronic pain syndrome (ICD-10 - G89.4) Pain secondary to RA and SLE. Continue tramadol, cyclobenzaprine, and diclofenac as needed. 01/17/2024 Hyperlipemia, idiopathic familial (ICD-10 - E78.5) Reviewed previous medications 04/17/2024 Systemic lupus erythematosus, unspecified SLE type, unspecified organ involvement status (ICD-10 - M32.9) Chronic, stable. Follows with rheum, f/u 04/2024. Continue hydroxyxhloroquine and methotrexare. 07/17/2024 Personal history of nicotine dependence (ICD-10 - Z87.891) Spent greater than 5 minutes discussing smoking cessation. Trial of going to half a pack a day with a visible plastic bag to hopefully self taper. Discussed trial of Wellbutrin. She is willing to do this. 10/16/2024 Chronic obstructive pulmonary disease, unspecified COPD type (ICD-10 - J44.9) 10/16/2024 Seasonal allergies (ICD-10 - J30.2) - Refill singular and Xyzal for allergies 04/17/2024 Immunosuppression due to drug therapy (ICD-10 - Z79.899) Methotrexate and hydroxyxhloroquine per above. UTD on labs and eye exams. 01/17/2024 Personal history of nicotine dependence (ICD-10 - Z87.891) Discussed smoking cessation once again, discussed risk to her health especially with Raynaud's and COPD issues. She follows with pulmonary who gives for the same messages. Up-to-date with low-dose CT scans. 01/17/2024 Routine medical exam (ICD-10 - Z00.00) Up-to-date with cancer screenings as noted. Tobacco cessation discussed. Functional status excellent. No evidence of cognitive impairment. Nondiabetic. Vaccines now up-to-date with completion of Shingrix and flu shot for this season 04/17/2024 Other allergic rhinitis (ICD-10 - J30.89) Chronic, controlled. Continue montelukast and xyzal. Given right ear effusion, discussed starting back intranasal steroids. 10/16/2024 Screening mammogram, encounter for (ICD-10 - Z12.31) 10/16/2024 Routine medical exam (ICD-10 - Z00.00) - No memory concerns, was able to recall 3 words - No recent falls, feels safe at home - Vaccines UTD, will do pneumonia shot after age 60 - Gets Dexa scans through [facility] - Colonscopy scheduled this fall with history of partial colectomy - Due for mammogram, referral placed 04/17/2024 Chronic GERD (ICD-10 - K21.9) Chronic, controlled. Continue omeprazole 40 mg. 01/17/2024 Encounter for immunization (ICD-10 - Z23) 04/17/2024 Routine medical exam (ICD-10 - Z00.00) UTD on cancer screening. Repeat c-scope due 10/2024, will discuss scheduling at next visit. Plan Of Treatment Pending Test Test Name Order Date N-CBC 10/04/2009 N-CBC 05/04/2008 N-Sed Rate 02/26/2007 N-Urine Culture and Sensitivity 01/03/20 07 N-Urine Culture and Sensitivity 08/09/19 07 Urinalysis 08/08/2006 Urinalysis 01/14/2007 Urinalysis 07/13/2010 N-NICO (Antinuclear Antibody) 01/02/2007 Rapid Strep 11/08/2007 H-CRP 01/02/2007 N-CMP 05/04/2008 N-CMP 07/22/2008 N-CMP 10/04/2009 N-cbc 02/26/2007 Physical Therapy 01/05/2009 N-Rheumatoid Factor 01/02/2007 Mammogram : Bilateral 07/31/2017 Mammogram : Bilateral 01/04/2023 Y-hisn-ezwcxhf anti boidies 12/18/2007 C-URINE CULTURE 03/01/2020 C-URINE CULTURE 09/06/2010 Urine Culture, Routine 04/06/2022 Future Test Test Name Order Date N-CBC 10/31/2007 N-CMP 10/31/2007 Next Appt Details Provider Name:Anatoliy Kyle Cast, 01/15/2025 09:30:00 AM, [address] [place] [address], [phone], Insurance Providers Payer Name Payer Address Payer Phone Subscriber Number Group Number Insured Name Patient Relationship to Insured Coverage Start Date Coverage End Date [employer] [address] [address] [place] [phone] [id number] Eunice Juarez Self - patient is the insured 0 Medications Administered Medication Instructions Date of Administration Dosage Notes Ceftriaxone 500 12/02/2012 500 mg Depo-Provera 02/19/2006 1 mL Depo-Provera 06/01/2006 Depo-Provera 08/28/2006 1 mL Dexamethasone 4mg Injection 08/09/2021 4 mg Dexamethasone 4mg Injection 11/20/2023 4 mg Triamcinolone Acetonide 40mg Injection 01/08/2018 1 mL Triamcinolone Acetonide 40mg Injection 02/17/2020 1 mL Triamcinolone Acetonide 40mg Injection 07/23/2020 1 mL Kenalog 12/02/2012 1 Kenalog 11/11/2013 1 Medical (General) History Medical History History ICD Code Recurrent UTI Hypertension Esophageal reflux colitis with GI bleeding diagnosed Decem 2014 colonoscopy March 2015 - repeated 12/16 with isolated hyperplastic polyp mild osteopenia on DEXA scan 2013 - donnell re osteoporosis on DEXA 10/2017 Colonoscopy 2017, large poly p, repeat Mar 2018 with recurrent polyps and resection recommended SLE (skin biopsy 2006, start ed plaquenil) + NICO, systemic symptoms with raynauds, SICCA. Now also on MTX Osteoarthritis, multiple joints Chronic allergies Generalized anxiety Tobacco use chronic opioid therapy, appropriate UDS 05/16 Birads 2 LDCT 08/14 - 12 month f/u recomm ended. Normal Mammogram 03/2022 and 09/2027 LGSIL on pap/colposcopy 05/18 - follows w bessy Rios Surgical History Surgery Date(Month/Year) colonoscopy 12/2017 right colon resection for recurrent ceca l polyp 06/11
--- OUTSIDE RECORDS SUMMARY | 2024-12-04 09:03 | XMS_ITS | Encounter Summary ---
Author Organization [employer] ([place], [place], [place], [place]) Address [address] [place] [address] Care Team Providers Care Cnc Manager Name Role Phone Unavailable Primary Care Provider Unavailabl e Encounter Details Date Type Department Care Team (Late st Contact Info) Description 06/18/2018 Transcribed Document [facility] [place] [facility] [place] [address] ProviderMarcela MD [address] [place] [address] Social History Tobacco Use Types Packs/Day Years Used Date Smoking Tobacco: Never Assessed Comments Unknown Sex and Gender Information Value Date Recorded Sex Assigned at Female 09/21/2021 11:58 AM CDT Legal Sex Female 6:30 PM CDT Gender Identity Female 09/21/2021 11:58 AM CDT Sexual Orientation Not on file documented as of this encounter Miscellaneous Notes * [facility] Conversion Note - Historical ProviderMD - 06/18/2018 11:18 AM CDT Post Visit Phone Call Entered On: 06/18/2018 11:21 EDT Performed On: 06/18/2018 11:18 EDT by Arlene Navarro Rn Post Visit Phone Call Post Visit Phone Call History : First call, Second call, No answer Emergency Room Visit Since [place] : No Adequate Pain Control After Visit : Yes Surgical Dressing Clean/Dry/Intact : Yes Surgical Site Free of Redness/Swelling/Drainage : Yes Symptoms of Fever : No Symptoms of Nausea or Vomiting : No Adequate Fluid Intake : Yes Food Intake, Post Visit : Good Bowel/Bladder Concerns : No Mobility Progressing or Maintained as Expected : Yes Discharge Instructions Understood : Yes Follow-Up Actions : None Arlene Navarro Rn - 06/18/2018 11:18 EDT Electronically signed by Philly [facility] Conversion Electronic Funds Transfer Coordinator Cerner at 07/09/2022 8:49 AM CDT documented in this encounter Plan of Treatment Not on file documented as of this encounter Visit Diagnoses Not on filedocumented in this encounter
--- OUTSIDE RECORDS SUMMARY | 2024-12-04 09:03 | XMS_ITS | Referral Summary ---
Author Organization [employer] ([place], [place], [place], [place]) Address [address] [place] [address] Care Team Providers Care Process Development Manager Name Role Phone Unavailable Primary Care [...]
--- OUTSIDE RECORDS SUMMARY | 2024-12-04 09:03 | XMS_ITS | Encounter Summary ---
Author Organization [employer] ([place], [place], [place], [place]) Address [address] [place] [address] Care Team Providers Care Skelp Processor Name Role Phone Unavailable Primary Care Provider Unavailabl e Encounter Details Date Type Department Care Team (Late st Contact Info) Description 06/05/2018 Transcribed Document [facility] [place] [facility] [place] [address] ProviderMarcela MD [address] [place] [address] Social History Tobacco Use Types [...] Conversion Note - Historical ProviderMD - 06/05/2018 3:22 PM CDT Event Note Entered On: 06/05/2018 15:43 EDT Performed On: 06/05/2018 15:22 EDT by MUNA HI RN Event Note Description of Event : last dose of methrotrexate was june 03. called [facility], DR. Yuan//states okay to have surgery and continue plaquinel. pt. not to resume methrotrexate for 2 weeks after surgery and no S/S of infection and incision healed. Pt. was instructed.. verbalized understanding...DR. Anne notified... MUNA HI, RN - 06/05/2018 15:22 EDT Electronically signed by Philly [facility] Conversion Technical Internship Andrew at 07/09/2022 8:28 AM CDT documented in this encounter Plan of Treatment Not on file documented as of this encounter Visit Diagnoses Not on filedocumented in this encounter
--- NOTE | 2024-12-04 09:15 | CT_ITS ---
FINAL REPORT TECHNIQUE: Thin section axial images were obtained through the lungs using a low-dose technique per lung cancer screening protocol. Reconstruction images were obtained using the axial data. This study was performed with techniques to keep radiation doses as low as reasonably achievable, (ALARA). Individualized dose reduction techniques using automated exposure control or adjustment of mA and/or kV according to the patient's size were employed. CLINICAL HISTORY: lung cancer screening smoker, 1/2 ppd x 30 years COMPARISON: 11/02/2023 FINDINGS: CTDLvol: 2.90 DLP: 100.03 Current smoker 15 pack year history There are advanced changes of centrilobular emphysema. There is evidence of prior granulomatous disease. The previously seen left lower lobe nodule is now calcified on today's exam. There is a nodular density in the right middle lobe that measures 7 mm. This is best seen on series 4 image 59 and previously measured 7 mm. No new nodules or masses are seen. Multiple small mediastinal lymph nodes are unchanged. There is no pleural or pericardial effusion. There are prominent coronary artery calcifications. Limited images of the upper abdomen demonstrate no acute abnormality. IMPRESSION: Stable right middle lobe nodule. Previously seen left lower lobe nodule now demonstrates calcification. Prominent coronary artery calcifications. Lung RADS: 2S Recommendation: 12-month follow-up low-dose chest CT per Fleischner's criteria Reviewed, Interpreted and Dictated by Tiffanie Serna MD Transcribed by Sarah Richards Authenticated and [facility]
== END 2024-12-04 23:59 | disposition home or self-care (01) ==
LOC: RAD 08:48
PROVIDERS: PCP Internal Medicine Adolescent Medicine; Visit Provider Internal Medicine Pulmonary Disease
DX: I25.10 Atherosclerotic heart disease of native coronary artery without angina pectoris (principal); R91.8 Other nonspecific abnormal finding of lung field; Z12.2 Encounter for screening for malignant neoplasm of respiratory organs; F17.210 Nicotine dependence, cigarettes, uncomplicated
CPT/HCPCS: 71271

== ENCOUNTER → 2025-01-04 20:15 | Outpatient (CLI) | payer MEDICARE, SELFPAY ==
--- OUTSIDE RECORDS SUMMARY | 2024-06-28 17:30 | XMS_ITS ---
Author Organization [facility] Address [address] [facility] [address] [place] [address] Care Team Providers Care Veterinary Medicine Scientist Name Role Phone Anatoliy Pulliam Primary Care Provider Migration, Provider Unavailable Unavailable Allergies Allergen (clinical drug ingredient) Drug/Non Drug Allergy documented on EMR Reaction Allergy Type Onset Date Status SULFA (uncoded) Unknown Allergy Acti ve REASON FOR VISIT [facility] Encounter Medications Medication SIG (Take, Route, Frequency, Duration) Notes Start Date End Date Status Xyzal Allergy 24HR 5 MG 1 tab(s) orally once a day (in the evening); Duration: 30 day(s) 07/23/2020 Active Ventolin HFA 108 (90 Base) MCG/ACT 2 puff(s) inhaled every 6 hours; Duration: 30 day(s) Active Methotrexate 2.5 MG 6 TABS ORALLY ONCE A WEEK *Please review and pick correct strength-formulat ion from [facility] options. If intended option is not shown, discontinue and re-order from Quick Search* Active Cyclobenzaprine HCl 5 MG 1-2 tabs orally qhs Active Acetaminophen-Codeine 300-30 MG 1 tab(s) orally four times a day; Duration: 30 days 06/02/2024 Active Omeprazole 40 MG 1 cap(s) orally once a day; Duration: 90 days Active Vitamin D3 50 MCG (2000 UT) 1 tab(s) orally once a day; Duration: 30 day(s) Active Montelukast Sodium 10 MG 1 tab(s) orally once a day; Duration: 30 day(s) Active Hydroxychloroquine Sulfate 200 MG 1 tab(s) orally bid Active Gabapentin 300 MG 2 cap(s) orally qhs; Duration: 30 day(s) Active Stiolto Respimat 2.5 MCG-2.5 MCG/INH 2 PUFF(S) INHALED EVERY 24 HOURS *Please review and pick correct strength-formulat ion from [employer] options. If intended option is not shown, discontinue and re-order from Quick Search* Active Mucinex 600 MG 1 tab(s) orally every 12 hours Active Dicyclomine HCl 10 MG 2 cap(s) orally daily for abd spasm; Duration: 30 days 07/04/2022 Active Diclofenac Sodium 75 MG 1 tab(s) orally 2 times a day for one week then b.i.d. p.r.n.; Duration: 30 day(s) Active Encounters Encounter Location Date Provider Diagnosis [facility] [address] [place] [address] 06/28/2024 Provider Migration Arthritis of multipl e sites M19.90 and Irritable bowel syndrome with constipation K58.1 Assessments Encounter Date Diagnosis (ICD Code) Assessment Notes Treatment Notes Treatment Clinical Notes Section Notes 06/28/2024 Arthritis of multiple sites (ICD-10 - M19.90) 06/28/2024 Irritable bowel syndrome with constipation (ICD-10 - K58.1) Plan Of Treatment Medication Medication Name Sig Start Date Stop Date Notes Acetaminophen-Codeine 300-30 MG 1 tab(s) orally four times a day; Duration: 30 days 06/02/2024 Omeprazole 40 MG 1 cap(s) orally once a day; Duration: 90 days Dicyclomine HCl 10 MG 2 cap(s) orally da praveen for abd spasm; Duration: 30 days 07/04/2022 Next Appt Details Provider Name:Anatoliy Pulliam, 01/15/2025 09:30:00 AM, [address] [place] [address], [phone], Progress Notes * Natividad JUAREZ EDOB:1964 (59 yo F)Acc No.[id number]:06/28/2024 Patient: Natividad PROCTOR Provider: Stone bustillo Migration :1965 A ge:59 Y S ex:Female Date:06/28/2024 Address:[address] [place], [place] [id number] Pcp:Anatoliy Pulliam Subjective: * Chief Complaints: * 1 . [facility] Conversion Encounter. * Medical History: * Medications: T aking Mucinex 600 MG Tablet Extended Release 12 Hour 1 tab(s) orally every 12 hours , Taking Stiolto Respimat 2.5 MCG-2.5 MCG/INH AEROSOL 2 PUFF(S) INHALED EVERY 24 HOURS , Notes to Pharmacist: *Please review and pick correct strength-formulation from [employer] options. If intended option is not shown, discontinue and re-order from Quick Search*, Taking Diclofenac Sodium 75 MG Tablet Delayed Release 1 tab(s) orally 2 times a day for one week then b.i.d. p.r.n. , Taking Gabapentin 300 MG Capsule 2 cap(s) orally qhs , Taking Hydroxychloroquine Sulfate 200 MG Tablet 1 tab(s) orally bid , Taking Montelukast Sodium 10 MG Tablet 1 tab(s) orally once a day , Taking Vitamin D3 50 MCG (2000 UT) Tablet 1 tab(s) orally once a day , Taking Cyclobenzaprine HCl 5 MG Tablet 1-2 tabs orally qhs , Taking Methotrexate 2.5 MG TABLET 6 TABS ORALLY ONCE A WEEK , Notes to Pharmacist: *Please review and pick correct strength-formulation from [employer] options. If intended option is not shown, discontinue and re-order from Quick Search*, Taking Ventolin HFA 108 (90 Base) MCG/ACT Aerosol Solution 2 puff(s) inhaled every 6 hours , Taking Xyzal Allergy 24HR 5 MG Tablet 1 tab(s) orally once a day (in the evening) * Allergies: S ULFA. Objective: * Vitals: Assessment: * Assessment: 1. A rthritis of multiple sites - M19.90 2 . I rritable bowel syndrome with constipation - K58.1 Plan: * Treatment: 2. I rritable bowel syndrome with constipation Refill Dicyclomine HCl Capsule, 10 MG, 2 cap(s), orally, daily for abd spasm, 30 days, 25, Refills 1. 3. O thers Refill Omeprazole Capsule Delayed Release, 40 MG, 1 cap(s), orally, once a day, 90 days, 90 Capsule, Refills 3. * * Electronic signature of Prov ider Migration on 01/04/2025 at 08:18 PM EDT Sign off status: Pending * Provider: Stone bustillo Migration Date: 0 06/28/2024 Generated for Olayinka montalvo/Sulma/Alberto on: 1 08:18 PM EDT
--- OUTSIDE RECORDS SUMMARY | 2024-11-11 09:45 | XMS_ITS | Encounter Summary ---
Author Organization [facility] Address [address] [place] [address] Care Team Providers Care Railroad Track Inspector Name Role Phone Anatoliy Pulliam MD Primary Care Provider [phone] Reason for Referral * Diagnostic Imaging (Routine) - Authorized Specialty Diagnoses / Procedures Referred By Contac t Referred To Contact Radiology Diagnoses Age related osteoporosis, unspecified pathological fracture presence Procedures DEXA Bone Density Axial Faustina Obregon APRN [address] [address] Phone: tel: fax: [facility] DEXA [address] [address] Phone: tel: fax: Referral ID Status Reason Start Date Expiration Date V isits Requested Visits Authorized [id number] Authorized 11/11/2024 02/10/2026 1 1 Reason for Visit * Reason Comments Systemic lupus erythematosus, unspecifie d SLE type, unspeci Encounter Details Date Type Department Care Team (Late st Contact Info) Description 11/11/2024 9:45 AM EDT Office Visit [facility] [address] [place] [address] Faustina Obregon APRN [address] [address] Systemic lupus erythematosus, unspecified SLE type, unspecified organ involvement status (Primary Dx); High risk medication use; Fibromyalgia; Generalized osteoarthrosis, involving multiple sites; Age related osteoporosis, unspecified pathological fracture presence Social History Tobacco Use Types Packs/Day Years Used Date Smoking Tobacco: Every Day Cigarettes 0.5 43.8 Started: 1981 Smokeless Tobacco: Never Tobacco Cessation:Ready [...] pain 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 Smiley) mtx very helpful -- [...] Fosamax started 01/2018-02/15 (5 years therapy) DEXA [facility] 04/28/20 right hip -2.7, left [...] still current and accurate. Faustina Obregon APRN [facility] [place] documented in this encounter Plan of Treatment Upcoming Encounters Date Type Department Care Team (Late st Contact Info) Description 03/13/2025 8:00 AM EST Appointment [facility] DEXA [address] [address] 03/13/2025 8:30 AM EST Office Visit [facility] [address] [address] Faustina Obregon APRN [address] [address] Scheduled Orders Name Type Priority Associated Diagnoses [...] presence documented in this encounter Care Teams Railroad Track Inspector Relationship Specialty Start Date End Date Anatoliy Pulliam MD [address] [facility] [address] [place] [address] PCP - General Adolescent Medicine 08/30/23 documented as of this encounter
--- OUTSIDE RECORDS SUMMARY | 2025-01-04 20:18 | XMS_ITS | Encounter Summary ---
Author Organization [facility] Address [address] [id number] Care Team Providers Care Smutter Name Role Phone Anatoliy Pulliam MD Primary Care Provider [phone] Reason for Visit * Reason Comments Med Refill Encounter Details Date Type Department Care Team (Late st Contact Info) Description 11/27/2024 Refill [facility] [address] [address] Karl Yuan MD [address] [place] [address] Social History Tobacco Use Types Packs/Day Years Used Date Smoking Tobacco: Every Day Cigarettes 0.5 43.8 Started: 1981 Smokeless Tobacco: Never Alcohol Use [...] Info) Description 03/13/2025 8:00 AM EST Appointment [facility]HEUM[facility] DEXA [address] [address] 03/13/2025 8:30 AM EST Office Visit [facility] [address] [address] Faustina Obregon APRN [address] [phone] documented as of this encounter Visit Diagnoses Not on filedocumented in this encounter Care Teams Smutter Relationship Specialty Start Date End Date Anatoliy Pulliam MD [address] [facility] [address] [facility] [address] [place] [address] PCP - General Adolescent Medicine 08/30/23 documented as of this encounter
--- OUTSIDE RECORDS SUMMARY | 2025-01-04 20:19 | XMS_ITS | Encounter Summary ---
Author Organization [facility] Address [address] [place] [address] Care Team Providers Care Wholesale Diamond Broker Name Role Phone Anatoliy Pulliam MD Primary Care Provider [phone] Encounter Details Date Type Department Care Team [...] Info) Description 03/13/2025 8:00 AM EST Appointment [facility] RHEUMATOLOGY DEXA [address] [address] 03/13/2025 8:30 AM EST Office Visit [facility] [address] [place] [address] Faustina Obregon APRN 330 [facility] [address] [place], [place] [phone] documented as of this encounter Visit Diagnoses Not on filedocumented in this encounter Care Teams Wholesale Diamond Broker Relationship Specialty Start Date End Date Anatoliy Pulliam MD [address] [facility] [address] [facility] [address] [place] [address] PCP - General Adolescent Medicine 08/30/23 documented as of this encounter
--- OUTSIDE RECORDS SUMMARY | 2025-01-04 20:19 | XMS_ITS | Patient Health Record ---
Author Organization [facility] JHONNY Address [address] [place] [address] [facility] [address] [place] [address] Care Team Providers Care Milieu Coordinator Name Role Phone Anatoliy Cast Primary Care Provider Migration, Provider Unavailable Unavailable Allergies Allergen (clinical drug ingredient) Drug/Non Drug Allergy documented on EMR Reaction Allergy Type Onset Date Status SULFA (uncoded) Unknown Allergy Acti ve Results Component Value Reference Range Notes LIPID PANEL, STANDARD (7600) Reviewed date:10/20/2024 11:30:30 AM Interpretation: Performing Lab:[facility], [facility]-Juan R Nettlese[address] [facility], Juan R NettlesOoffGU[address] Boby Walden Notes/Report: NON-FASTING; NON-FASTING; NON-FASTING CHOLESTEROL, TOTAL 141 <200 mg/dL HDL CHOLESTEROL 62 > OR = 50 mg/dL TRIGLYCERIDES 93 <150 mg/dL LDL-CHOLESTEROL 61 Reference range: <100 Desirable range <100 mg/dL for primary prevention; <70 mg/dL for patients with CHD or diabetic patients with > or = 2 CHD risk factors. LDL-C is now calculated using the Grya-Faizan calculation, which is a validated novel method providing better accuracy than the Friedewald equation in the estimation of LDL-C. Gray REYES et al. KHOA. 2013;310(19): 7822-2498 (http://education.Parents Journey.SeeJay/faq/FAQ16 4) CHOL/HDLC RATIO 2.3 <5.0 (calc) NON HDL CHOLESTEROL 79 <130 mg/dL (calc) For patients with diabetes plus 1 major ASCVD risk factor, treating to a non-HDL-C goal of <100 mg/dL (LDL-C of <70 mg/dL) is considered a therapeutic option. COMPREHENSIVE METABOLIC PANE Joseph ([id number]) Reviewed date:10/20/2024 11:30:30 AM Interpretation: Performing Lab:[facility] [email or web address] Spsb1104 [facility] [employer], MATRIXX [id number] Boby Walden Notes/Report: NON-FASTING; NON-FASTING; NON-FASTING GLUCOSE [...] Reviewed date:10/20/2024 11:30:30 AM Interpretation: Performing Lab:[facility] [email or web address] Rqeo3049 [facility], MAT[employer] [id number] Boby Walden Notes/Report: NON-FASTING; NON-FASTING; NON-FASTING HEMOGLOBIN [...] diagnosis of diabetes in children. According to [place] Diabetes Association (ADA) guidelines, hemoglobin A1c <7.0% represents optimal control in non- diabetic patients. Different metrics may apply to specific patient populations. Standards of Medical Care in Diabetes(ADA). SCREEN MAMMO W CAD BILAT Reviewed date:10/20/2024 09:56:41 AM Interpretation: Performing Lab: Notes/Report: [address] [place] [address] Name: EUNICE JUAREZ Exam Date: 10/20/2024 : 1965 Age 59 years Gender: F Physician: ANATOLIY CAST Facility: [facility] Facility HSV: Outpatient Exam: MISAEL SCREEN MAMMO [...] the patient has breast surgery or biopsy, FDA/SA Regulatory Guidelines mandate that this facility receive pathologic results for follow-up correlation. Electronically signed by: Kai Medrano MD 10/20/2024 09:26 AM EDT Dictated By: Kai Medrano Transcribed By: Transcribed On: 10/20/2024 9:15 AM Electronically signed by: Kai Medrano 10/20/2024 Thank you for referring EUNICE JUAREZ to [facility]. Legally authenticated by GRAEME FOSTER MD 2024-10-20 09:15:00 Medications Medication SIG (Take, Route, Frequency, Duration) [...] four times a day; Duration: 30 days 12/16/2024 Active Methotrexate 2.5 MG 6 TABS ORALLY [...] Status Risk Notes Problem Generalized anxiety disorder (83254366) Generalized anxiety disorder (F41.1) Active confirmed Problem Chronic pain syndrome (465873215) Chronic pain syndrome (G89.4) Active confirmed Problem Vasomotor rhinitis (5235199) Vasomotor rhinitis (J30.0) Active confirmed Problem Allergic rhinitis (24758933) Other allergic rhinitis (J30.89) Active confirmed Problem Age-related osteoporosis (992783017) Age-related osteoporosis without current pathological fracture (M81.0) Active confirmed Problem Nicotine dependence (62469241) Personal history of nicotine dependence (Z87.891) Active confirmed Problem Tobacco use (322130975) Tobacco use disorder (Z72.0) Active confirmed Problem Hyperlipidemia (77939298) Hyperlipemia, idiopathic familial (E78.5) Active confirmed Problem Seasonal allergy (506704990) Seasonal allergies (J30.2) Active confirmed Problem Colitis (04474687) Colitis (K52.9) Active confi rmed Problem Urge incontinence of urine (66236478) Urge incontinence of urine (N39.41) Active confirmed Problem Gastroesophageal reflux disease without esophagitis (156539852) Gastroesophageal reflux disease without esophagitis (K21.9) Active confirmed Problem COPD - Chronic obstructive pulmonary disease (88965679) Chronic obstructive pulmonary disease, unspecified COPD type (J44.9) Active confirmed Problem Body mass index 25-29 - overweight (255118650) BMI 28.0-28.9,adult (Z68.28) Active confirmed Problem Osteoarthritis (811534221) Arthritis of multiple sites (M19.90) Active confirmed Problem Raynaud's disease (868766202) Raynauds phenomenon without gangrene (I73.00) Active confirmed Problem Chronic sinusitis (18465938) Purulent postnasal drainage (J32.9) Active confirmed Problem Chronic maxillary sinusitis (15850455) Chronic sinusitis of both maxillary sinuses (J32.0) Active confirmed Problem Gastroesophageal reflux disease (disorder) (115780664) Chronic GERD (K21.9) Active confirmed Problem Adult health examination (498285477) Healthcare maintenance (Z00.00) Active confirmed Problem Irritable bowel syndrome characterized by constipation (905277830) Irritable bowel syndrome with constipation (K58.1) Active confirmed Problem Menopausal symptom (15245933) Menopausal symptoms (N95.1) Active confirmed Problem Systemic lupus erythematosus (58836734) Systemic lupus erythematosus, unspecified SLE type, unspecified organ involvement status (M32.9) Active confirmed Problem Systemic lupus erythematosus (92871418) Other systemic lupus erythematosus with other organ involvement (M32.19) Active confirmed Problem Long-term current use of drug therapy (230940311) 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) Active [...] 10/16/2024 Encounters Encounter Location Date [facility] [address] [place] [address] 06/28/2024 Provider Migration Arthritis of multiple sites M19.90 and Irritable bowel syndrome with constipation K58.1 [facility] [address] [address] 01/17/2024 Anatoliy Besson Raynauds phenomenon without gangrene I73.00 ; Arthritis of multiple sites M19.90 ; Systemic lupus erythematosus, unspecified SLE type, unspecified organ involvement status M32.9 ; Hyperlipemia, idiopathic familial E78.5 ; Personal history of nicotine dependence Z87.891 ; Routine medical exam Z00.00 and Encounter for immunization Z23 [facility] [address] [address] 04/17/2024 Anatoliy Besson Raynauds phenomenon without gangrene I73.00 ; Tobacco use disorder Z72.0 ; Chronic pain syndrome G89.4 ; Systemic lupus erythematosus, unspecified SLE type, unspecified organ involvement status M32.9 ; Immunosuppression due to drug therapy Z79.899 ; Other allergic rhinitis J30.89 ; Chronic GERD K21.9 and Routine medical exam Z00.00 [facility] [address] [address] 07/17/2024 Anatoliy Cast Irritable bowel synd patricia with constipation K58.1 ; Arthritis of multiple sites M19.90 ; Systemic lupus erythematosus, unspecified SLE type, unspecified organ involvement status M32.9 and Personal history of nicotine dependence Z87.[address] [address] 10/16/2024 Anatoliy Cast Personal history of nicotine dependence Z87.891 ; Hyperlipemia, idiopathic familial E78.5 ; Family history of diabetes mellitus Z83.3 ; Chronic obstructive pulmonary disease, unspecified COPD type J44.9 ; Seasonal allergies J30.2 ; Screening mammogram, encounter for Z12.31 and Routine medical exam Z00.00 [facility] [address] [place] [address] 02/20/2024 Anatoliy Besson Arthritis of multipl e sites M19.90 [facility] [address] [place] [address] 03/27/2024 Anatoliy Besson Arthritis of multipl e sites M19.90 [facility] [address] [place] [address] 04/29/2024 Anatoliy Besson Irritable bowel synd patricia with constipation K58.1 and Arthritis of multiple sites M19.90 [facility] [address] [place] [address] 04/30/2024 Anatoliy Besson Arthritis of multipl e sites M19.90 and Irritable bowel syndrome with constipation K58.1 [facility] [address] [place] [address] 06/02/2024 Anatoliy Besson Arthritis of multipl e sites M19.90 [facility] [address] [place] [address] 07/01/2024 Anatoliy Besson Arthritis of multipl e sites M19.90 [facility] [address] [place] [address] 07/03/2024 Anatoliy Besson Arthritis of multipl e sites M19.90 [facility] [address] [place] [address] 08/01/2024 Anatoliy Besson Arthritis of multipl e sites M19.90 [facility] [address] [place] [address] 09/03/2024 Anatoliy Besson Arthritis of multipl e sites M19.90 [facility] [address] [place] [address] 10/03/2024 Anatoliy Besson Arthritis of multipl e sites M19.90 [facility] [address] [place] [address] 11/11/2024 Anatoliy Besson Arthritis of multipl e sites M19.90 [facility] [address] [place] [address] 12/16/2024 Anatoliy Besson Arthritis of multipl e sites M19.90 Assessments Encounter Date Diagnosis (ICD Code) Assessment Notes Treatment Notes Treatment Clinical Notes Section Notes 01/17/2024 Arthritis of multiple sites (ICD-10 - [...] warm with the onset of colder weather 02/20/2024 Arthritis of multiple sites (ICD-10 - M19.90) 03/27/2024 Arthritis of multiple sites (ICD-10 - M19.90) 04/29/2024 Irritable bowel syndrome with constipation (ICD-10 - K58.1) 04/30/2024 Arthritis of multiple sites (ICD-10 - M19.90) 06/02/2024 Arthritis of multiple sites (ICD-10 - M19.90) 06/28/2024 Arthritis of multiple sites (ICD-10 - M19.90) 07/03/2024 Arthritis of multiple sites (ICD-10 - M19.90) 08/01/2024 Arthritis of multiple sites (ICD-10 - M19.90) 09/03/2024 Arthritis of multiple sites (ICD-10 - M19.90) 10/03/2024 Arthritis of multiple sites (ICD-10 - M19.90) 11/11/2024 Arthritis of multiple sites (ICD-10 - M19.90) 07/17/2024 Arthritis of multiple sites (ICD-10 - M19.90) Patient has been compliant with our office and [place] regulations r.e. meds. No concerns on my part about diversion or misuse. Labs and Cihnedu reports reviewed and are appropriate. 07/17/2024 Irritable bowel syndrome with constipation (ICD-10 - K58.1) Overall stable. Uses dicyclomine as needed. No changes in plans 12/16/2024 Arthritis of multiple sites (ICD-10 - M19.90) [...] (ICD-10 - E78.5) - Repeat lipid panel 07/01/2024 Arthritis of multiple sites (ICD-10 - M19.90) 04/17/2024 Tobacco use disorder (ICD-10 - Z72.0) Continues to smoke 1 ppd. UTD on LDCT chest. Repeat due 10/2024. 04/17/2024 Raynauds phenomenon without gangrene (ICD-10 - I73.00) Chronic, controlled. Stopped ASA. No new ulcers. 04/17/2024 Chronic pain syndrome (ICD-10 - G89.4) Pain secondary to RA and SLE. Continue tramadol, cyclobenzaprine, and diclofenac as needed. 10/16/2024 Family history of diabetes mellitus (ICD-10 - Z83.3) - Check A1C 07/17/2024 Systemic lupus erythematosus, unspecified SLE type, unspecified organ involvement status (ICD-10 - M32.9) Follows with rheumatology, labs have been normal. Follow-up in 3 months for wellness exam and reevaluation of labs with ma 06/28/2024 Irritable bowel syndrome with constipation (ICD-10 - K58.1) 04/30/2024 Irritable bowel syndrome with constipation (ICD-10 - K58.1) 04/29/2024 Arthritis of multiple sites (ICD-10 - M19.90) 01/17/2024 Systemic lupus erythematosus, unspecified SLE type, unspecified organ involvement status (ICD-10 - M32.9) Follows rheumatology, on medications and lab monitoring has been appropriate 01/17/2024 Hyperlipemia, idiopathic familial (ICD-10 - E78.5) Reviewed previous medications 07/17/2024 Personal history of nicotine dependence (ICD-10 - Z87.891) Spent greater than 5 minutes discussing smoking cessation. Trial of going to half a pack a day with a visible plastic bag to hopefully self taper. Discussed trial of Wellbutrin. She is willing to do this. 04/17/2024 Systemic lupus erythematosus, unspecified SLE type, unspecified organ involvement status (ICD-10 - M32.9) Chronic, stable. Follows with rheum, f/u 04/2024. Continue hydroxyxhloroquine and methotrexare. 10/16/2024 Chronic obstructive pulmonary disease, unspecified COPD type (ICD-10 - J44.9) 04/17/2024 Immunosuppression due to drug therapy (ICD-10 - Z79.899) Methotrexate and hydroxyxhloroquine per above. UTD on labs and eye exams. 10/16/2024 Seasonal allergies (ICD-10 - J30.2) - Refill singular and Xyzal for allergies 01/17/2024 Personal history of nicotine dependence (ICD-10 [...] Screening mammogram, encounter for (ICD-10 - Z12.31) 04/17/2024 Chronic GERD (ICD-10 - K21.9) Chronic, controlled. Continue omeprazole 40 mg. 10/16/2024 Routine medical exam (ICD-10 - Z00.00) - No memory concerns, was able to recall 3 words - No recent falls, feels safe at home - Vaccines UTD, will do pneumonia shot after age 60 - Gets Dexa scans through [facility] - Colonscopy scheduled this fall with history of partial colectomy - Due for mammogram, referral placed 01/17/2024 Encounter for immunization (ICD-10 - Z23) [...] 01/02/2007 Rapid Strep 11/08/2007 H-CRP 01/02/2007 N-CMP 10/04/2009 N-CMP 07/22/2008 N-CMP 05/04/2008 N-cbc 02/26/2007 Physical Therapy 01/05/2009 N-Rheumatoid Factor 01/02/2007 Mammogram : Bilateral 01/04/2023 Mammogram : Bilateral 07/31/2017 I-dlgr-zysacrj anti boidies 12/18/2007 C-URINE CULTURE 09/06/2010 C-URINE CULTURE 03/01/2020 Urine Culture, Routine 04/06/2022 Future Test Test Name Order Date N-CBC 10/31/2007 N-CMP 10/31/2007 Next Appt Details Provider Name:Anatoliy Wright Narendrajoel, 01/15/2025 09:30:00 AM, [address] [place] [address], [phone], Insurance Providers Payer Name Payer Address Payer Phone Subscriber Number Group Number Insured Name Patient Relationship to Insured Coverage Start Date Coverage End Date [employer] [address] [address] [place] [address] [id number] Eunice Juarez Self - patient is the [...]
--- OUTSIDE RECORDS SUMMARY | 2025-01-04 20:19 | XMS_ITS | Encounter Summary ---
[facility] Address [address] [id number] Care Team Providers Care Etiologist Name Role Phone Anatoliy Pulliam MD Primary Care Provider [phone] Encounter Details Date Type Department Care Team (Late Contact Info) Description 07/22/2024 Results Follow-Up [facility] [address] [address] Nakia Cotton APRN [address] [phone] Social History Tobacco Use Types Packs/Day Years [...] Info) Description 03/13/2025 8:00 AM EST Appointment [facility] RHEUMATOLOGY DEXA [address] [address] 03/13/2025 8:30 AM EST Office Visit [facility] [address] [address] Faustina Obregon APRN [address] [id number] documented as of this encounter Visit Diagnoses Not on filedocumented in this encounter Care Teams Etiologist Relationship Specialty Start Date End Date Anatoliy Pulliam MD [address] [facility] [address] [phone] PCP - General Adolescent Medicine 08/30/23 documented as of this encounter
--- OUTSIDE RECORDS SUMMARY | 2025-01-04 20:19 | XMS_ITS | Data Portability ---
Author Organization [facility] CLOS[facility] Address [address] [facility] [place] [address] Assessment Encounter Date Assessment Date Assessment LastModified by Organization Details LastModified Time 05/06/2018 05/06/2018 Mrs. Ledbetter is a 53-year-old woman who was referred for an endoscopy and this was performed by Dr. Weeks. At that time he identified a polyp at the first fold of the ascending colon and removed it. There were some sort of indentation in this area and it was difficult to removed so a follow-up colonoscopy was scheduled 3 months later. This was done last week and unfortunately residual polyp was noted. This is not amenable to endoscopic resection and she is here today for evaluation and recommendations. Past medical history was reviewed with the patient and documented on the chart. Physical exam: Respiration 16 pulse 92 blood pressure 108/72 BMI is 28.3 Gen.: Well-developed, oriented 3, in no obvious distress HEENT: Normocephalic atraumatic extraocular muscles intact no scleral icterus nasoplasty his are patent without discharge. Oropharynx is clear. Neck is soft and supple without lateral cervical adenopathy or JVD. Chest: No accessory muscle use lungs are clear to auscultation. Heart is regular rate and rhythm without murmur. Abdomen: Soft nontender nondistended positive bowel sounds. No masses no a past splenomegaly. : Grossly normal, no inguinal adenopathy or herniation Extremities: Positive pulses no signs clubbing or edema. Neuro: Cranial nerves II through XII grossly intact no focal motor sensory deficits. Assessment: I long and detailed discussion with Mrs. Juarez and recommended a partial robotic right hemicolectomy. I'll also advise repeat colonoscopy performed by me with tattooing of the lesion the day before surgery. We discussed the technical aspects of the surgical procedure as well as the risks of surgery including bleeding, infection, heart attack, stroke, bowel injury, etc. After long and detailed discussion the patient has agreed to proceed. I will schedule her at her convenience. [email or web address] Not available 05/06/2018 11:34:05 06/11/2018 06/11/2018 PREOPERATIVE DIAGNOSIS: Recurrent right colon polyp. POSTOPERATIVE DIAGNOSIS: Recurrent right colon polyp. PROCEDURE: Colonoscopy to the cecum with tattoo of polyp. ANESTHESIA: General. COMPLICATIONS: None. SURGEON: Morris Temple MD INDICATIONS: Ms. Juarez is a woman who underwent a colonoscopy, was found to have an abnormal polyp and near the cecum. This was successfully removed. She had a repeat colonoscopy three months later for reevaluation and the polyp had recurred. I was showing her evidence of recurrence, so she was scheduled to see me and we have elected to proceed with surgical resection. She is here for preoperative tattooing. OPERATIVE NOTE: The patient was taken to the endoscopy suite and placed in the left lateral decubitus position and underwent general anesthesia. Digital rectal exam was performed, which was negative. Flexible endoscope was passed through the anorectal vault and advanced to the cecum. The cecum was identified with normal anatomic landmarks and the recurrent polyp was noted. This was successfully tattooed right at the area of the polyp and the retrograde inspection of the ascending, transverse, and descending colon with retroflexion performed. No other abnormalities were noted. Procedure was terminated without incident. The patient tolerated the procedure well. ASSESSMENT: Successful localization. Plans are to proceed with surgical resection tomorrow. [email or web address] Not available 06/11/2018 11:49:39 07/01/2018 07/01/2018 Mrs. Juarez returns following robotic right colectomy for a colon polyp. Pathology identified benign disease without dysplasia. The wounds are intact without infection. She is doing very well. I'll see her back in a month's time [email or web address] Not available 07/01/2018 11:21:39 07/29/2018 07/29/2018 Mrs. Juarez returns a month out following robotic right hemicolectomy for dysplastic polyp. She is doing very well without serious complaints or issues. The wounds are intact without infection. She is tolerating a regular diet. Follow-up as needed [email or web address] Not available 07/29/2018 11:58:28 Plan of Treatment Reminders Order Date Submit Date Provider Last Modified By Organization Details Last Modified Time Details Appointments None record ed. Lab None record ed. Referral None record ed. Procedures None record ed. Surgeries None record ed. Imaging None record ed. Medication Orders None record ed. Patient TargetsNo targets recorded. Patient Instructions Encounter Date Encounter Id Patient Instructions Last Modified By Organization Details Last Modified Time 05/06/2018 [id number] colon polyps: care instructions [email or web address] Not available 05/06/2018 11:34:05 07/01/2018 [id number] colon polyps: care instructions [id number] Not available 07/01/2018 11:21:39 07/29/2018 [id number] colon polyps: care instructions [id number] Not available 07/29/2018 11:58:29 Reason for Referral None Reported. Results Created Date Observation Date Name Description Value Unit Range Abnormal Flag Note LastModifiedBy Organization Detail LastModifiedTime 04/02/19 19 04/02/2018 surgi isamar patho logy study surgical pathology procedure SEE BELOW Depar tment of Patho logy Surgi isamar Patho logy Repor t NAME: NIKI IBRAHIM, FRANCISCO AL PATH. :[id number] Copy to: Diagn osis: A) Ascen ding polyp : Fragm ents of sessi le hari nara adeno ma. B) Ascen ding colon biops y: Fragm ents of sessi le hari nara adeno ma. SOURC E OF SPECI MEN: POLYP , ASCEN DING ASCEN DING COLON BIOPS Y CLINI ISAMAR INFOR MATIO N: HX OF POLYP S Gross Descr iptio n: A) Recei annie in forma malika label ed with the patie nt's name and desig nated as asce nding polyp are multi ple piece s hightower brown tissu e, proba ble forei gn/fe isamar mater ial, rangi ng in size from 0.2-0 .6 cm in great est dimen theodore. Entir dennis submi tted in one casse tte. B) Recei annie in forma malika label ed with the patie nt's name and desig nated as asce nding colon biops y are two fragm ents of pale hightower tissu e measu ring 0.2 cm and 0.3 cm. Entir dennis submi tted in one casse tte. SB 04/03 07:43 PM Micro scopi c Descr iptio n: A micro scopi c exami natio n has been perfo rmed. ROBERTA CROFT MD Jackie d Out Date: 04/04 12:47 Page 1 of 1 Not Available [facility] [address] [place] [address], [phone], 04/04/2018 12:48:18 Result Notes None recorded. 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 From Automated Load;Provi ani: Henry, Sita;St atus: Active Machelle Yuan [facility] 9 07:39:10 Candidias is 90364182 Active 2014 From Automated Load;Provi ani: Henry, Sita;St atus: Active Machelle Yuan [facility] 9 07:39:10 Hemorrhoi ds 45130037 Active 2015 From Automated Load;Provi ani: Henry, Sita;St atus: Active Machelle Yuan [facility] 9 07:39:10 Chronic constipat ion 643248599 Active 2015 From Automated Load;Provi ani: Henry, Sita;St atus: Active Machelle Yuan [facility] 9 07:39:11 Irritable bowel syndrome 51428964 Active 2015 From Automated Load;Provi ani: Henry, Sita;St atus: Active Machelle Yuan [facility] 9 07:39:10 Clinical finding Active 2015 From Automated Load;Provi ani: HenryRonaSita;St atus: Active Machelle Yuan [facility] 9 07:39:10 Pain of joint of wrist 174820984 Active 2015 From Automated Load;Provi ani: Rona Figueroaissa;St atus: Active Machelle Yuan [facility] 9 07:39:10 Acute sinusitis 82715402 Active 2015 From Automated Load;Provi ani: Anastacia Martinez;S tatus: Active Machelle Yuan [facility] 9 07:39:11 Acute abdomen 3339709 Active 2015 From Automated Load;Provi ani: Anastacia Martinez;S tatus: Active Machelle Yuan [facility] 9 07:39:10 Nausea 534436763 Active 2015 From Automated Load;Provi ani: Anastacia Martinez;S tatus: Active Machelle Yuan [facility] 9 07:39:10 Wheezing 99115075 Active 2015 From Automated Load;Provi ani: Henry, Sita;St atus: Active Machelle Yaun [facility] 9 07:39:10 Acute bronchiti s 49843502 Active 2015 From Automated Load;Provi ani: Rona Figueroaissa;St atus: Active Machelle Kwabena [facility] 9 07:39:10 Impacted cerumen 24249764 Active 2015 From Automated Load;Provi ani: Henry, Sita;St atus: Active Machlele Yuan [facility] 9 07:39:10 Polyp of colon 43155438 Active 2018 [facility] 9 10:58:01 Problem Notes None recorded. Procedures Surgical History Date Name Laterality Status Provider Name and Address Organization Details Recorded Time 9 partial resection of colon completed [facility] 07/01/2018 11:07:41 extraction of wisdom tooth completed [facility] 05/06/2018 11:00:15 Imaging Results None recorded. Procedure Notes None recorded. Medical Equipment None Reported. Allergies Allergen ID Allergen Name Allergen Category Reaction Reaction Severity Criticality Documentation Date Start Date Code Code System Note Provider Name and Address Organization Details Recorded Time 463127 folic acid medicatio n nausea Not available Not available 02/17/20162014 4511 RxNorm React ion: STOMA CH\GI UPSET ; Comme nt: Creat ed By: Rorojones meka Beckett; Creat ed Date: 015 3:42: 08 PM; Not Available [facility] 6 12:43:14 439984 Substance with sulfonami de structure and antibacte rial mechanism of action (substanc e) medicatio n hives Not available Not available 02/18/20162009 97614 8003 SNOMED React ion: HIVES ; Comme nt: Creat ed By: Carly reyesCre ated Date: 2009 9:08: 18 AM; Not Available [facility] 6 05:49:56 535928 metronida zole medicatio n Not available Not available Not available 06/14/2018 6922 RxNorm [facility] 07:39:09 Medications Name Sig Start Date Stop Date Status Note LastModified by Organization Details LastModified Time nicotine patch 21mg active Not Available Not Available N ot Available cyclobenza amol 10 mg tablet Two times a day 05/06 completed Frequen cy: bid;Med ication Descrip tion: cyclobe nzaprin e; Dosage: 1; Route:o ral; refills :0 Not Available Not Available Not Available nystatin 100,000 unit/mL oral suspension active Not Available Not Available N ot Available nabumetone 750 mg tablet Daily 05/06 completed Duratio n: 10 days;Fr equency : daily;M edicati on Descrip tion: nabumet one; Dosage: 1; Route:o ral; refills :0; Quantit y:60 tablet Not Available Not Available Not Available cetirizine 10 mg tablet active Not Available Not Available Not Available fluconazol e 150 mg tablet active Not Available Not Available Not Available Claritin 10 mg tablet Daily 05/06 completed Frequen cy: daily;A lt Frequen cy: prn;Med ication Descrip tion: loratad ine; Dosage: 1; Route:o ral; refills :0; Quantit y:30 tablet Not Available Not Available Not Available fluconazol e 200 mg tablet Take 2 tablets every day by oral route as directed for 3 days. active Not Available Not Available No t Available alendronat e 70 mg tablet active Not Available Not Available Not Available acetaminop hen 300 mg-codeine 30 mg tablet Three times a day active Not Available Not Available No t Available omeprazole 40 mg capsule,de layed release active Not Available Not Available Not Available amoxicilli n 875 mg tablet 05/06 completed Not Available Not Available Not Available methotrexa te sodium 2.5 mg tablet Every week active Not Available Not Available No t Available Flagyl 500 mg tablet Take 1 tablet by oral route as directed for 1 day. 07/01 completed Not Available Not Available Not Available doxycyclin e monohydrat e 100 mg capsule 05/06 completed Not Available Not Available Not Available gabapentin 300 mg capsule active Not Available Not Available Not Available sertraline 25 mg tablet Daily active Frequen cy: daily;M edicati on Descrip tion: sertral ine; Dosage: 1; Route:o ral; refills :0 Not Available Not Available Not Available folic acid 1 mg tablet active Not Available Not Available Not Available montelukas t 10 mg tablet 05/06 completed Not Available Not Available Not Available aspirin 81 mg tablet Daily 05/06 completed Duratio n: 30 days;Fr equency : daily;M edicati on Descrip tion: aspirin ; Dosage: 1; Route:o ral; refills :0; Quantit y:30 tablet Not Available Not Available Not Available hydroxychl oroquine 200 mg tablet Daily active Not Available Not Available Not Available polyethyle ne glycol 3350 17 gram/dose oral powder 05/06 completed Not Available Not Available Not Available neomycin 500 mg tablet Take 2 tablets by oral route as directed for 1 day. 07/01 completed Not Available Not Available Not Available cefdinir 300 mg capsule Take 1 capsule every 12 hours by oral route for 10 days. 05/06 completed Not Available Not Available Not Available fluticason e propionate 50 mcg/actuat ion nasal spray,susp ension active Not Available Not Available Not Available sertraline 50 mg tablet active Not Available Not Available Not Available Ventolin HFA 90 mcg/actuat ion aerosol inhaler Four times a day active Not Available Not Available No t Available diltiazem 90 mg tablet Bedtime 05/06 completed Frequen cy: hs;Medi cation Descrip tion: diltiaz em; Dosage: 1; Route:o ral; refills :0 Not Available Not Available Not Available methotrexa te sodium (PF) 25 mg/mL injection solution active Not Available Not Available Not Available cyclobenza amol 5 mg tablet active Not Available Not Available Not Available gabapentin 300 mg tablet Every night at bedtime active Frequen cy: qhs;Med ication Descrip tion: gabapen tin; Dosage: 1/2; Route:o ral; refills :0 Not Available Not Available Not Available lactulose 10 gram/15 mL oral solution 05/06 completed Not Available Not Available Not Available Calcium-Vi tamin D Daily 05/06 completed Frequen cy: daily;M edicati on Descrip tion: calcium -vitami n D; Dosage: 2; Route:o ral; refills :0 Not Available Not Available Not Available prednisolo ne Every morning 05/06 completed Frequen cy: qam;Med ication Descrip tion: prednis olone; Dosage: 1; Route:o ral; refills :0 Not Available Not Available Not Available Vitamin D3 Daily active Frequen cy: daily;M edicati on Descrip tion: choleca lcifero l; Dosage: 1; Route:o ral; refills :0 Not Available Not Available Not Available GaviLyte-G 236 gram-22.74 gram-6.74 gram-5.86 gram oral solution as directed 07/01 completed Not Available Not Available Not Available Dexilant 60 mg capsule, delayed release Daily active Frequen cy: daily;M edicati on Descrip tion: dexlans oprazol e; Dosage: 1; Route:o ral; refills :0 Not Available Not Available Not Available TRUEplus Insulin 1 mL 29 gauge x 1/2 syringe active Not Available Not Available Not Available Linzess 145 mcg capsule Take 1 capsule every day by oral route. 05/06 completed Not Available Not Available Not Available Linzess 290 mcg capsule 05/06 completed Not Available Not Available Not Available Linzess 72 mcg capsule 05/06 completed Not Available Not Available Not Available Vitals Date Recorded Body height Body mass index (BMI) Body weight Heart rate Systolic And Diastolic Provider Name and Address Organization Details Last Updated DateTime 05/06/2018 162.56 cm 28.3 kg/m2 89604.74 g 92 /min 108/72 mm[Hg] [facility] 9 10:53:27 Date Recorded Body height Body mass index (BMI) Body weight Heart rate Systolic And Diastolic Provider Name and Address Organization Details Last Updated DateTime 07/01/2018 162.56 cm 28.3 kg/m2 56004.74 g 88 /min 110/78 mm[Hg] [facility] 9 11:06:38 Date Recorded Body height Body mass index (BMI) Body weight Heart rate Systolic And Diastolic Provider Name and Address Organization Details Last Updated DateTime 07/29/2018 162.56 cm 28.3 kg/m2 86081.74 g 75 /min 100/78 mm[Hg] [facility] 9 10:44:49 Social History Question Answer Notes LastModified by Metaat ion Details LastModified Time Tobacco Smoking Status Current Every Day Smoker [facility] 05/06/2018 10:59:55 What Was The Date Of Your Most Recent Tobacco Screening? 07/29/2018 Information n ot available 05/13/2019 How Much Tobacco Do You Smoke? 1.5 PPD [email or web address] Information not available 05/06/2018 Sex: Unknown Functional Status None recorded. Mental Status None recorded. Family History Relationship Description Onset Age of this Age Resolved Age Notes LastModified by Organization Details LastModified Time Maternal Aunt Malignant neoplasm of breast [email or web address] Not available 04/26 10:58:14 Maternal Aunt Diabetes mellitus [email or web address] Not available 04/26 10:59:15 Sister Disorder of thyroid gland [id number] Not available 04/26 10:58:39 Sister Migraine [email or web address] Not availa ble 05/06/2018 10:59:46 Father Hypertensive disorder [email or web address] Not available 04/26 10:59:32 Mother Hypertensive disorder [email or web address] Not available 04/26 10:59:32 Medical History No medical history recorded. Gynecological HistoryNo gynecological history recorded. Obstetrics History GPAL:G 0 P 0 0 0 0 Past Encounters Encounter ID Performer Location Encounter Start Date Encounter Closed Date Diagnosis/Indication Diagnosis SNOMED-CT Code Diagnosis ICD10 Code Diagnosis IMO Codes Diagnosis Note [id number] [facility] [address] 06/27/2016 08:30:58 06/27/2016 08:30:58 [id number] SAMIA COFFMAN MD SURGERY SCHEDULE [address] [place] [address] 1 01/01/2018 08:30:37 01/01/2018 08:37:07 [facility] [id number] K59.00 [id number] SAMIA COFFMAN MD SURGERY SCHEDULE [address] [place] [address] 1 04/02/2018 09:22:25 04/02/2018 09:23:01 [id number] Lolita TEMPLE MD GENERAL SURGERY [address] [place] [address] 1 05/06/2018 10:29:38 05/06/2018 12:05:10 Polyp of colon 10056164 K63.5 [id number] Lolita TEMPLE MD SURGERY SCHEDULE [address] [place] [address] 1 06/11/2018 07:10:29 06/11/2018 07:11:28 [id number] Lolita TEMPLE MD GENERAL SURGERY [address] [place] [address] 1 07/01/2018 10:52:58 07/01/2018 11:24:59 Polyp of colon 61821480 K63.5 [id number] Lolita TEMPLE MD GENERAL SURGERY [address] [place] [address] 1 07/29/2018 10:40:44 07/29/2018 12:44:22 Polyp of colon 39439501 K63.5 Health Concerns Section Related Observation LastModified by Organization Detai ls LastModified Time None Recorded Concern Status LastModified by Organization Details LastModified Time None Recorded Advance Directives Directive None Recorded Payers Insurance Date Sequence Insurance Name Policy Number Policy Molina Covered Member ID Molina Member ID Guarantor Name 06/05/2018 1 *SELF PAY* Elier Juarez 01/12/2022 1 [employer] - GOLD PLUS (MEDICARE REPLACEMENT/ ADVANTAGE - HMO) Natividad Juarez [id number] Natividad Juarez 01/01/2018 2 [place] [place]FS/TRADITIO NAL Natividad Etienne [id number] Natividad Juarez OBGykenyetta Episode No OBEpisode recorded.
--- OUTSIDE RECORDS SUMMARY | 2025-01-04 20:19 | XMS_ITS | Encounter Summary ---
[facility] Organization [facility] Address [address] [id number] Care Team Providers Care Operations Support Specialist Name Role Phone Anatoliy Pulliam MD Primary Care Provider [phone] Encounter Details Date Type Department Care Team (Late Contact Info) Description 07/21/2024 Results Follow-Up [facility] [address] [address] Nakia Cotton APRN [address] [id number] Social History Tobacco Use Types Packs/Day Years [...] Info) Description 03/13/2025 8:00 AM EST Appointment [facility] DEXA [address] [address] 03/13/2025 8:30 AM EST Office Visit [facility] [address] [address] Faustina Obregon APRN [address] [phone] documented as of this encounter Visit Diagnoses Not on filedocumented in this encounter Care Teams Operations Support Specialist Relationship Specialty Start Date End Date Anatoliy Pulliam MD [address] [facility] [address] [phone] PCP - General Adolescent Medicine 08/30/23 documented as of this encounter
--- OUTSIDE RECORDS SUMMARY | 2025-01-04 20:19 | XMS_ITS | Clinical Summary ---
Author Organization [facility] Address [address] [place] [address] Care Team Providers Care Property Man Name Role Phone Anatoliy Pulliam MD Primary Care Provider [phone] Allergies Active Allergy Reactions Criticality Noted Date [...] Times a Day. 180 capsule 5 Active Active Problems Problem Noted Date Diagnosed [...] Fosamax started 01/2018-02/15 (5 years therapy) DEXA [facility] 04/28/20 right hip -2.7, left hip -2.0, lumbar spine -1.6 DXA [facility] 04/27/22 left total hip -2.2, left femoral neck -2.1, lumbar spine -1.7. Stopped Fosamax 02/15 (after 5 years of therapy) Continue weight bearing exercise Calcium and vitamin D supplementation discussed Repeat DEXA 04/2024 at [facility] Pain management 08/30/2023 Assessment & Plan (08/30/2023 [...] arthritis; Raynaud's, photosensitivity plaquenil 2006 ([facility], [facility] Dr. Smiley) mtx very helpful -- stopped 2016 with noncompliance labs; restart .. *Gabapentin, cyclobenzaprine Low disease activity from SLE. [...] Type Department Care Team Description 11/27/2024 Refill [facility] [address] [place] [phone] Karl Yuan MD 11/13/2024 Refill [facility] [address] [place] [phone] Faustina Obregon APRN 11/11/2024 9:45 AM EDT Office Visit [facility] [address] [place] [phone] Faustina Obregon APRN Systemic lupus erythematosus, unspecified SLE type, unspecified organ involvement status (Primary Dx); High risk medication use; Fibromyalgia; Generalized osteoarthrosis, involving multiple sites; Age related osteoporosis, unspecified pathological fracture presence 11/11/2024 Travel 10/27/2024 Telephone [facility] [address] [place] [phone] Karl Yuan MD 10/25/2024 Refill [facility] [address] [place] [phone] Karl Yuan MD Systemic lupus erythematosus, unspecified SLE type, unspecified organ involvement status; High risk medication use 10/13/2024 Telephone [facility] [address] [place] [phone] Karl Yuan MD from Last 3 Months [...] Info) Description 03/13/2025 8:00 AM EST Appointment [facility] DEXA [address] [address] 03/13/2025 8:30 AM EST Office Visit [facility] [address] [address] Faustina Obregon APRN [address] [place] [address] Health Maintenance Due Date Last Done Comments [...] WELLNESS VISIT 08/29/2023 HEPATITIS C SCREENING 08/29/2023 INFLUENZA VACCINE 10/24/2024 12/25/2016 Insurance MEDICARE ADVANTAGE PPO Care Teams Property Man Relationship Specialty Start Date End Date Anatoliy Pulliam MD [address] [facility] [address] [place] [address] PCP - General Adolescent Medicine 08/30/23
--- OUTSIDE RECORDS SUMMARY | 2025-01-04 20:19 | XMS_ITS | Encounter Summary ---
Author Organization [facility] Address [address] [id number] Care Team Providers Care Automatic Vulcanizing Operator Name Role Phone Anatoliy Pulliam MD Primary Care Provider [phone] Reason for Visit * Reason Onset Date Comments Med Refill 11/13/2024 Encounter Details Date Type Department Care Team (Late st Contact Info) Description 11/13/2024 Refill [facility] R[facility] [address] [facility] [address] [place] [address] Faustina Obregon APRN [address] [facility] [address] [place], [place] [id number] Social History Tobacco Use Types Packs/Day Years [...] Info) Description 03/13/2025 8:00 AM EST Appointment [facility]HEUMAT[facility] [place] [address] [phone] 03/13/2025 8:30 AM EST Office Visit [facility] RHEUMATOLOG[facility] [address] [phone] Faustina Obregon APRN [address] [facility] [address] [place] [address] documented as of this encounter Visit Diagnoses Not on filedocumented in this encounter Care Teams Automatic Vulcanizing Operator Relationship Specialty Start Date End Date Anatoliy Pulliam MD [address] [facility] [address] [place] [address] PCP - General Adolescent Medicine 08/30/23 documented as of this encounter
== END ==
LOC: SL 20:16
PROVIDERS: PCP Internal Medicine Adolescent Medicine; Visit Provider Internal Medicine Pulmonary Disease
DX: G47.30 Sleep apnea, unspecified (principal)